=== PATIENT | female | born 1960 | race Caucasian/White ===

== ENCOUNTER 2017-09-08 14:11 | Emergency (ER) | payer OTHER, SELFPAY ==
[2017-09-08 14:12] VITALS: BP 125/70; PULSE 80; RESP 16; TEMP 36.4; O2SAT 100; BMI 26.6
[2017-09-08 14:43] VITALS: O2SAT 96
--- NOTE | 2017-09-08 14:44 | EKG12_ITS ---
Test Reason : SOB Blood Pressure : / mmHG Vent. Rate : 075 BPM Atrial Rate : 075 BPM P-R Int : 160 ms QRS Dur : 090 ms QT Int : 424 ms P-R-T Axes : 063 042 060 degrees QTc Int : 473 ms Normal sinus rhythm Normal ECG Confirmed by MESHA NORTH, MARLEE ([id number]), technical editor EMANUEL FORREST ([id number]) on 09/12/2017 1:34:25 PM Referred By: DEB Confirmed By:MARLEE ZIMMER MD
--- NOTE | 2017-09-08 14:50 | RAD_ITS ---
STUDY: X-RAY CHEST REASON FOR EXAM: Female, 56 years old. SHORNTESS OF BREATH, HX BREAST CA, SKIN CA TECHNIQUE: Single AP portable view of the chest. COMPARISON: None. FINDINGS: The lungs are clear and expanded. There is no demonstrated pleural abnormality. Normal size heart. Normal mediastinum and john. Normal visualized pulmonary arteries. Normal visualized aortic arch and descending thoracic aorta. Normal visualized thoracic spine. There is degenerative osteoarthritis of the bilateral shoulders. There is no demonstrated abnormality of the visualized soft tissue structures of the upper abdomen. RAD/Chest 1 View (Portable) IMPRESSION: Degenerative changes, as described above. No demonstrated acute cardiopulmonary process. Electronically Signed: Gail Lara MD at 15:27 EDT Tel , Service support ,
[2017-09-08 14:58] VITALS: PULSE 78; RESP 18
[2017-09-08] MEDS: Ipratropium/Albuterol Sulfate 3 ML AMPUL.NEB INHALATION (14:58)
[2017-09-08 15:10] LABS: Absolute Lymphocyte Count 0.62 X10^3/ul (0.83-4.51); Absolute Neutrophil Count 6.8 X10^3/uL (2.0-7.7); Basophil# 0.01 X10^3/uL; Basophil% 0.1 % (0-1); Eosinophil# 0.11 X10^3/uL; Eosinophils% 1.3 % (0-5); Hematocrit 37.3 % (37-47); Hemoglobin 12.6 g/dl (12.0-15.0); Lymphocyte # 0.62 X10^3/ul (4.0); Lymphocyte % 7.5 % (19-41); Mean Corp Hgb Conc 33.8 g/gl (32-36); Mean Corpuscular Hgb 29.4 pg (27.0-32.0); Mean Corpuscular Volume 86.9 fL (81-99); Monocyte# 0.61 X10^3/uL; Monocyte% 7.4 % (0-10); Neutrophil # 6.84 X10^3/uL (2.7-7.7); Neutrophil % 83.3 % (47-70); POSITIVE COUNT NO; POSITIVE DIFFERENTIAL NO; POSITIVE MORPHOLOGY NO; Platelet Count 324 K/mm3 (150-450); RBC Distribution Width CV 13.2 % (11.6-14.6); RBC Distribution Width SD 41.8 fl (35.1-43.9); Red Blood Count 4.29 M/mm3 (4.2-5.4); White Blood Count 8.2 K/mm3 (4.4-11.0)
[2017-09-08] MEDS: 0.9% Normal Saline 1,000 ML 1000 ML IV (15:15)
[2017-09-08 15:18] VITALS: BP 107/62; PULSE 78; RESP 17; O2SAT 96
[2017-09-08 15:28] LABS: Anion Gap 9 (5-15); BUN 7 mg/dL (7-18); BUN/Creat Ratio 10.6 RATIO (10-20); Calcium,Total 8.7 mg/dL (8.5-10.1); Chloride 94 mmol/L (98-107); Creatinine, Serum 0.66 mg/dL (0.55-1.02); EST Glomerular Filtration Rate 98 mL/min (>60); Est Glom Filt Rate - Afr Amer 118 mL/min (>60); Estimated Creatinine Clearance 86.98 ml/min; Glucose 121 mg/dL (74-106); Potassium 3.1 mmol/L (3.5-5.1); Sodium Level 129 mmol/L (136-145)
[2017-09-08 15:42] LABS: BNP,B-Type NATRIURETIC PEPTIDE 6.7 pg/mL (0-100)
--- NOTE | 2017-09-08 16:18 | ED.DCSUM_ITS ---
- ER Visit Summary Date of Service: 09/08/17 Chief Complaint: Fluid in lungs History of Present Illness: The patient is a 56 F with shortness of breath and cough over the past 10 days. She also reports sputum and has been feeling ill. Her PCP started her on Z-Cyrus yesterday. She has had continued symptoms. Patient has a history of breast cancer in remission, thyroid cancer remotely, and skin cancer which she also believes is in remission but she did have a recent skin procedure where they took a large biopsy. Physical Examination: Vital signs are unremarkable. Afebrile. Appears uncomfortable but nontoxic or in distress. HEENT exam is unremarkable. Heart is regular rate and rhythm. Lungs show very faint crackles in the right base greater than left base. Extremities nontender. No edema. Skin appears normal in color. She is alert and oriented. Test Results: EKG shows sinus rhythm at a rate of 75. No sign of acute ischemia or infarction pattern. No sign of heart strain, S1 Q3 T3. CBC normal. Influenza test negative. Sodium 129, potassium 3.1, chloride 84. Troponin normal. BNP normal. Chest x-ray shows degenerative changes. Emergency Department Course and Treatment: Patient received fluids and a breathing treatment while awaiting results. She felt better afterwards. Her vitals remained stable. Patient has signs and symptoms of an infectious process. We did speak about PE. Her main risk factor is her history of malignancy. She has no other signs or symptoms to suggest PE. Her symptoms are consistent with an infectious process. Patient did not want to pursue further PE workup. Patient's potassium was replaced. Her sodium has been low in the past, but this is the lowest it has been. We talked to her about salt intake. I advised her that this can be serious if it becomes too low. She will follow-up with her doctor for recheck as soon as possible. She should return if she has any new or worsening issues. This is likely a viral process, but the patient should continue taking her azithromycin. Patient has an inhaler at home. She will be discharged. Treatment Plan: Above Disposition: Discharged Impression: 1. Flulike illness 2. Hypokalemia This note was generated with [employer] software. It may contain incorrect words, spelling, and punctuation that were not noted in review of the chart prior to signing ED Disposition - Plan for ED Patient: Chief Complaint: Shortness of Breath Referrals: Kvng Pena MD [Primary Care Provider] -
--- NOTE | 2017-09-08 16:19 | ED.DEP ---
ED Disposition - Plan for ED Patient: Chief Complaint: Shortness of Breath Instructions: ED Upper Resp Infec Abx Tx Prescriptions: Ondansetron [Zofran Odt] 4 mg PO Q8H PRN PRN #10 tab PRN Reason: Nausea Referrals: Kvng Pena MD [Primary Care Provider] - Additional Instructions: Follow-up with your doctor to recheck your lungs/symptoms and your blood work. Return if worse.
[2017-09-08 16:27] VITALS: BP 117/69; PULSE 82; RESP 16; O2SAT 98
== END 2017-09-08 16:53 | disposition home or self-care (01) ==
PROVIDERS: Emergency Provider Emergency Medicine; Family Provider Family Medicine; PCP Family Medicine
DX: J11.1 Influenza due to unidentified influenza virus with other respiratory manifestations (principal); E87.6 Hypokalemia; I10 Essential (primary) hypertension; Z85.3 Personal history of malignant neoplasm of breast; Z85.850 Personal history of malignant neoplasm of thyroid; Z85.828 Personal history of other malignant neoplasm of skin; Z79.899 Other long term (current) drug therapy
CPT/HCPCS: 71045; 80048; 83880; 84484; 85025; 87804; 93005; 94640; 96360; 99285; J7030; A4216

== ENCOUNTER → 2017-11-27 13:51 | Outpatient (CLI) | payer OTHER, SELFPAY ==
--- NOTE | 2017-11-27 13:51 | DT_ITS ---
This patient was seen during an EMR downtime November 20, 2017 - November 27, 2017. This patient may have a combination of paper and electronic documentation or all paper documentation. All documentation is viewable within the e-chart portion of [facility] for each patient visit.
--- NOTE | 2017-11-27 13:53 | BI_ITS ---
MAMMOGRAPHY - BILATERAL SCREENING REASON FOR EXAM: Female, 57 years old. Routine annual screening examination. PERTINENT HISTORY: LT LUMPECTOMY 12/2016 WITH RAD TX LT MOLE REMOVED-TURNED CANCEROUS DURING RAD TX LT STEREO BX AND EXC BX 2009, LT STEREO 2003, RT STEREO BX 2000 BILAT EXC BX 1995 P/H THYROID CANCER WITH RAD TX 1989 AGE 29 LT MOLE MARKED TECHNIQUE: Digital bilateral breast mario (3D mammographic acquisition) in the CC and MLO projections. 2-D mediolateral oblique (MLO) and craniocaudad (CC) views of both breasts were obtained. CAD: Full Field Digital Mammography with Computer Added Detection was performed. COMPARISON: 11/21/2016, 11/23/2016, 11/17/2015 and 11/12/2014 FINDINGS: Breast Composition: The breasts are heterogeneously dense, which may obscure small masses. There are no dominant masses or suspicious calcifications. There is a radial scar in the upper part of the left breast from prior lumpectomy. No other significant abnormalities are identified. BI/SCREENING MAMM (CAD), BILAT IMPRESSION: Stable bilateral screening mammogram. Yearly follow-up mammogram recommended. (A) ASSESSMENT CATEGORY: BIRADS Category 2: Benign. A letter regarding these results will be sent to the patient by the facility within 30 days. Approximately 10% of breast cancers are not detected by mammography. A normal mammogram should not delay biopsy of a clinically suspicious abnormality. [id number] Electronically Signed: Gail Lara MD at 12:07 EDT Tel , Service support ,
== END ==
PROVIDERS: Family Provider Family Medicine; PCP Family Medicine; Visit Provider Internal Medicine Hematology & Oncology
DX: Z12.31 Encounter for screening mammogram for malignant neoplasm of breast (principal); D05.12 Intraductal carcinoma in situ of left breast
CPT/HCPCS: 77063; 77067

== ENCOUNTER → 2018-04-28 08:45 | Outpatient (CLI) | payer OTHER, SELFPAY ==
[2018-04-28 09:46] LABS: Anion Gap 5 (5-15); BUN 17 mg/dL (7-18); BUN/Creat Ratio 17.4 RATIO (10-20); Chloride 97 mmol/L (98-107); Cholesterol 256 mg/dL (200); Creatinine, Serum 0.98 mg/dL (0.55-1.02); EST Glomerular Filtration Rate 62 mL/min (>60); Est Glom Filt Rate - Afr Amer 75 mL/min (>60); Glucose 106 mg/dL (74-106); High Density Lipoprotein 81 mg/dL; Potassium 3.4 mmol/L (3.5-5.1); Sodium Level 134 mmol/L (136-145); Thyroid Stim Hormone (TSH) 4.03 uIU/mL (0.358-3.74); Triglycerides 67 mg/dL; Very Low Density Lipoprotein 13 mg/dL (5-40)
== END ==
PROVIDERS: Family Provider Family Medicine; PCP Family Medicine; Referring Provider Family Medicine; Visit Provider Family Medicine
DX: I10 Essential (primary) hypertension (principal); E03.9 Hypothyroidism, unspecified; E78.00 Pure hypercholesterolemia, unspecified
CPT/HCPCS: 36415; 80048; 80061; 84443

== ENCOUNTER → 2018-07-28 08:27 | Outpatient (CLI) | payer OTHER, SELFPAY ==
[2018-07-28 10:05] LABS: Cholesterol 239 mg/dL (200); High Density Lipoprotein 65 mg/dL; T4 Free Direct 1.19 ng/dL (0.76-1.46); Thyroid Stim Hormone (TSH) 1.23 uIU/mL (0.358-3.74); Triglycerides 124 mg/dL; Very Low Density Lipoprotein 25 mg/dL (5-40)
== END ==
PROVIDERS: Family Provider Family Medicine; PCP Family Medicine; Referring Provider Family Medicine; Visit Provider Family Medicine
DX: E78.00 Pure hypercholesterolemia, unspecified (principal); E03.9 Hypothyroidism, unspecified
CPT/HCPCS: 36415; 80061; 84439; 84443

== ENCOUNTER → 2018-11-29 | Outpatient (CLI) | payer OTHER, SELFPAY ==
--- NOTE | 2018-11-29 09:50 | BI_ITS ---
MAMMOGRAPHY - BILATERAL SCREENING REASON FOR EXAM: Female, 57 years old. Routine annual screening examination. PERTINENT HISTORY: Personal history of breast cancer. Prior left lumpectomy with radiation treatment. Minimal left stereotactic breast biopsy and excisional breast biopsy. Prior right stereotactic and excisional breast biopsies. TECHNIQUE: Digital bilateral breast annetta (3D mammographic acquisition) in the CC and MLO projections. 2-D mediolateral oblique (MLO) and craniocaudad (CC) views of both breasts were obtained. CAD: Full Field Digital Mammography with Computer Added Detection was performed. COMPARISON: Comparison is made with prior study dated November 27, 2017 and December 21, 2016. FINDINGS: Breast Composition: The breasts are heterogeneously dense, which may obscure small masses. Postoperative architectural distortion in the upper central deep portion of the left breast in keeping with history of prior excisional biopsy. Stable 1 cm x 9.4 cm partially calcified nodule in the central retroareolar region of the right breast. This most likely represents a calcifying fibroadenoma. No other significant abnormalities are identified. There has been no significant change since the prior study. BI/SCREEN MAMM (CAD) W/ANNETTA BILAT IMPRESSION: Stable bilateral screening mammogram. Yearly follow-up mammogram recommended. (A) ASSESSMENT CATEGORY: BIRADS Category 2: Benign. A letter regarding these results will be sent to the patient by the facility within 30 days. Approximately 10% of breast cancers are not detected by mammography. A normal mammogram should not delay biopsy of a clinically suspicious abnormality. [id number] Electronically Signed: Indio Emerson, at 13:35 EDT , Service support ,
== END | disposition home or self-care (01) ==
LOC: OPBI 09:49
PROVIDERS: Family Provider Family Medicine; PCP Family Medicine; Referring Provider Internal Medicine Hematology & Oncology; Visit Provider Internal Medicine Hematology & Oncology
DX: D05.12 Intraductal carcinoma in situ of left breast (principal); N60.99 Unspecified benign mammary dysplasia of unspecified breast; Z12.31 Encounter for screening mammogram for malignant neoplasm of breast
CPT/HCPCS: 77063; 77067

== ENCOUNTER → 2019-07-26 | Outpatient (CLI) | payer OTHER, SELFPAY ==
[2019-07-26 16:56] LABS: ALB/GLOB Ratio 1.4 RATIO (0.9-2.4); AST(SGOT) 19 U/L (15-37); Alanine Aminotransfer ALT/SGPT 27 U/L (13-56); Albumin, Serum 4.2 g/dL (3.2-5.0); Alkaline Phosphatase 70 U/L (45-117); Anion Gap 4 (5-15); BUN 15 mg/dL (7-18); BUN/Creat Ratio 18.8 RATIO (10-20); Calcium,Total 9.4 mg/dL (8.5-10.1); Chloride 99 mmol/L (98-107); Cholesterol 238 mg/dL (200); EST Glomerular Filtration Rate 78 mL/min (>60); Est Glom Filt Rate - Afr Amer 94 mL/min (>60); Free T3 2.3 pg/mL (2.18-3.98); Globulin 3.1 g/dL (2.2-4.2); Glucose 90 mg/dL (74-106); High Density Lipoprotein 67 mg/dL; Potassium 3.7 mmol/L (3.5-5.1); Protein, Total 7.3 g/dL (6.4-8.2); Sodium Level 133 mmol/L (136-145); T4 Free Direct 1.28 ng/dL (0.76-1.46); Thyroid Stim Hormone (TSH) 1.04 uIU/mL (0.358-3.74); Triglycerides 97 mg/dL; Very Low Density Lipoprotein 19 mg/dL (5-40)
[2019-07-26 16:59] LABS: Vitamin D,25 Hydroxy 54.4 ng/mL (29.95-100.01)
== END | disposition home or self-care (01) ==
LOC: MFPLAB 14:20
PROVIDERS: PCP Family Medicine; Referring Provider Family Medicine; Visit Provider Family Medicine
DX: I10 Essential (primary) hypertension (principal); E03.9 Hypothyroidism, unspecified; E55.9 Vitamin D deficiency, unspecified
CPT/HCPCS: 36415; 80053; 80061; 82306; 84436; 84439; 84443; 84481

== ENCOUNTER → 2019-12-02 09:48 | Outpatient (CLI) | payer OTHER, SELFPAY ==
--- NOTE | 2019-12-02 09:51 | BI_ITS ---
MAMMOGRAPHY - BILATERAL SCREENING REASON FOR EXAM: Female, 59 years old. Routine annual screening examination. PERTINENT HISTORY: Personal history of breast cancer. Prior left lumpectomy and radiation treatment. TECHNIQUE: Digital bilateral breast annetta (3D mammographic acquisition) in the CC and MLO projections. 2-D mediolateral oblique (MLO) and craniocaudad (CC) views of both breasts were obtained. CAD: Full Field Digital Mammography with Computer Added Detection was performed. COMPARISON: Comparison is made with prior examination dated November 29, 2018 and November 27, 2017. FINDINGS: Breast Composition: The breasts are heterogeneously dense, which may obscure small masses. There are no dominant masses or suspicious calcifications. The patient is status post lumpectomy in the deep upper lateral aspect of the left breast. Postoperative scarring is seen. Stable thickening of the periareolar region. Stable 9.4 mm partially calcified nodule in the central retroareolar region of the right breast. This most likely represents a calcifying fibroadenoma. No other significant abnormalities are identified. There has been no significant change since the prior study. BI/SCREEN MAMM (CAD) W/ANNETTA BILAT IMPRESSION: Stable bilateral screening mammogram. Yearly follow-up mammogram recommended. (A) ASSESSMENT CATEGORY: BIRADS Category 2: Benign. A letter regarding these results will be sent to the patient by the facility within 30 days. Approximately 10% of breast cancers are not detected by mammography. A normal mammogram should not delay biopsy of a clinically suspicious abnormality. [id number] Electronically Signed: Indio Emerson, at 11:08 EDT , Service support ,
== END ==
PROVIDERS: PCP Family Medicine; Referring Provider Internal Medicine Hematology & Oncology; Visit Provider Internal Medicine Hematology & Oncology
DX: Z12.31 Encounter for screening mammogram for malignant neoplasm of breast (principal); D05.12 Intraductal carcinoma in situ of left breast
CPT/HCPCS: 77063; 77067

== ENCOUNTER → 2020-04-22 09:33 | Outpatient (CLI) | payer OTHER, SELFPAY ==
[2020-04-22 13:22] LABS: Anion Gap 6 (5-15); BUN 9 mg/dL (7-18); BUN/Creat Ratio 10.8 RATIO (10-20); Chloride 97 mmol/L (98-107); Cholesterol 232 mg/dL (200); Creatinine, Serum 0.84 mg/dL (0.55-1.02); EST Glomerular Filtration Rate 74 mL/min (>60); Est Glom Filt Rate - Afr Amer 89 mL/min (>60); Glucose 96 mg/dL (74-106); High Density Lipoprotein 71 mg/dL; Potassium 3.7 mmol/L (3.5-5.1); Sodium Level 133 mmol/L (136-145); Triglycerides 94 mg/dL; Very Low Density Lipoprotein 19 mg/dL (5-40)
== END ==
PROVIDERS: PCP Family Medicine; Referring Provider Family Medicine; Visit Provider Family Medicine
DX: E03.9 Hypothyroidism, unspecified (principal); I10 Essential (primary) hypertension
CPT/HCPCS: 36415; 80048; 80061; 84443

== ENCOUNTER → 2020-10-19 08:47 | Outpatient (CLI) | payer OTHER, SELFPAY ==
[2020-10-19 10:54] LABS: Anion Gap 8 (5-15); BUN 11 mg/dL (7-18); BUN/Creat Ratio 16.7 RATIO (10-20); Calcium,Total 9.2 mg/dL (8.5-10.1); Chloride 93 mmol/L (98-107); Cholesterol 206 mg/dL (200); Creatinine, Serum 0.66 mg/dL (0.55-1.02); EST Glomerular Filtration Rate 97 mL/min (>60); Est Glom Filt Rate - Afr Amer 117 mL/min (>60); Free T3 2.3 pg/mL (2.18-3.98); Glucose 104 mg/dL (74-106); High Density Lipoprotein 71 mg/dL; Potassium 3.4 mmol/L (3.5-5.1); Sodium Level 132 mmol/L (136-145); T4 Free Direct 1.68 ng/dL (0.76-1.46); Triglycerides 49 mg/dL; Very Low Density Lipoprotein 10 mg/dL (5-40)
== END ==
PROVIDERS: PCP Family Medicine; Visit Provider Family Medicine
DX: I10 Essential (primary) hypertension (principal); E03.9 Hypothyroidism, unspecified
CPT/HCPCS: 36415; 80048; 80061; 84439; 84443; 84481

== ENCOUNTER → 2020-12-04 08:28 | Outpatient (CLI) | payer OTHER, SELFPAY ==
--- NOTE | 2020-12-04 08:31 | BI_ITS ---
MAMMOGRAPHY - BILATERAL SCREENING REASON FOR EXAM: Female, 60 years old. Routine annual screening examination. PERTINENT HISTORY: Personal history of breast cancer. Prior left lumpectomy with radiation treatment. Remote left stereotactic biopsy. Prior right stereotactic biopsy and bilateral excisional breast biopsies. TECHNIQUE: Digital bilateral breast annetta (3D mammographic acquisition) in the CC and MLO projections. 2-D mediolateral oblique (MLO) and craniocaudad (CC) views of both breasts were obtained. CAD: Full Field Digital Mammography with Computer Added Detection was performed. COMPARISON: Comparison is made with prior study dated 12/02/2019 and 11/29/2018. FINDINGS: Breast Composition: The breasts are heterogeneously dense, which may obscure small masses. The patient is status post lumpectomy in the upper deep central portion of the left breast with resultant deformity and postoperative scarring. Since prior study, there has been an increase in the linear calcifications just anterior to the surgical site. A biopsy is recommended for further evaluation. Stable thickening of the areolar region of the left breast. Stable 9.4 mm partially calcified nodule in the central retroareolar region of the right breast. No other significant abnormalities are identified. BI/SCRN MAMM (CAD)W/ANNETTA BILAT IMPRESSION: Increasing calcifications in the anterior aspect of the left lumpectomy as compared to prior study. Tissue diagnosis is recommended. ASSESSMENT CATEGORY: BIRADS Category 4: Suspicious - Biopsy Should Be Considered. A letter regarding these results will be sent to the patient by the facility within 30 days. Approximately 10% of breast cancers are not detected by mammography. A normal mammogram should not delay biopsy of a clinically suspicious abnormality. [id number] Electronically Signed: Indio Emerson MD at 9:52 EDT , Service support ,
[2020-12-04 10:16] LABS: Free T3 2.6 pg/mL (2.18-3.98); T4 Free Direct 1.48 ng/dL (0.76-1.46); Thyroid Stim Hormone (TSH) 0.16 uIU/mL (0.358-3.74)
== END ==
PROVIDERS: PCP Family Medicine; Referring Provider Internal Medicine Hematology & Oncology; Visit Provider Internal Medicine Hematology & Oncology
DX: Z12.31 Encounter for screening mammogram for malignant neoplasm of breast (principal); D05.12 Intraductal carcinoma in situ of left breast; E03.9 Hypothyroidism, unspecified
CPT/HCPCS: 36415; 77063; 77067; 84439; 84443; 84481

== ENCOUNTER → 2020-12-16 10:42 | Outpatient (CLI) | payer OTHER, SELFPAY ==
[2020-12-14 05:22] VITALS: BMI 24.4
--- NOTE | 2020-12-16 | IMM_PTH ---
PATIENT: CLEMENTE GRANADOS LOC: [facility] U#:[id number] AGE/SX: 64/F ROOM: RE12/16/[address]: Dr. Patrice Bonilla MD : 1960 BED: DIS: SPEC #: [id number] RECD: 12/17/20 11:37 STATUS: KLARISSA REQ #: [id number] RENATA: 12/16/20 00:[address]: Patrice Bonilla DEPT: IMMUNOHISTOCHEMISTRY RECD BY: Maegan Reed ENTERED: 12/17/20 11:38 SP TYPE: IMMUNO OTHR DR: Dr. Kvng Kerr MD Tissues: Left breast, NOS Procedures: CALPONIN-1 (add) CK5-6 (add) CK8 (add) E-CAD (add) HER2 ROMULO (add) KI-67 (add) P53 (add) NC (add) P40 (add) ER (initial) [facility]YS[facility] INSTIT[facility] [address] [address] SPECIMEN INFORMATION: Tissue Source: Left breast Clinical Info: Left anterior to previous lumpectomy site breast microcalcifications Specimen Number: [id number] #2 CPT code: 75985, 11715 x6, 06965 x3 METHODOLOGY: Deparaffinized sections of prefer/formalin-fixed tissue or PAP/DQ stained slides are incubated with monoclonal/polyclonal antibodies/oligonucleotide probes. Localization is made via biotin free immunoperoxidase method. Appropriate controls are performed and reacted as expected. Results on target cell population are indicated in the following table: RESULTS: ANTIBODY / CLONE RESULT Block 2 P53 (DO-7) negative Ki-67 (30-9) positive, 15% CK8 (23bpwbW48) positive CK5-6 (D5 & 1684) negative Calponin-1 (HL754Z) positive P40 (BC28) positive E-Cad (ECH-6) positive MORPHOMETRIC ANALYSIS ER (clone 6F11) negative (0%) NC (clone 16/1E2) negative (0%) Her-2Neu (clone CB11) positive 3+ The prognostic test for HER2 is performed on formalin-fixed paraffin embedded tissue. A 3+ (positive) staining pattern is defined as intense, homogeneous, complete, circumferential membranous staining in >10% of contiguous tumor cells. A similar weak (2+) staining pattern is interpreted as equivocal. CRISTIANE follow-up testing is recommended for all equivocal cases. Positivity/negativity for ER/NC is reported if > or < 1% of the tumor cells are immuno- reactive, respectively. The ASCO/CAP criteria is used for scoring. Reference: Journal of Clinical Oncology, 2013; 31:8522-7380 & 2010; 16:5093-3183. Duration of fixation: 8.5 Hrs; Sample Adequate: Yes. These assays have not been validated on decalcified tissues. Results should be interpreted with caution given the likelihood of false negativity on decalcified specimens. These tests were developed and their performance characteristics determined by [facility]. They may not have been cleared or approved by the U.S. Food and Drug Administration. The FDA has determined that such clearance or approval is not necessary. The above immunohistochemical/dualISH markers are ordered and reviewed by the Pathologist. INTERPRETATION: Left breast, stereotactic core biopsy: Ductal carcinoma insitu. AM:wild 12/22/2020
--- NOTE | 2020-12-16 11:00 | HP.PCM_ITS ---
History and Physical Date of Admission: 12/16/20 Intake Visit Reasons: Birads 4 Chief Complaint: abn mammo left, hx breast cancer Manager Support Services Required: No Is patient in pain?: No Allergies ciprofloxacin [From Cipro] Adverse Reaction (Mild, Verified 12/14/20 07:35) GI upset Is last menstrual period known: No Post menopausal: Yes Patient : No PFSH Medical History (Updated 12/14/20 @ 07:[address] Patrice Bonilla MD) History of breast cancer History of skin cancer History of thyroid cancer Surgical History (Updated 12/14/20 @ 07:34 by Vicenta Tracy) History of bilateral breast biopsy History of lumpectomy of left breast History of tonsillectomy History of total thyroidectomy S/P fine needle biopsy Social History Smoking Status: Never smoker HPI HPI HPI: CLEMENTE GRANADOS, is a 60 F who presents to the office today for surgical consultation regarding abnormal mammogram. The patient is referred by Dr. Kvng Kerr and a written copy of my surgical consult recommendations will return to him. The patient has had multiple previous breast biopsies. She has had at least 2 previous lumpectomies on the right both benign. She thinks she is also previously had at least 2 biopsies on the left. Her most recent intervention on the left was performed by Dr. Nithin Terrazas. Stereotactic core biopsy by report demonstrated DCIS and then subsequently on December 21, 2016 he did a stereotactic wire localization with left breast lumpectomy and sentinel lymph node biopsy. 1 sentinel lymph node was negative. The specimen measured 7.5 x 7 x 4 cm. A 0.3 cm focus of DCIS was identified. She did receive post radiation therapy. A0. Menarche age 11. First child born when she was 20. She did not breast-feed. Family history is negative for breast cancer. She has not been on estrogen replacement therapy. She was on control therapy for approximately 3 years or earlier. She goes on to state that subsequent to the left breast lumpectomy close to that incision she developed a skin lesion of concern and in [facility] had that excised. She does not recall whether that was basal cell or squamous cell or melanoma. However no additional treatment has been offered. She notes that her left breast is constantly sore. No nipple discharge or bleeding MAMMOGRAPHY - BILATERAL SCREENING REASON FOR EXAM: Female, 60 years old. Routine annual screening examination. PERTINENT HISTORY: Personal history of breast cancer. Prior left lumpectomy with radiation treatment. Remote left stereotactic biopsy. Prior right stereotactic biopsy and bilateral excisional breast biopsies. TECHNIQUE: Digital bilateral breast annetta (3D mammographic acquisition) in the CC and MLO projections. 2-D mediolateral oblique (MLO) and craniocaudad (CC) views of both breasts were obtained. CAD: Full Field Digital Mammography with Computer Added Detection was performed. COMPARISON: Comparison is made with prior study dated 12/02/2019 and 11/29/2018. FINDINGS: Breast Composition: The breasts are heterogeneously dense, which may obscure small masses. The patient is status post lumpectomy in the upper deep central portion of the left breast with resultant deformity and postoperative scarring. Since prior study, there has been an increase in the linear calcifications just anterior to the surgical site. A biopsy is recommended for further evaluation. Stable thickening of the areolar region of the left breast. Stable 9.4 mm partially calcified nodule in the central retroareolar region of the right breast. No other significant abnormalities are identified. BI/SCRN MAMM (CAD)W/ANNETTA BILAT IMPRESSION: Increasing calcifications in the anterior aspect of the left lumpectomy as compared to prior study. Tissue diagnosis is recommended. ASSESSMENT CATEGORY: BIRADS Category 4: Suspicious - Biopsy Should Be Considered. A letter regarding these results will be sent to the patient by the facility within 30 days. Approximately 10% of breast cancers are not detected by mammography. A normal mammogram should not delay biopsy of a clinically suspicious abnormality. [id number] Electronically Signed: Indio Emerson MD at 9:52 EDT , Service support , December 21, 2016 MICROSCOPIC DIAGNOSIS A. Left breast lumpectomy with needle localization:Ductal carcinoma in situ.Focal fibrocystic changes and intraductal hyperplasia with atypia.Changes consistent with previous biopsy site. B. [place] lymph node, left, biopsy:One lymph node, negative for metastatic carcinoma.SJ:wild 12/26/16 DUCTAL CARCINOMA IN SITU SUMMARY:Specimen -partial breast.Procedure -excision with wire-guided localization.Lymph node sampling ?sentinel lymph node Specimen integrity -single intact specimen. Specimen size ?7.5 x 7 x 4 cm Specimen laterality ?leftTumor site ?center breast Size (extent) of DCIS ?0.3 x 0.3 cm (measured on microscopic slide)Number of blocks with DCIS -2Number of blocks examined -12Histologic type -ductal carcinoma in situ. Architectural patterns -comedoNuclear grade -Grade 3 (high)Necrosis -present, central (expansive comedo necrosis). Margins: Margins uninvolved by DCIS. See comment. A. The biopsy cavity is present close to the inferior margin, however, the focus of DCIS is 1.1 cm away from the closest inferior margin and is present adjacent to the biopsy cavity. ROS General General: Yes breast cancer; No weight change, appetite, fatigue, colon cancer or weakness HEENT HEENT: No difficulty swallowing, eye injury, eye surgery, swollen glands or hoarseness Endo Endocrine: Yes thyroid cancer; No thyroid disease, diabetes mellitus, Hair loss, heat intolerance or cold intolerance Breast Breast: Yes abnormal mammogram; No left breast lump, right breast lump, nipple discharge, breast pain, abnormal US or breast enlargement Musc Musculoskeletal: No back problems, arthritis, rheumatoid arthritis, gout or joint pain Cardio Cardiovascular: No murmur, pacemaker, heart disease, atrial fibrillation, high blood pressure, heart attack, heart stent, palpitations, shortness of breat with exertion or chest pain Psych Psychiatric: Yes anxiety; No depression or hearing voices Resp Respiratory: No shortness of breath, No sleep apnea, No cough, No COPD, No asthma, No emphysema and No wheezing Gastro Gastrointestinal: No abdominal pain, No nausea or vomiting, No diarrhea, No constipation, No blood in stool, No acid reflux, No hemorrhoids, No ulcers, No gallbladder problem and No black,tarry stools Gregorio Hematologic: No blood thinners, No blood disorders, No bleeding, No anemia and No blood clots Neuro Neurologic: No weakness Exam Chest Other: Right breast: Well-healed transverse incision medial right breast. Well- healed curvilinear incision upper outer right breast. Diffuse fibrous change. No nipple discharge. No distortion. No axillary or clavicular adenopathy Left breast: Transfer incision upper mid left breast with moderate soft tissue loss. Well-healed surgical incision curvilinear outer mid left breast. Diffuse tenderness. No focal mass. No nipple discharge. No axillary or clavicular adenopathy Resp Effort & Inspection: normal respiratory effort Auscultation: clear to auscultation bilaterally COVID (Procedure Consent) Procedure Criteria Procedure Criteria: Yes Elective The surgeon/proceduralist and patient have discussed in detail the risk of exposure to and/or potential harm posed by the COVID-19 virus with having a surgery/procedure at this time versus the risk of delaying the surgery/procedure. It is not possible to know either the risk of delaying the surgery or procedure or chance of getting an infection with perfect accuracy, but a joint decision was made between the patient and the surgeon/proceduralist to proceed at this time with the scheduled surgery/procedure as indicated on the consent form. Assessment and Plan Assessment and Plan (1) Abnormal mammogram of left breast: Status: Acute Plan - Dr. Patrice Bonilla MD: 60-year-old female with multiple bilateral previous breast biopsies and a history of DCIS 3 mm in size upper mid left breast with posttreatment radiation treatment and also sentinel node biopsy performed at the time of her lumpectomy. I have personally reviewed her mammographic images. She is interpreted as BI- RADS Category 4. The calcifications involving the left breast on my review appear to be coarse linear and consistent with postoperative changes. Based upon her BI-RADS Category 4 rating I am recommending to her a stereotactic needle core biopsy left breast. She is aware that our sampling will represent a small amount of the tissue area involved. Based upon her history and presentation however I do not believe at this time that a reexcision of the area is indicated. She has had an opportunity to ask and have questions answered. We will schedule and expedite her care. Copy: Dr. Kvng Kerr and Dr. Jet Bonilla M.D., F.A.C.S. Coding Level of Care Code 22942 Diagnoses Abnormal mammogram of left breast R92.8 Pt reviewed and no changes. Dionisio NORTH
--- NOTE | 2020-12-16 11:05 | BRBX_PTH ---
PATIENT: CLEMENTE GRANADOS LOC: [facility] U#:[id number] AGE/SX: 64/F ROOM: RE12/16/[address]: Dr. Patrice Bonilla MD : 1960 BED: DIS: SPEC #: [id number] RECD: 12/16/20 11:54 STATUS: KLARISSA HERNADEZHuang #: [id number] RENATA: 12/16/20 11:[address]: Patrice Bonilla DEPT: SURGICAL PATHOLOGY RECD BY: Marixa Turner ENTERED: 12/16/20 13:22 SP TYPE: BREAST BX OTHR DR: Dr. 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 3/3 Type ? solid with comedo necrosis and associated microcalcifications Maximal length ? 9.5 millimeters See comment. AM:wild 12/17/2020 COMMENT Immunohistochemistry ([id number]) supports the above diagnosis. Case has been reviewed in consultation with Dr. Cantrell who concurs with the above diagnosis. IDC:MAZIN MICROSCOPIC DESCRIPTION Slides are reviewed. GROSS DESCRIPTION Received in fixative is one container labeled with the patient name and designated left breast. The specimen consists of multiple elongated fragments of guerra-yellow fibroadipose tissue that in aggregate measure 7.5 x 3 x 0.3 cm. The entire specimen is submitted in three cassettes. / MAZIN:wild 12/16/20 TC:0 CPT: 39183
--- NOTE | 2020-12-16 11:25 | OP.PCM_ITS ---
Problems Associated Problem List Diagnoses (1) Abnormal mammogram of left breast: Report of Operation Date of Procedure: 12/16/20 Pre-Operative Diagnosis: Diffuse linear calcifications deep central left breast Post-Operative Diagnosis: Same Surgery/Procedure Performed:: Stereotactic needle core biopsy left breast Description of Surgical Findings:: Timeout and informed consent was obtained. Patient was taken to the stereotactic suite placed upon the table. The left breast was placed in a cc view. The diffuse linear and clustered microcalcifications rapidly identified. Stereotactic images obtained. Digital information was obtained on the single target site. The breast was prepped with Betadine. 1% lidocaine was used as a local anesthetic. A total of 10 cc was used. A small stab incision was created. An 8 gauge resolved needle was advanced to prefire depth. Prefire films were obtained demonstrating adequate localization. The device was fired. A total of 12 separate cores were obtained. She tolerated the procedure well. Images of the cores were obtained. It is of note that multiple cores had multiple microcalcifications present. A dumbbell marking clip was left at 12 o'c lock position. The patient was released from the device pressure was held for hemostasis Steri-Strip Telfa OpSite dressing applied ice pack applied. She was given activity wound care instructions. The specimens were immediately transferred to formalin. Specimens cores. Drains none. Blood loss minimal. Further office follow-up will be pending pathology. Patrice Bonilla M.D., F.A.C.S. Surgeon: Patrice Bonilla
== END ==
PROVIDERS: PCP Family Medicine; Referring Provider Surgery; Visit Provider Surgery
DX: D05.12 Intraductal carcinoma in situ of left breast (principal)
CPT/HCPCS: 19081; 88305; 88341; 88342; J7050

== ENCOUNTER 2021-01-07 07:40 | Day surgery (SDC) | payer OTHER, SELFPAY ==
[2020-12-22 05:23] VITALS: BMI 24.4
[2021-01-06 11:44] LABS: Hematocrit 35.3 % (37-47); Hemoglobin 12.1 g/dL (12.0-15.0); Mean Corp Hgb Conc 34.3 g/dL (32-36); Mean Corpuscular Hgb 30.4 pg (27.0-32.0); Mean Corpuscular Volume 88.7 fL (81-99); Platelet Count 319 K/mm3 (150-450); RBC Distribution Width CV 13.2 % (11.6-14.6); RBC Distribution Width SD 43.1 fl (35.1-43.9); Red Blood Count 3.98 M/mm3 (4.2-5.4); White Blood Count 5.4 K/mm3 (4.4-11.0)
[2021-01-06 12:08] LABS: ALB/GLOB Ratio 1.5 RATIO (0.9-2.4); AST(SGOT) 14 U/L (15-37); Alanine Aminotransfer ALT/SGPT 19 U/L (13-56); Alkaline Phosphatase 62 U/L (45-117); Anion Gap 6 (5-15); BUN 9 mg/dL (7-18); BUN/Creat Ratio 13.5 RATIO (10-20); Calcium,Total 8.9 mg/dL (8.5-10.1); Chloride 96 mmol/L (98-107); Creatinine, Serum 0.66 mg/dL (0.55-1.02); EST Glomerular Filtration Rate 96 mL/min (>60); Est Glom Filt Rate - Afr Amer 116 mL/min (>60); Globulin 2.7 g/dL (2.2-4.2); Glucose 96 mg/dL (74-106); Potassium 3.3 mmol/L (3.5-5.1); Protein, Total 6.7 g/dL (6.4-8.2); Sodium Level 133 mmol/L (136-145)
[2021-01-07] VITALS (8 sets, daily range): BP systolic 109–133; BP diastolic 60–77; PULSE 60–89; RESP 14–18; TEMP 35.7–36.6; O2SAT 99–100; BMI 29.0
--- NOTE | 2021-01-07 | IMM_PTH ---
PATIENT: CLEMENTE GRANADOS LOC: [facility] U#:[id number] AGE/SX: 60/F ROOM: RE01/07/[address]: Dr. Patrice Bonilla MD : 1960 BED: DIS: 01/07/2021 SPEC #: [id number] RECD: 01/12/21 11:18 STATUS: KLARISSA REQ #: [id number] RENATA: 01/07/21 00:[address]: Patrice Bonilla DEPT: IMMUNOHISTOCHEMISTRY RECD BY: Maegan Reed ENTERED: 01/12/21 11:19 SP TYPE: IMMUNO OTHR DR: Dr. Jet Swift MD Tissues: Left breast, NOS Procedures: E-CAD (initial) CALPONIN-1 (add) CK8 (add) P40 (add) PHYSICIAN & INSTITUTION [place] [id number] SPECIMEN INFORMATION: Tissue Source: Left breast Clinical Info: DCIS left breast with comedo necrosis Specimen Number: [id number] #11 CPT code: 09508, 96267 x3 METHODOLOGY: Deparaffinized sections of prefer/formalin-fixed tissue or PAP/DQ stained slides are incubated with monoclonal/polyclonal antibodies/oligonucleotide probes. Localization is made via biotin free immunoperoxidase method. Appropriate controls are performed and reacted as expected. Results on target cell population are indicated in the following table: RESULTS: ANTIBODY / CLONE RESULT Block 11 E-Cad (ECH-6) positive CK8 (40bwywR54) positive Calponin-1 (GG888R) positive P40 (BC28) positive These tests were developed and their performance characteristics determined by [facility]. They may not have been cleared or approved by the U.S. Food and Drug Administration. The FDA has determined that such clearance or approval is not necessary. The above immunohistochemical/dualISH markers are ordered and reviewed by the Pathologist. INTERPRETATION: Left breast, mastectomy: Ductal carcinoma in situ. SJ:wild 01/13/2021
--- NOTE | 2021-01-07 | BREAST_PTH ---
PATIENT: CLEMENTE GRANADOS LOC: [facility] U#:[id number] AGE/SX: 60/F ROOM: RE01/07/[address]: Dr. Patrice Bonilla MD : 1960 BED: DIS: 01/07/2021 SPEC #: [id number] RECD: 01/07/21 13:34 STATUS: KLARISSA REHuang #: [id number] RENATA: 01/07/21 00:[address]: Patrice Bonilla DEPT: SURGICAL PATHOLOGY RECD BY: Riley Saldivar ENTERED: 01/07/21 13:35 SP TYPE: BREAST OTHR DR: Dr. Jet Swift MD Tissues: Left breast, NOS Procedures: Surgery Specimen Level V HEADER OPERATION: Total mastectomy PRE-OP DIAGNOSIS: DCIS left breast with comedo necrosis TISSUE SUBMITTED: Left breast, suture monroy axillary aspect of ellipse MICROSCOPIC DIAGNOSIS Left breast, mastectomy: Ductal carcinoma in situ. Changes consistent with previous biopsy site. One lymph node (intramammary), negative for metastatic carcinoma. See cancer summary in the comment section. SJ:rg 01/13/2021 COMMENT DUCTAL CARCINOMA IN SITU CANCER SUMMARY Procedure ? total mastectomy Specimen laterality ? left Tumor site ? central portion Size (extent) of DCIS ? DCIS measures 1.2 x 0.5 cm (measured microscopically). It is adjacent to the previous biopsy cavity. Number of blocks with DCIS ? 4 Number of blocks examined ? 16 Histologic type ? ductal carcinoma in situ Architectural pattern ? solid, comedo and cribriform Nuclear grade ? nuclear grade 3 Necrosis ? present, central (expansive ?comedo? necrosis) Margin ? uninvolved by ductal carcinoma in situ. The biopsy cavity is 1 cm away from the closest posterior margin. Regional lymph nodes ? Total number of lymph node examined ? 1 (intramammary lymph node). Number of sentinel lymph node examined ? 0. Number of lymph nodes with macrometastasis, micrometastasis, and isolated tumor cells - 0 Additional Pathologic Findings ? fibrocystic changes and intraductal hyperplasia without atypia. - Lobular involution. - Changes consistent with previous biopsy site. Ancillary Studies from previous specimen ([id number] / [id number]): ER ? negative (0%) TX ? negative (0%) Her2 jeet (IHC) ? positive (3+) Microcalcifications ? present in DCIS and non-neoplastic tissue. Clinical history - Please make reference to previous specimens ([id number]), left breast mass, stereotactic core biopsy with diagnosis of ductal carcinoma in situ and ([id number]) left breast, lumpectomy with diagnosis of ductal carcinoma in situ. Radiologic findings ? microcalcifications PATHOLOGIC STAGING: pTis (DCIS) pN0 pMx The above summary is in compliance with [employer] [place] [employer] (CAP) Cancer Protocols Checklist and [place] [employer] Committee on Cancer (AJCC), Staging Manual, 8th Ed. Immunohistochemistry ([id number]) supports the above diagnosis. The results are reported to Dr. Bonilla's office on 01/13/21. Case has been reviewed in consultation with Dr. Wang who concurs with the above diagnosis. IDC:AM MICROSCOPIC DESCRIPTION Slides are reviewed. GROSS DESCRIPTION Received in fixative is one container labeled with the patient's name and designated left breast. The specimen consists of a mastectomy specimen consisting of breast tissue with overlying skin ellipse. The breast tissue measures 21 x 15 x 7 cm. The skin ellipse measures 17 x 8 cm. The nipple measures 0.9 cm in greatest dimension. The skin surface shows brownish-black discoloration. No lesion is identified. The axillary aspect of the tissue is marked by a suture. The specimen is inked as follows: superior - blue, inferior - green, medial - red, lateral - orange and posterior - black. Serial sections reveal a large biopsy cavity filled with blood clot measuring 5 x 4 x 4 cm. The biopsy cavity is 1 cm away from closest posterior margin. No mass lesion is identified. Sections of the rest of the specimen reveal guerra-yellow adipose cut surfaces mixed with scant fibrous area. The biopsy cavity is flat in the central portion of the specimen. The biopsy cavity is 2.5 cm away from the closest posteriori margin. More dictation will follow after fixation. / SJ:wild 01/07/21 Program Consultant sections are submitted in 16 cassettes as follows: 1 - nipple, entirely submitted, 2??perpendicular medial and lateral margins, 3 - perpendicular superior, inferior and posterior margins, 413 - biopsy cavity with surround tissue, 14-16 - Program Consultant sections from the other area. Sections are submitted after additional fixation. / MAZIN:wild 01/08/21 TC:0 CPT: 50017
[2021-01-07] MEDS: Lactated Ringers 1,000 ML 100 ML IV ×2 (08:29→12:08)
--- NOTE | 2021-01-07 09:04 | HP.PCM_ITS ---
History and Physical Date of Admission: 01/07/21 Intake Visit Reasons: Discuss biopsy results Chief Complaint: abn mammo left, hx breast cancer Allergies ciprofloxacin [From Cipro] Adverse Reaction (Mild, Verified 12/14/20 07:35) GI upset PFS Medical History History of breast cancer History of skin cancer History of thyroid cancer Surgical History History of bilateral breast biopsy History of lumpectomy of left breast History of tonsillectomy History of total thyroidectomy S/P fine needle biopsy Social History Smoking Status: Never smoker HPI HPI HPI: CLEMENTE GRANADOS, is a 60 F who presents to the office today for surgical follow-up of a stereotactic needle core left breast biopsy that I performed for her on December 16, 2020. She had diffuse calcifications at the previous lumpectomy site which appeared to change. Pathology demonstrates ductal carcinoma in situ. Nuclear grade 3 out of 3. Solid with comedonecrosis and associated microcalcifications. Receptors is just ER is negative at 0% and UT negative at 0% and HER-2/jeet positive at 3+. It is of note that my review of her recent mammography demonstrates a very diffuse area of microcalcification involvement at the previous lumpectomy site suggesting a more diffuse presence of DCIS. My recent notes reflect the following Intake Visit Reasons: Birads 4 Chief Complaint: abn mammo left, hx breast cancer Incident Response Analyst Required: No Is patient in pain?: No Allergies ciprofloxacin [From Cipro] Adverse Reaction (Mild, Verified 12/14/20 07:35) GI upset Is last menstrual period known: No Post menopausal: Yes Patient : No PFS Medical History (Updated 12/14/20 @ 07:[address] Patrice Bonilla MD) History of breast cancer History of skin cancer History of thyroid cancer Surgical History (Updated 12/14/20 @ 07:34 by Vicenta Tracy) History of bilateral breast biopsy History of lumpectomy of left breast History of tonsillectomy History of total thyroidectomy S/P fine needle biopsy Social History Smoking Status: Never smoker HPI HPI HPI: CLEMENTE GRANADOS, is a 60 F who presents to the office today for surgical consultation regarding abnormal mammogram. The patient is referred by Dr. Kvng Kerr and a written copy of my surgical consult recommendations will return to him. The patient has had multiple previous breast biopsies. She has had at least 2 previous lumpectomies on the right both benign. She thinks she is also previously had at least 2 biopsies on the left. Her most recent intervention on the left was performed by Dr. Nithin Terrazas. Stereotactic core biopsy by report demonstrated DCIS and then subsequently on December 21, 2016 he did a stereotactic wire localization with left breast lumpectomy and sentinel lymph node biopsy. 1 sentinel lymph node was negative. The specimen measured 7.5 x 7 x 4 cm. A 0.3 cm focus of DCIS was identified. She did receive post radiation therapy. A0. Menarche age 11. First child born when she was 20. She did not breast-feed. Family history is negative for breast cancer. She has not been on estrogen replacement therapy. She was on control therapy for approximately 3 years or earlier. She goes on to state that subsequent to the left breast lumpectomy close to that incision she developed a skin lesion of concern and in [facility] had that excised. She does not recall whether that was basal cell or squamous cell or melanoma. However no additional treatment has been offered. She notes that her left breast is constantly sore. No nipple discharge or bleeding MAMMOGRAPHY - BILATERAL SCREENING REASON FOR EXAM: Female, 60 years old. Routine annual screening examination. PERTINENT HISTORY: Personal history of breast cancer. Prior left lumpectomy with radiation treatment. Remote left stereotactic biopsy. Prior right stereotactic biopsy and bilateral excisional breast biopsies. TECHNIQUE: Digital bilateral breast annetta (3D mammographic acquisition) in the CC and MLO projections. 2-D mediolateral oblique (MLO) and craniocaudad (CC) views of both breasts were obtained. CAD: Full Field Digital Mammography with Computer Added Detection was performed. COMPARISON: Comparison is made with prior study dated 12/02/2019 and 11/29/2018. FINDINGS: Breast Composition: The breasts are heterogeneously dense, which may obscure small masses. The patient is status post lumpectomy in the upper deep central portion of the left breast with resultant deformity and postoperative scarring. Since prior study, there has been an increase in the linear calcifications just anterior to the surgical site. A biopsy is recommended for further evaluation. Stable thickening of the areolar region of the left breast. Stable 9.4 mm partially calcified nodule in the central retroareolar region of the right breast. No other significant abnormalities are identified. BI/SCRN MAMM (CAD)W/ANNETTA BILAT IMPRESSION: Increasing calcifications in the anterior aspect of the left lumpectomy as compared to prior study. Tissue diagnosis is recommended. ASSESSMENT CATEGORY: BIRADS Category 4: Suspicious - Biopsy Should Be Considered. A letter regarding these results will be sent to the patient by the facility within 30 days. Approximately 10% of breast cancers are not detected by mammography. A normal mammogram should not delay biopsy of a clinically suspicious abnormality. [id number] Electronically Signed: Indio Emerson MD at 9:52 EDT , Service support , December 21, 2016 MICROSCOPIC DIAGNOSIS A. Left breast lumpectomy with needle localization:Ductal carcinoma in situ.Focal fibrocystic changes and intraductal hyperplasia with atypia.Changes consistent with previous biopsy site. B. [place] lymph node, left, biopsy:One lymph node, negative for metastatic carcinoma.SJ:wild 12/26/16 DUCTAL CARCINOMA IN SITU SUMMARY:Specimen -partial breast.Procedure -excision with wire-guided localization.Lymph node sampling ?sentinel lymph node Specimen integrity -single intact specimen. Specimen size ?7.5 x 7 x 4 cm Specimen laterality ?leftTumor site ?center breast Size (extent) of DCIS ?0.3 x 0.3 cm (measured on microscopic slide)Number of blocks with DCIS -2Number of blocks examined -12Histologic type -ductal ca rcinoma in situ. Architectural patterns -comedoNuclear grade -Grade 3 (high)Necrosis -present, central (expansive comedo necrosis). Margins: Margins uninvolved by DCIS. See comment. A. The biopsy cavity is present close to the inferior margin, however, the focus of DCIS is 1.1 cm away from the closest inferior margin and is present adjacent to the biopsy cavity. ROS General General: Yes breast cancer; No weight change, appetite, fatigue, colon cancer or weakness HEENT HEENT: No difficulty swallowing, eye injury, eye surgery, swollen glands or hoarseness Endo Endocrine: Yes thyroid cancer; No thyroid disease, diabetes mellitus, Hair loss, heat intolerance or cold intolerance Breast Breast: Yes abnormal mammogram; No left breast lump, right breast lump, nipple discharge, breast pain, abnormal US or breast enlargement Musc Musculoskeletal: No back problems, arthritis, rheumatoid arthritis, gout or joint pain Cardio Cardiovascular: No murmur, pacemaker, heart disease, atrial fibrillation, high blood pressure, heart attack, heart stent, palpitations, shortness of breat with exertion or chest pain Psych Psychiatric: Yes anxiety; No depression or hearing voices Resp Respiratory: No shortness of breath, No sleep apnea, No cough, No COPD, No asthma, No emphysema and No wheezing Gastro Gastrointestinal: No abdominal pain, No nausea or vomiting, No diarrhea, No constipation, No blood in stool, No acid reflux, No hemorrhoids, No ulcers, No gallbladder problem and No black,tarry stools Gregorio Hematologic: No blood thinners, No blood disorders, No bleeding, No anemia and No blood clots Neuro Neurologic: No weakness Exam Chest Other: Right breast: Well-healed transverse incision medial right breast. Well- healed curvilinear incision upper outer right breast. Diffuse fibrous change. No nipple discharge. No distortion. No axillary or clavicular adenopathy Left breast: Transfer incision upper mid left breast with moderate soft tissue loss. Well-healed surgical incision curvilinear outer mid left breast. Diffuse tenderness. No focal mass. No nipple discharge. No axillary or clavicular adenopathy Resp Effort & Inspection: normal respiratory effort Auscultation: clear to auscultation bilaterally COVID (Procedure Consent) Procedure Criteria Procedure Criteria: Yes Elective The surgeon/proceduralist and patient have discussed in detail the risk of exposure to and/or potential harm posed by the COVID-19 virus with having a surgery/procedure at this time versus the risk of delaying the surgery/procedure. It is not possible to know either the risk of delaying the surgery or procedure or chance of getting an infection with perfect accuracy, but a joint decision was made between the patient and the surgeon/proceduralist to proceed at this time with the scheduled surgery/procedure as indicated on the consent form. Assessment and Plan Assessment and Plan (1) Abnormal mammogram of left breast: Status: Acute Plan - Dr. Patrice Bonilla MD: 60-year-old female with multiple bilateral previous breast biopsies and a history of DCIS 3 mm in size upper mid left breast with posttreatment radiation treatment and also sentinel node biopsy performed at the time of her lumpectomy. I have personally reviewed her mammographic images. She is interpreted as BI- RADS Category 4. The calcifications involving the left breast on my review appear to be coarse linear and consistent with postoperative changes. Based upon her BI-RADS Category 4 rating I am recommending to her a stereotactic needle core biopsy left breast. She is aware that our sampling will represent a small amount of the tissue area involved. Based upon her history and presentation however I do not believe at this time that a reexcision of the area is indicated. She has had an opportunity to ask and have questions answered. We will schedule and expedite her care. Copy: Dr. Kvng Kerr and Dr. Jet Bonilla M.D., F.A.C.S. Assessment and Plan Assessment and Plan (1) Abnormal mammogram of left breast: Status: Acute (2) Ductal carcinoma in situ (DCIS) of left breast with comedonecrosis: Status: Acute Patient Instructions: The patient's is currently out of town. She presents with her son for this appointment. I have described the results of the [facility] needle core left breast biopsy for her. I did perform a rather aggressive sampling at that time with 12 stereotactic cores with the 8 gauge needle. I did remove significant number of microcalcifications with the specimens with calcifications present in the vast majority of the specimens. It is however of note that it would appear that the diffuse biopsy cavity is involved with these diffuse linear calcifications. A more extensive amount of DCIS likely remains. I have discussed the current pathology with the patient. It is of note that she had a sentinel lymph node biopsy performed the current pathology only shows DCIS. I have concerns however that the patient has had previous radiotherapy. I believe that she would be a candidate for a left total mastectomy. At this time I do not believe that repeat intervention of the left axillary area is indicated. I have expressed some concern to the patient regarding radiated left breast tissue and healing capacity. Great care would need to be taken the time of the procedure to preserve vascularity. We have discussed the technique, benefit, risk, alternatives. She has had an opportunity to ask and have questions answered. At this point I also strongly recommend that she pursue a consultative appointment with oncologist Dr. Jet Montanez. He is assisted her with her previous left breast lumpectomy. We will tentatively schedule for surgical intervention on the left. She has had an opportunity to ask and have questions answered. She is aware that the final pathology may be different but has had noted above a very extensive core biopsy was performed. We will schedule procedure at her discretion. The timing of this will be scheduled subsequent to her consultative appointment with Dr. Jet Montanez. I very much appreciate the kind opportunity of continue to assist with her surgical care. Copy: Dr. Kvng Bonilla M.D., F.A.C.S. 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 There are no clinical changes since date of exam.
[2021-01-07] MEDS: Cefazolin 2 GM in 0.9% Normal Saline 100 ML IV (09:27)
--- NOTE | 2021-01-07 09:31 | EX.PCM.DISCH ---
Discharge Instructions Procedure Breast Surgery Diet Discharge Diet: No restrictions Activity Discharge Activity: May Not Drive (for 2-3 days or while taking narcotic pain meds.) May shower in (days): 1 Lifting Restrictions: 10 pounds for 1 week. Dressing / Incision Call your doctor if your incision/area has: Continuous Slow Oozing and Sudden Increased Bleeding Call your doctor if you observe: Fever of 101 or Higher Suture Line Care: Avoid Pulling/Pushing and Avoid Pinching/Bending Remove Dressing in: 1 day Follow Up Care Test Results: Empty, measure, record drain output. Please make sure you bring this listing to your office appointment. I recommend changing the dressing daily. The incision itself should not require any particular care. The drain site should be cleansed with a Q-tip and peroxide and then dry gauze dressing reapplied with paper tape. Make sure that the drain tubing itself is taped so that we are not completely relying the suture for support. Please contact the office for follow-up. [phone]. Possibly Monday, possibly Monday pending drainage. Discharge Plan Admission Primary Reason for Your Visit: Ductal carcinoma in situ left breast Attending Provider: Patrice Bonilla Primary Care Provider: Jet Swift Discharge Orders/Prescriptions Prescriptions: New hydrocodone-acetaminophen 5-325 mg tablet 1 tab PO Q8H PRN (Reason: pain) 3 Days Qty: 8 RF: 0 Continued lisinopril-hydrochlorothiazide [Zestoretic] 10-12.5 mg tablet 0.5 tab PO DAILY RF: 0 sertraline 100 MG tablet 50 mg PO DAILY RF: 0 levothyroxine 100 MCG tablet 100 mcg PO DAILY RF: 0 hydrochlorothiazide 25 MG tablet 12.5 mg PO QHS RF: 0 calcium carbonate-vitamin D3 [Calcium 600 + D(3)] 600 mg(1,500mg) -400 unit Tablet 1 tab PO DAILY RF: 0 Referrals / Follow Up: Jet Swift MD [Primary Care Provider] - Disposition Disposition (needs filled in before D/C Order can be placed): Home, Self Care
--- NOTE | 2021-01-07 11:03 | OP.PCM_ITS ---
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 60-year-old female was taken to the operating placed on the table underwent general anesthesia. The left arm was carefully wrapped with soft roll and placed at right angles of the table. The left breast chest area was sterilely prepped and draped. The patient had a transverse incision in the upper mid left breast and a curvilinear incision in the outer mid left breast. She has had radiation treatment to the left breast. I arrange my transverse elliptical excision so as to incorporate the previous transverse upper mid breast incision. This did cause the inferior flap to be longer however I did not trust the skin gap superiorly to heal beyond where she had her previous lumpectomy incision. I then made a transverse elliptical incision. Superior flaps were raised first. Because of the patient's history of radiation therapy I left the flaps just slightly thicker. Addiction was performed down to the clavicle. Laterally to the mid axillary line medially to the sternum then I created the inferior flaps. Because the amount of inflammation induration and suspected postoperative changes I took the pectoralis fascia with the specimen using electrocautery. Throughout hemostasis was obtained electrocautery and 3-0 Vicryl suture ligatures were indicated. To allow for better closure I further release the inf erior flaps to take tension off the closure. The wound was irrigated with sterile water. A 15 round JEREMY drain was exited inferior laterally and secured to skin with 3-0 nylon. I then approximated the tissues with interrupted 3-0 Vicryl. I pleaded both the superior and inferior flap to the chest wall with multiple 3-0 Vicryl sutures. Where needed with the stitches of interrupted 3-0 Vicryl placed on emanated interrupted 4-0 Monocryl subdermal stitches. Steri- Strips Telfa bulky dry dressings applied. Sponge and instrument and needle counts were reported the surgery to correct. The periwound area was anesthetized with 0.5% Marcaine a total of 30 cc was used. Specimen left mastectomy with a silk suture placed at the axillary area. Drains 115 round JEREMY drain. Blood loss minimal. She was taken to the recovery area in satisfactory addition without apparent complication. Patrice Bonilla M.D., F.A.C.S. Surgeon: Patrice Bonilla Type of Anesthesia: General and Local Anesthesiologist: Darrius Roche
== END 2021-01-07 15:20 | disposition home or self-care (01) ==
LOC: SDC 07:44 → AC 07:47
PROVIDERS: PCP Family Medicine; Referring Provider Surgery; Visit Provider Surgery
PROC: (CPT 19307; principal; 2021-01-07 09:25)
DX: D05.12 Intraductal carcinoma in situ of left breast (principal); I10 Essential (primary) hypertension; E07.9 Disorder of thyroid, unspecified; Z85.3 Personal history of malignant neoplasm of breast; Z85.828 Personal history of other malignant neoplasm of skin; Z85.850 Personal history of malignant neoplasm of thyroid; Z79.899 Other long term (current) drug therapy
CPT/HCPCS: 19303; 36415; 80053; 85027; 87426; 88307; 88341; 88342; 93005; C9803; J7120; J2405

== ENCOUNTER → 2021-02-01 09:47 | Outpatient (CLI) | payer OTHER, SELFPAY ==
[2021-01-11 15:20] VITALS: BMI 29.0
[2021-02-01 12:33] LABS: Free T3 2.2 pg/mL (2.18-3.98); T4 Free Direct 1.29 ng/dL (0.76-1.46); T4 Total, Thyroxin 11.3 ug/dL (4.8-13.9); Thyroid Stim Hormone (TSH) 0.98 uIU/mL (0.358-3.74)
== END ==
PROVIDERS: PCP Family Medicine; Referring Provider Family Medicine; Visit Provider Family Medicine
DX: E03.9 Hypothyroidism, unspecified (principal)
CPT/HCPCS: 36415; 84436; 84439; 84443; 84481

== ENCOUNTER → 2021-04-23 10:18 | Outpatient (CLI) | payer OTHER, SELFPAY ==
[2021-04-23 13:19] LABS: Anion Gap 4 (5-15); BUN 9 mg/dL (7-18); BUN/Creat Ratio 12.8 RATIO (10-20); Calcium,Total 8.8 mg/dL (8.5-10.1); Chloride 95 mmol/L (98-107); Cholesterol 195 mg/dL (200); EST Glomerular Filtration Rate 89 mL/min (>60); Est Glom Filt Rate - Afr Amer 108 mL/min (>60); Free T3 1.9 pg/mL (2.18-3.98); Glucose 94 mg/dL (74-106); High Density Lipoprotein 76 mg/dL; Potassium 3.9 mmol/L (3.5-5.1); Sodium Level 132 mmol/L (136-145); Thyroid Stim Hormone (TSH) 1.46 uIU/mL (0.358-3.74); Triglycerides 61 mg/dL; Very Low Density Lipoprotein 12 mg/dL (5-40)
== END ==
PROVIDERS: PCP Family Medicine; Referring Provider Family Medicine; Visit Provider Family Medicine
DX: I10 Essential (primary) hypertension (principal); E03.9 Hypothyroidism, unspecified
CPT/HCPCS: 36415; 80048; 80061; 84436; 84443; 84481

== ENCOUNTER → 2021-06-16 15:34 | Outpatient (CLI) | payer OTHER, SELFPAY ==
[2021-06-22 18:14] LABS: HPV APTIMA, High Risk Negative (Negative)
[2021-06-22 18:15] LABS: HPV Reflexed? YES, CHARGE PATIENT
== END ==
PROVIDERS: PCP Family Medicine; Visit Provider Nurse Practitioner Family
DX: Z12.4 Encounter for screening for malignant neoplasm of cervix (principal)
CPT/HCPCS: 87624; 88175; G0145

== ENCOUNTER 2021-06-24 13:45 | Outpatient (CLI) | payer OTHER, SELFPAY ==
[2021-07-01 10:26] LABS: HPV APTIMA, High Risk Negative (Negative)
[2021-07-01 10:27] LABS: HPV Reflexed? YES, CHARGE PATIENT
== END 2021-06-24 23:59 | disposition short-term general hospital (02) ==
LOC: MFPLAB 13:47
PROVIDERS: PCP Family Medicine; Referring Provider Family Medicine; Visit Provider Nurse Practitioner Family
DX: Z01.419 Encounter for gynecological examination (general) (routine) without abnormal findings (principal)
CPT/HCPCS: 87624; 88175; G0145

== ENCOUNTER 2021-09-22 10:15 | Outpatient (CLI) | payer OTHER, SELFPAY ==
[2021-09-30 15:52] LABS: HPV HC, High Risk Negative
== END 2021-09-22 23:59 | disposition home or self-care (01) ==
LOC: LABSPEC 10:17
PROVIDERS: PCP Family Medicine; Visit Provider Family Medicine
DX: Z12.4 Encounter for screening for malignant neoplasm of cervix (principal)
CPT/HCPCS: 87624; 88175; G0145

== ENCOUNTER → 2021-10-29 | Outpatient (CLI) | payer OTHER, SELFPAY ==
[2021-10-29 12:52] LABS: Free T3 2.4 pg/mL (2.18-3.98); Thyroid Stim Hormone (TSH) 2.75 uIU/mL (0.358-3.74)
== END | disposition home or self-care (01) ==
LOC: MFPLAB 11:01
PROVIDERS: PCP Family Medicine; Visit Provider Family Medicine
DX: E03.9 Hypothyroidism, unspecified (principal)
CPT/HCPCS: 36415; 84439; 84443; 84481

== ENCOUNTER → 2021-12-06 | Outpatient (CLI) | payer OTHER, SELFPAY ==
[2021-01-11 15:20] VITALS: BMI 29.0
--- NOTE | 2021-12-06 09:44 | BI_ITS ---
MAMMOGRAPHY - UNILATERAL SCREENING: RIGHT BREAST REASON FOR EXAM: Female, 61 years old. Routine annual screening examination (unilateral). PERTINENT HISTORY: Personal history of breast cancer with left mastectomy on 01/07/2021. TECHNIQUE: Digital unilateral breast annetta (3D mammographic acquisition) in the CC and MLO projections. 2-D mediolateral oblique (MLO) and craniocaudad (CC) views of the right breast was obtained. CAD: Full Field Digital Mammography with Computer Added Detection was performed. COMPARISON: 12/04/2020, 12/02/2019, 11/29/2018, 11/27/2017. FINDINGS: Breast Composition: The breasts are heterogeneously dense, which may obscure small masses. Stable benign-appearing calcifications. Stable partially calcified nodule in the right central retroareolar breast. No other significant abnormalities are identified. There has been no significant change in the right breast since the prior study. BI/SCREEN MAMM (CAD) W/ANNETTA UNI R IMPRESSION: Stable unilateral screening mammogram. Yearly follow-up mammogram recommended. (A) ASSESSMENT CATEGORY: BIRADS Category 2: Benign. A letter regarding these results will be sent to the patient by the facility within 30 days. Approximately 10% of breast cancers are not detected by mammography. A normal mammogram should not delay biopsy of a clinically suspicious abnormality. [id number] Electronically Signed: Ashvin Diaz, at 13:02 EDT ,
== END | disposition home or self-care (01) ==
LOC: OPBI 09:42
PROVIDERS: PCP Family Medicine; Referring Provider Internal Medicine Hematology & Oncology; Visit Provider Internal Medicine Hematology & Oncology
DX: Z12.31 Encounter for screening mammogram for malignant neoplasm of breast (principal)
CPT/HCPCS: 77063; 77067

== ENCOUNTER 2022-03-30 10:13 | Inpatient (IN) | payer OTHER, SELFPAY ==
[2022-03-30] VITALS (10 sets, daily range): BP systolic 84–107; BP diastolic 47–66; PULSE 73–121; RESP 12–18; TEMP 36.6–36.8; O2SAT 97–100; BMI 22.4; BMI 20.9
--- NOTE | 2022-03-30 10:42 | EX.ED.DYSGE1 ---
HPI History of Present Illness Chief Complaint: General Illness Narrative Narrative: 61-year-old female presenting with mild lightheadedness, generalized fatigue, black stools since Monday. She noted the black stools have increased. She felt pretty well yesterday but the fatigue and lightheadedness are worse today. She states she was able to make a doctor's appointment before coming in today but she felt rundown and came in for evaluation. Patient has history of hypothyroidism but had her thyroid levels checked in October and these were normal. Patient also states she has a history of breast cancer and thyroid cancer. She is not currently on any chemotherapy. She has had a colonoscopy in the past which was normal. She has no history of GI bleeding. No history of GERD or gastric ulcers. She is not taking any Pepto-Bismol. She states has been able to eat normally. She denies diarrhea or abdominal pain. No urinary or vaginal complaints. No fevers. PFSH PFSH Medical History History of breast cancer History of skin cancer History of thyroid cancer Hx of chronic bronchitis Hypertension Non-smoker Thyroid disease Wears glasses Home Medications hydrochlorothiazide 25 mg tablet 12.5 mg PO QHS 12/19/16 [History Last Taken Unknown] levothyroxine 100 mcg tablet 100 mcg PO DAILY 12/19/16 [History Last Taken 01/07/21 05:45 100 mcg] sertraline 100 mg tablet 50 mg PO DAILY 12/19/16 [History Last Taken Unknown] lisinopril 10 mg-hydrochlorothiazide 12.5 mg tablet (Zestoretic) 0.5 tab PO DAILY 12/14/20 [History Last Taken Unknown] Allergy/AdvReac Type Severity Reaction Status Date / Time ciprofloxacin [From Cipro] AdvReac Mild GI upset Verified 03/30/22 10:20 Surgical History History of bilateral breast biopsy History of lumpectomy of left breast History of tonsillectomy History of total thyroidectomy S/P fine needle biopsy Social History Smoking Status: Never smoker ROS ROS ED Constitutional Constitutional ED: Denies chills or fever(s) Eyes Eyes: Denies change in vision or diplopia ENT ENT ED: Denies rhinorrhea or sore throat Cardiovascular Cardiovascular: Denies chest pain or palpitations Respiratory/Chest Respiratory/Chest: Denies cough or dyspnea Gastrointestinal Gastrointestinal: Reports melena; Denies abdominal pain, nausea or vomiting Genitourinary Genitourinary ED: Denies dysuria or hematuria Musculoskeletal Musculoskeletal: Denies arthralgias Integumentary Denies abscess Neurologic Neurologic: Denies headache(s) or paresthesias Psychiatric Psychiatric: Denies anxiety or depression EXAM Physical Exam Const Vital Signs: 03/30/22 10:18 03/30/22 10:59 03/30/22 11:00 Temperature 98 F Temperature Source Temporal Pulse Rate 83 89 Pulse Rate [Lying] Pulse Rate [Sitting (for 1 minute prior to obtaining)] Respiratory Rate 18 12 Respiratory Effort Normal Non-Labored Blood Pressure 84/66 L 88/48 L Blood Pressure [Lying] Blood Pressure [Sitting (for 1 minute prior to obtaining)] Blood Pressure Mean 72 61 Blood Pressure Mean [Lying] Blood Pressure Mean [Sitting (for 1 minute prior to obtaining)] Pulse Ox 100 100 Oxygen Delivery Method Room Air Room Air 03/30/22 11:32 Temperature Temperature Source Pulse Rate Pulse Rate [Lying] 73 Pulse Rate [Sitting (for 1 minute prior to obtaining)] 83 Respiratory Rate Respiratory Effort Blood Pressure Blood Pressure [Lying] 90/47 L Blood Pressure [Sitting (for 1 minute prior to obtaining)] 89/56 L Blood Pressure Mean Blood Pressure Mean [Lying] 61 Blood Pressure Mean [Sitting (for 1 minute prior to obtaining)] 67 Pulse Ox Oxygen Delivery Method Positive well nourished General Appearance ED: Negative for pallor HEENT Reports moist mucous membranes Negative for trauma Eyes PERRL and EOMs intact bilaterally General Eye ED: Negative for pale conjunctiva or scleral icterus Chest Wall inspection of chest normal Resp normal respiratory effort and clear to auscultation bilaterally Cardio regular rate and regular rhythm GI normal to inspection, nondistended, normoactive bowel sounds and non-tender Extremity normal to inspection Neuro oriented x3 and CN's II-XII intact bilaterally Sensorium / Orientation: alert Motor Exam: strength 5/5 throughout Psych mental status grossly normal Skin no rashes or lesions noted General Skin Exam: Negative for jaundice or pallor MDM MDM MDM Narrative Medical decision making narrative: Patient presenting with lightheadedness, generalized fatigue and black stools. She is Hemoccult positive. Her blood pressure is a little low at 90/47. She states her systolic blood pressures usually about 110. Patient has no pain. She did get nauseous after IV was placed and she was given Zofran. She states that prior to this she has been eating and drinking well. She does have a history of stomach ulcers or GERD. She not on any blood thinners. CBC was obtained and she has a slight leukocytosis at 13.1. Hemoglobin is low at 8.4 with last comparison to 01/06/2021 at 12.1. Platelets normal at 258. Creatinine at baseline 0.56 however the BUN/creatinine ratio is elevated at 65.8. Patient was given a liter of IV fluids, typed and screened, 40 mg of Protonix given. I do not believe the patient needs any imaging as she has no pain. I spoke with Dr. Michele who was amenable to her being admitted and he plans to do endoscopy. Discussed this with the patient and she is amenable to admission. Patient admitted in stable condition. Impression: 1. Generalized fatigue 2. Lightheadedness 3. Acute blood loss anemia 4. GI bleed Lab Data Attestation: I reviewed the patient's lab results. Labs: Laboratory Results - last 24 hr 03/30/22 03/30/22 03/30/22 10:56 10:56 10:56 WBC 13.1 H RBC 2.66 L Hgb 8.4 L Hct 24.3 L MCV 91.4 MCH 31.6 MCHC 34.6 RDW Std Deviation 42.7 RDW Coeff of Miguel 12.9 Plt Count 258 MPV 9.4 Immature Gran % (Auto) 0.400 Neut % (Auto) 89.4 H Lymph % (Auto) 5.7 L [place] % (Auto) 4.1 Eos % (Auto) 0.2 Baso % (Auto) 0.2 Absolute Neuts (auto) 11.7 H Absolute Lymphs (auto) 0.75 L Nucleated RBC % 0 Sodium 131 L Potassium 3.6 Chloride 97 L Carbon Dioxide 27.0 Anion Gap 7 BUN 37 H Creatinine 0.56 Estim Creat Clear Calc 96.26 Est GFR (MDRD) Af Amer 140 Est GFR (MDRD) Non-Af 116 BUN/Creatinine Ratio 65.8 H Glucose 115 H Calcium 7.8 L Total Bilirubin 0.30 AST 13 L ALT 19 Alkaline Phosphatase 48 Total Protein 5.1 L Albumin 2.8 L Globulin 2.3 Albumin/Globulin Ratio 1.2 Blood Type O POSITIVE Antibody Screen NEGATIVE Discharge Plan Triage Chief Complaint: General Illness Other Complaint: Weakness ED Provider: Selvin Naik Dx/Rx/DC Orders Prescriptions: No Action lisinopril-hydrochlorothiazide [Zestoretic] 10-12.5 mg tablet 0.5 tab PO DAILY sertraline 100 MG tablet 50 mg PO DAILY levothyroxine 100 MCG tablet 100 mcg PO DAILY hydrochlorothiazide 25 MG tablet 12.5 mg PO QHS Primary Care Provider: Jet Swift Referrals: Jet Swift MD [Primary Care Provider] -
[2022-03-30] MEDS: Ondansetron 4 MG/2 ML Vial IV (11:10)
[2022-03-30] MEDS: 0.9% Normal Saline 1,000 ML 1000 ML IV (11:10)
[2022-03-30 11:30] LABS: Absolute Lymphocyte Count 0.75 X10^3/uL (0.83-4.51); Absolute Neutrophil Count 11.7 X10^3/uL (2.0-7.7); Basophil# 0.02 X10^3/uL; Basophil% 0.2 % (0-1); Eosinophil# 0.02 X10^3/uL; Eosinophils% 0.2 % (0-5); Hematocrit 24.3 % (37-47); Hemoglobin 8.4 g/dL (12.0-15.0); Lymphocyte # 0.75 X10^3/ul (0.83-4.51); Lymphocyte % 5.7 % (19-41); Mean Corp Hgb Conc 34.6 g/dL (32-36); Mean Corpuscular Hgb 31.6 pg (27.0-32.0); Mean Corpuscular Volume 91.4 fL (81-99); Mean Platelet Vol. 9.4 fl (6.2-12.0); Monocyte# 0.53 X10^3/uL; Monocyte% 4.1 % (0-10); NRBC Flagged by Analyzer 0 % (0-5); Neutrophil # 11.71 X10^3/uL (2.7-7.7); Neutrophil % 89.4 % (47-70); Platelet Count 258 K/mm3 (150-450); RBC Distribution Width CV 12.9 % (11.6-14.6); RBC Distribution Width SD 42.7 fl (35.1-43.9); Red Blood Count 2.66 M/mm3 (4.2-5.4); White Blood Count 13.1 K/mm3 (4.4-11.0)
[2022-03-30 11:45] LABS: ALB/GLOB Ratio 1.2 RATIO (0.9-2.4); AST(SGOT) 13 U/L (15-37); Alanine Aminotransfer ALT/SGPT 19 U/L (13-56); Albumin, Serum 2.8 g/dL (3.2-5.0); Alkaline Phosphatase 48 U/L (45-117); Anion Gap 7 (5-15); BUN 37 mg/dL (7-18); BUN/Creat Ratio 65.8 RATIO (10-20); Calcium,Total 7.8 mg/dL (8.5-10.1); Chloride 97 mmol/L (98-107); Creatinine, Serum 0.56 mg/dL (0.55-1.02); EST Glomerular Filtration Rate 116 mL/min (>60); Est Glom Filt Rate - Afr Amer 140 mL/min (>60); Estimated Creatinine Clearance 96.26 ml/min; Globulin 2.3 g/dL (2.2-4.2); Glucose 115 mg/dL (74-106); Potassium 3.6 mmol/L (3.5-5.1); Protein, Total 5.1 g/dL (6.4-8.2); Sodium Level 131 mmol/L (136-145)
--- NOTE | 2022-03-30 13:27 | HP.PCM.HOS_ITS ---
HPI - General General Date of Admission: 03/30/22 Date of Service: 03/30/22 Chief Complaint: Weakness HPI Narrative CLEMENTE GRANADOS, is a 61 F w/ hx of breast cancer s/p radiation and mastectomy, thyroid cancer in her 30's, and melanoma s/p resection who presented to [facility] 03/30/22 with 1 week of dark tarry stools and 1 day of weakness and fatigue. She reports being in her usual health until last Monday when she began having dark tarry stools. She continued to have them and over the past several days they have started being mixed in with brown but her fatigue and weakness worsened to the point that she had difficulty functioning today. In the ED she was found to have hgb of 8.6, baseline is normal, and borderline BP with systolic in 90's/low 100's. GI contacted by ED and pt for scope in the AM. Pt currently reports feeling weak, denies and CP or SOB, no f/c, no weight loss or night sweats. Denies anything like this happening in the past. No epigastric pain or hx of heart burn. No bright red blood per rectum. No recent trauma or difficulty swallowing. Denies weight loss. Denies hx of upper endoscopy, last screening colonoscopy 10 years ago unremarkable per pt [facility] Medical History History of breast cancer History of skin cancer History of thyroid cancer Hx of chronic bronchitis Hypertension Non-smoker Thyroid disease Wears glasses Home Medications hydrochlorothiazide 25 mg tablet 12.5 mg PO QHS water pill 12/19/16 [History Last Taken 03/29/22] levothyroxine 100 mcg tablet 100 mcg PO DAILY thyroid 12/19/16 [History Last Taken 03/30/22] sertraline 100 mg tablet 50 mg PO DAILY mood 12/19/16 [History Last Taken 03/30/22] lisinopril 10 mg-hydrochlorothiazide 12.5 mg tablet (Zestoretic) 0.5 tab PO DAILY blood pressure 12/14/20 [History Last Taken 03/30/22] Allergy/AdvReac Type Severity Reaction Status Date / Time ciprofloxacin [From Cipro] AdvReac Mild GI upset Verified 03/30/22 10:20 Family History (Updated 03/30/22 @ 17:[address] Marilee Sparks MD) Mother Heart disease Father Hydrocephalus Surgical History History of bilateral breast biopsy History of lumpectomy of left breast History of tonsillectomy History of total thyroidectomy S/P fine needle biopsy Social History Smoking Status: Never smoker ROS Constitutional Constitutional: Reports weakness; Denies change in weight, chills, fatigue or night sweats Eyes Eyes: Denies change in vision ENT HEENT: Denies dysphagia, headache(s), nasal congestion or sore throat Cardiovascular Cardiovascular: Denies chest pain, edema or rapid heart rate Respiratory/Chest Respiratory/Chest: Denies cough, productive cough or shortness of breath with exertion Gastrointestinal Gastrointestinal: Reports melena; Denies abdominal pain, coffee ground emesis, constipation, diarrhea, nausea or vomiting Genitourinary Genitourinary: Denies urinary frequency Musculoskeletal Musculoskeletal: Denies arthralgias Neurologic Neurologic: Denies confusion, focal weakness, headache(s) or numbness Psychiatric Psychiatric: Reports other Details: anxiety about diagnosis Endocrine Endocrinology: Reports other Details: frequently cold Hematologic/Lymphatic Hematologic/Lymphatic: Denies easy bleeding or easy bruising Allergic/Immunologic Allergic/Immunologic: Reports other Details: No rashes Vital Signs Vital Signs Vital Signs: 03/30/22 10:18 03/30/22 10:59 03/30/22 11:00 Temperature 98 F Temperature Source Temporal Pulse Rate 83 89 Pulse Rate [Lying] Pulse Rate [Sitting (for 1 minute prior to obtaining)] Respiratory Rate 18 12 Respiratory Effort Normal Non-Labored Blood Pressure 84/66 L 88/48 L Blood Pressure [Lying] Blood Pressure [Sitting (for 1 minute prior to obtaining)] Blood Pressure Mean 72 61 Blood Pressure Mean [Lying] Blood Pressure Mean [Sitting (for 1 minute prior to obtaining)] Pulse Ox 100 100 Oxygen Delivery Method Room Air Room Air 03/30/22 11:32 03/30/22 13:08 Temperature 98.3 F Temperature Source Oral Pulse Rate 90 Pulse Rate [Lying] 73 Pulse Rate [Sitting (for 1 minute prior to obtaining)] 83 Respiratory Rate 18 Respiratory Effort Blood Pressure 99/47 L Blood Pressure [Lying] 90/47 L Blood Pressure [Sitting (for 1 minute prior to obtaining)] 89/56 L Blood Pressure Mean 64 Blood Pressure Mean [Lying] 61 Blood Pressure Mean [Sitting (for 1 minute prior to obtaining)] 67 Pulse Ox 100 Oxygen Delivery Method Room Air Weight Weight: 63 kg Body Mass Index (BMI) 22.4 Physical Exam Const alert, oriented x3 and no apparent distress HEENT normocephalic Eyes EOMs intact bilaterally Neck supple Resp normal respiratory effort and clear to auscultation bilaterally Cardio regular rate and regular rhythm GI soft to palpation, non-tender and non-distended Palpation: Negative for guarding Extremity normal to inspection Extremity Narrative: no edema Skin Skin Narrative: no rashes or bleeding appreciated Neuro oriented x3 and moves all extremities Psych Mood & Affect: anxious Results Lab / Micro Data Result Diagrams: 03/30/22 13:45 03/30/22 10:56 Labs: Laboratory Results - last 24 hr 03/30/22 10:56: WBC 13.1 H, RBC 2.66 L, Hgb 8.4 L, Hct 24.3 L, MCV 91.4, MCH 31.6, MCHC 34.6, RDW Std Deviation 42.7, RDW Coeff of Miguel 12.9, Plt Count 258, MPV 9.4, Immature Gran % (Auto) 0.400, Neut % (Auto) 89.4 H, Lymph % (Auto) 5.7 L, [place] % (Auto) 4.1, Eos % (Auto) 0.2, Baso % (Auto) 0.2, Absolute Neuts (auto) 11.7 H, Absolute Lymphs (auto) 0.75 L, Nucleated RBC % 0 03/30/22 10:56: Sodium 131 L, Potassium 3.6, Chloride 97 L, Carbon Dioxide 27.0, Anion Gap 7, BUN 37 H, Creatinine 0.56, Estim Creat Clear Calc 96.26, Est GFR (MDRD) Af Amer 140, Est GFR (MDRD) Non-Af 116, BUN/Creatinine Ratio 65.8 H, Glucose 115 H, Calcium 7.8 L, Total Bilirubin 0.30, AST 13 L, ALT 19, Alkaline Phosphatase 48, Total Protein 5.1 L, Albumin 2.8 L, Globulin 2.3, Albumin/Globulin Ratio 1.2 03/30/22 10:56: Blood Type O POSITIVE, Antibody Screen NEGATIVE Micro: Microbiology 03/30/22 10:56 Stool Stool Occult Blood ([facility]) - Final Occult Blood Positive Assessment & Plan Assessment/Plan (1) GI bleed: PLAN: Plan 1. Acute anemia 2/2 suspected GIB Given dark tarry nature and increase in BUN without change in Cr, concern for upper GIB GI consulted, NPO for possible scope tomorrow IV PPI BID Type and cross Transfuse for hgb <7 H&H ordered iron panel Orthostats in ED w/ pt symptomatic No active bleeding at this time or dark stool in ED BP borderline but improved during exam, gentle hydration Monitor for need for transfusion 2. Hypothyroidism Continue Synthroid TSH ordered 3. Hx of breast cancer s/p mastectomy, supportive care 4. Hyponatremia, chronic Lab workup ordered for AM DVT ppx: given acute GIB pt has SCDs ordered Charges/Coding Visit Charges Inpatient E&M: 99446 Init Hosp L2
[2022-03-30 13:54] LABS: Hemoglobin 8.6 g/dL (12.0-15.0)
[2022-03-30 13:56] LABS: Ferritin 22 ng/mL (8-252); Iron 81 ug/dL (50-170); Iron Binding Capacity,Total 269 ug/dL (250-450)
[2022-03-30] MEDS: 0.9% Normal Saline 1,000 ML 50 ML IV (14:10)
--- NOTE | 2022-03-30 17:02 | PCM.CONS.GEN ---
Assessment & Plan Assessment/Plan (1) GI bleed: PLAN: No you will be good is busy there the differential diagnosis for upper GI bleed in a patient that not on anticoagulation would be malignancy, arteriovenous malformation, telangiectasia, hemangioma all of the upper GI tract. Recommend Protonix 40 mg IV every 12 hours. Recommend EGD to evaluate upper GI tract. She was explained alternatives, risk, benefits including outstanding bleeding, infection, sepsis, perforation, need for surgery . Have an ASA of 3. HPI Consult Data Date of Consult: 03/30/22 HPI Narrative Reason for Consultation: GI bleed HPI Narrative: CLEMENTE GRANADOS, is a 61 F who presents to the ED with GI bleed. She has complaints of with mild lightheadedness, generalized fatigue, black stools since Monday.? She noted the black stools have increased.? She felt pretty well yesterday but the fatigue and lightheadedness are worse today.? She states she was able to make a doctor's appointment before coming in today but she felt rundown and came in for evaluation.? Patient has history of hypothyroidism but had her thyroid levels checked in October and these were normal.? 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 She also has a history of mild depression and mild anxiety and hypertension. Patient also states she has a history of breast cancer and thyroid cancer.? She is not currently on any chemotherapy.? She has had a colonoscopy in the past which was normal.? She has no history of GI bleeding.? No history of GERD or gastric ulcers.? She is not taking any Pepto-Bismol.? She states has been able to eat normally.? She denies diarrhea or abdominal pain.? No urinary or vaginal complaints.? No fevers. [facility] Medical History History of breast cancer History of skin cancer History of thyroid cancer Hx of chronic bronchitis Hypertension Non-smoker Thyroid disease Wears glasses Home Medications hydrochlorothiazide 25 mg tablet 12.5 mg PO QHS water pill 12/19/16 [History Last Taken 03/29/22] levothyroxine 100 mcg tablet 100 mcg PO DAILY thyroid 12/19/16 [History Last Taken 03/30/22] sertraline 100 mg tablet 50 mg PO DAILY mood 12/19/16 [History Last Taken 03/30/22] lisinopril 10 mg-hydrochlorothiazide 12.5 mg tablet (Zestoretic) 0.5 tab PO DAILY blood pressure 12/14/20 [History Last Taken 03/30/22] Allergy/AdvReac Type Severity Reaction Status Date / Time ciprofloxacin [From Cipro] AdvReac Mild GI upset Verified 03/30/22 10:20 Surgical History History of bilateral breast biopsy History of lumpectomy of left breast History of tonsillectomy History of total thyroidectomy S/P fine needle biopsy Social History Smoking Status: Never smoker ROS Review of Systems ROS Unobtainable: other Constitutional Constitutional: Denies fatigue, fever(s), poor appetite, weight gain or weight loss ENT HEENT: Denies mouth lesions Cardiovascular Cardiovascular: Denies abdominal bloating, abdominal edema or abdominal pain Respiratory/Chest Respiratory/Chest: Denies change in mental status, change in phlegm color, chest congestion or chest tightness Gastrointestinal Gastrointestinal: Denies belching, bloating, change in bowel habits, change in stool character, chewing difficulty, coffee ground emesis, constipation, cramping, diarrhea, dyspepsia, dysphagia, early satiety, excessive flatus, fecal incontinence, heartburn, hematemesis, hematochezia, hemorrhoids, loose stools, melena, nausea, odynophagia, rectal bleeding, tenesmus, vomiting or weight changes Genitourinary Genitourinary: Denies abdominal discomfort, burning urination or itching Musculoskeletal Musculoskeletal: Reports as per HPI; Denies muscle weakness or myalgias Integumentary Integumentary: Denies jaundice Neurologic Neurologic: Denies lack of coordination or weakness Psychiatric Psychiatric: Denies confusion, depression, memory loss, mood swings, paranoia or suicidal ideation Endocrine Endocrinology: Denies systems reviewed and no addt'l complaints, except as documented Hematologic/Lymphatic Hematologic/Lymphatic: Denies anemia, easy bleeding, easy bruising or lymphadenopathy Allergic/Immunologic Allergic/Immunologic: Denies systems reviewed and no addt'l complaints, except as documented Physical Exam Const alert General Appearance: cooperative Orientation / Consciousness: oriented to person HEENT hearing grossly normal bilaterally Head and Scalp: normal to inspection Face and Sinus: face symmetric Nose: external nose normal Mouth: oral and palatal mucosa normal Eyes conjunctivae normal General Eye: normal appearance of both eyes Neck full ROM General: normal visual inspection Lymph Lymphatic: no lymphadenopathy noted Chest inspection of chest normal and palpation of chest normal Chest: symmetrical chest wall rise Resp normal respiratory effort Effort and Inspection: able to speak in complete sentences Cardio regular rate GI non-distended Percussion: normal to percussion Rectal Exam: deferred Neuro Speech: speech normal Gait (Neuro): normal gait Lab / Micro Data Result Diagrams: 03/30/22 13:45 03/30/22 10:56 Labs: Laboratory Results - last 24 hr 03/30/22 10:56: WBC 13.1 H, RBC 2.66 L, Hgb 8.4 L, Hct 24.3 L, MCV 91.4, MCH 31.6, MCHC 34.6, RDW Std Deviation 42.7, RDW Coeff of Miguel 12.9, Plt Count 258, MPV 9.4, Immature Gran % (Auto) 0.400, Neut % (Auto) 89.4 H, Lymph % (Auto) 5.7 L, Smyth % (Auto) 4.1, Eos % (Auto) 0.2, Baso % (Auto) 0.2, Absolute Neuts (auto) 11.7 H, Absolute Lymphs (auto) 0.75 L, Nucleated RBC % 0 03/30/22 10:56: Sodium 131 L, Potassium 3.6, Chloride 97 L, Carbon Dioxide 27.0, Anion Gap 7, BUN 37 H, Creatinine 0.56, Estim Creat Clear Calc 96.26, Est GFR (MDRD) Af Amer 140, Est GFR (MDRD) Non-Af 116, BUN/Creatinine Ratio 65.8 H, Glucose 115 H, Calcium 7.8 L, Total Bilirubin 0.30, AST 13 L, ALT 19, Alkaline Phosphatase 48, Total Protein 5.1 L, Albumin 2.8 L, Globulin 2.3, Albumin/Globulin Ratio 1.2 03/30/22 10:56: Blood Type O POSITIVE, Antibody Screen NEGATIVE 03/30/22 10:56: Iron 81, TIBC 269, Ferritin 22 03/30/22 13:25: Crossmatch See Detail 03/30/22 13:45: Hgb 8.6 L Micro: Microbiology 03/30/22 10:56 Stool Stool Occult Blood (CHRIS) - Final Occult Blood Positive Charges/Coding Visit Charges Inpatient E&M: 73619 Init Hosp L2
[2022-03-30 19:05] LABS: Urine Chloride 65 mmol/L (Not Establ.); Urine Sodium 63 mmol/L (Not Establ.)
[2022-03-30 19:22] LABS: Hemoglobin 8.3 g/dL (12.0-15.0)
[2022-03-30 19:36] LABS: Osmolality, Urine 457 mOsm/KG
[2022-03-31] VITALS (12 sets, daily range): BP systolic 101–121; BP diastolic 53–60; PULSE 76–104; RESP 16; TEMP 36.2–37.3; O2SAT 100; BMI 20.8
[2022-03-31 00:57] LABS: Hemoglobin 7.5 g/dL (12.0-15.0)
--- NOTE | 2022-03-31 03:52 | EKG12_ITS ---
Test Reason : pre-op Blood Pressure : / mmHG Vent. Rate : 081 BPM Atrial Rate : 081 BPM P-R Int : 144 ms QRS Dur : 092 ms QT Int : 392 ms P-R-T Axes : 052 057 057 degrees QTc Int : 455 ms Normal sinus rhythm Normal ECG When compared with ECG of 06-JAN-2021 10:24, No significant change was found Confirmed by GLORIA NORTH, RAMON ([id number]), videotape editor FRANK KHAN ([id number]) on 04/01/2022 8:16:06 AM Referred By: Confirmed By:CHACORTA CASTRO MD
[2022-03-31 06:40] LABS: Absolute Lymphocyte Count 0.88 X10^3/uL (0.83-4.51); Absolute Neutrophil Count 3.8 X10^3/uL (2.0-7.7); Basophil# 0.02 X10^3/uL; Basophil% 0.4 % (0-1); Eosinophil# 0.04 X10^3/uL; Eosinophils% 0.8 % (0-5); Hematocrit 22.5 % (37-47); Hemoglobin 7.7 g/dL (12.0-15.0); Lymphocyte # 0.88 X10^3/ul (0.83-4.51); Lymphocyte % 16.8 % (19-41); Mean Corp Hgb Conc 34.2 g/dL (32-36); Mean Corpuscular Hgb 30.8 pg (27.0-32.0); Monocyte# 0.46 X10^3/uL; Monocyte% 8.8 % (0-10); NRBC Flagged by Analyzer 0 % (0-5); Neutrophil # 3.83 X10^3/uL (2.7-7.7); Neutrophil % 72.8 % (47-70); Platelet Count 232 K/mm3 (150-450); RBC Distribution Width SD 42.8 fl (35.1-43.9); White Blood Count 5.3 K/mm3 (4.4-11.0)
[2022-03-31] MEDS: Levothyroxine 100 MCG Tablet PO (06:46)
[2022-03-31 07:28] LABS: ALB/GLOB Ratio 1.2 RATIO (0.9-2.4); AST(SGOT) 13 U/L (15-37); Alanine Aminotransfer ALT/SGPT 19 U/L (13-56); Albumin, Serum 2.9 g/dL (3.2-5.0); Alkaline Phosphatase 47 U/L (45-117); Anion Gap 5 (5-15); BUN 17 mg/dL (7-18); BUN/Creat Ratio 31.2 RATIO (10-20); Calcium,Total 7.9 mg/dL (8.5-10.1); Chloride 104 mmol/L (98-107); Creatinine, Serum 0.54 mg/dL (0.55-1.02); EST Glomerular Filtration Rate 120 mL/min (>60); Est Glom Filt Rate - Afr Amer 145 mL/min (>60); Estimated Creatinine Clearance 99.15 ml/min; Globulin 2.4 g/dL (2.2-4.2); Glucose 102 mg/dL (74-106); Potassium 3.5 mmol/L (3.5-5.1); Protein, Total 5.3 g/dL (6.4-8.2); Sodium Level 137 mmol/L (136-145); Thyroid Stim Hormone (TSH) 4.93 uIU/mL (0.358-3.74)
[2022-03-31 07:29] LABS: Osmolality, Serum 281 mOsm/KG (280-301)
[2022-03-31 07:48] LABS: International Normalized Ratio 1.1; Prothrombin Time (Protime)PT. 14.3 SECONDS (11.7-14.9)
--- NOTE | 2022-03-31 09:34 | PN.HOSP_ITS ---
Subjective Subjective DOS 03/31/22 CC: f/u GIB Pt reports she is feeling slightly less weak today and better overall. Denies BM since yesterday. Urinating well. Denies nausea, no cp or SOB. No other complaints today. No Abd pain Objective Data Objective Data Vital Signs: Vital Signs Temp Pulse Resp BP Pulse Ox O2 Del Method 97.1 F L 104 H 16 121/56 H 100 Room Air 03/31/22 06:00 03/31/22 07:00 03/31/22 06:00 03/31/22 06:00 03/31/22 06:00 03/31/22 08:11 Oxygen Delivery Method Room Air Weight: 58.9 kg Body Mass Index (BMI) 20.8 Intake & Output: Intake and Output for Last 24 Hours 03/29/22 03/30/22 03/31/22 23:59 23:59 23:59 Intake Total 1460 / 1460 955 / 955 Balance 1460 / 1460 955 / 955 Lab / Micro Data Result Diagrams: 03/31/22 05:45 03/31/22 05:45 Labs: Laboratory Results - last 24 hr 03/30/22 10:56: WBC 13.1 H, RBC 2.66 L, Hgb 8.4 L, Hct 24.3 L, MCV 91.4, MCH 31.6, MCHC 34.6, RDW Std Deviation 42.7, RDW Coeff of Miguel 12.9, Plt Count 258, MPV 9.4, Immature Gran % (Auto) 0.400, Neut % (Auto) 89.4 H, Lymph % (Auto) 5.7 L, Hamlin % (Auto) 4.1, Eos % (Auto) 0.2, Baso % (Auto) 0.2, Absolute Neuts (auto) 11.7 H, Absolute Lymphs (auto) 0.75 L, Nucleated RBC % 0 03/30/22 10:56: Sodium 131 L, Potassium 3.6, Chloride 97 L, Carbon Dioxide 27.0, Anion Gap 7, BUN 37 H, Creatinine 0.56, Estim Creat Clear Calc 96.26, Est GFR (MDRD) Af Amer 140, Est GFR (MDRD) Non-Af 116, BUN/Creatinine Ratio 65.8 H, Glucose 115 H, Calcium 7.8 L, Total Bilirubin 0.30, AST 13 L, ALT 19, Alkaline Phosphatase 48, Total Protein 5.1 L, Albumin 2.8 L, Globulin 2.3, Albumin/Globulin Ratio 1.2 03/30/22 10:56: Blood Type O POSITIVE, Antibody Screen NEGATIVE 03/30/22 10:56: Iron 81, TIBC 269, Ferritin 22 03/30/22 13:25: Crossmatch See Detail 03/30/22 13:45: Hgb 8.6 L 03/30/22 18:50: Urine Osmolality 457, Ur Random Sodium 63, Urine Potassium 21.0, Urine Chloride 65 03/30/22 19:15: Hgb 8.3 L 03/31/22 00:50: Hgb 7.5 L 03/31/22 05:45: WBC 5.3, RBC 2.50 L, Hgb 7.7 L, Hct 22.5 L, MCV 90.0, MCH 30.8, MCHC 34.2, RDW Std Deviation 42.8, RDW Coeff of Miguel 13.0, Plt Count 232, MPV 10.0, Immature Gran % (Auto) 0.400, Neut % (Auto) 72.8 H, Lymph % (Auto) 16.8 L, Hamlin % (Auto) 8.8, Eos % (Auto) 0.8, Baso % (Auto) 0.4, Absolute Neuts (auto) 3.8, Absolute Lymphs (auto) 0.88, Nucleated RBC % 0 03/31/22 05:45: PT 14.3, INR 1.1 03/31/22 05:45: Sodium 137, Potassium 3.5, Chloride 104, Carbon Dioxide 28.0, Anion Gap 5, BUN 17, Creatinine 0.54 L, Estim Creat Clear Calc 99.15, Est GFR (MDRD) Af Amer 145, Est GFR (MDRD) Non-Af 120, BUN/Creatinine Ratio 31.2 H, Glucose 102, Calcium 7.9 L, Total Bilirubin 0.30, Direct Bilirubin 0.10, AST 13 L, ALT 19, Alkaline Phosphatase 47, Total Protein 5.3 L, Albumin 2.9 L, Globulin 2.4, Albumin/Globulin Ratio 1.2, TSH 4.93 H 03/31/22 05:45: Serum Osmolality 281 Micro: Microbiology 03/30/22 10:56 Stool Stool Occult Blood (CHRIS) - Final Occult Blood Positive Physical Exam Const alert, oriented x3 and no apparent distress HEENT normocephalic Eyes EOMs intact bilaterally Neck supple Resp normal respiratory effort and clear to auscultation bilaterally Cardio regular rate and regular rhythm GI soft to palpation, non-tender and non-distended Palpation: Negative for guarding Extremity normal to inspection Extremity Narrative: no edema Skin Skin Narrative: no rashes or bleeding appreciated Neuro oriented x3 and moves all extremities Psych Mood & Affect: anxious Assessment & Plan Assessment/Plan (1) GI bleed: PLAN: Plan 1. Acute anemia 2/2 suspected GIB Given dark tarry nature and increase in BUN without change in Cr, concern for upper GIB GI consulted, NPO for scope thi Danish IV PPI BID Type and cross Transfuse for hgb <7, today 7.7 H&H ordered No evidence of iron deficiency, likely primarily acute Orthostats in ED w/ pt symptomatic No active bleeding at this time or dark stool in ED BP improving Monitor for need for transfusion 2. Hypothyroidism Continue Synthroid TSH ordered 3. Hx of breast cancer s/p mastectomy, supportive care 4. Hyponatremia, chronic Improved DVT ppx: given acute GIB pt has SCDs ordered Charges/Coding Visit Charges Inpatient E&M: 60960 Subs Hosp L2
--- NOTE | 2022-03-31 11:45 | CASEMGMT ---
RN ERIN MOLDED [employer] INSPECTOR CM to room to meet with patient for initial transition planning/care coordination assessment. SUZETTE KHAN introduced self and role at [facility]. Pt voices understanding and consents to assessment at this time. Pt resting in bed in no distress at this time. , Juan Luis, and daughter present @ bedside. Pt agreeable to them being present during assessment. Pt is A/O at this time and answers all questions appropriately. Care providers, pharmacy, and demographics verified/updated at this time. PCP: Dr Swift Specialists: none Preferred Pharmacy: [facility] Retail Insurance: [employer]. Pt requesting if she can set up a package plan/payment for her hospitalization. Cody KHAN, notified and states w/contact [facility] Prescription Benefit: yes Living Will/HPOA: Pt has both LW and HPOA, who is her , Juan Luis. LNOK: , Juan Luis Living Arrangements: Lives w/her in one-story home w/one step to enter. Independent. Transportation: Pt states drives self and states no transportation concerns at this time. also drives. DME: States has the following DME: pulse ox, BP machine Pt states no need for further DME at this time. HHC/SNF: No hx of either. No needs identified. Pt wishes to return home and states has no concerns with going home at time of discharge. CM to follow for any further discharge planning/needs. Pt voices no further concerns/needs at this time. Advised pt to ask for CM if any further questions/concerns/needs arise. Voices understanding. PLAN: Home Shari BUTT RN, CM
--- NOTE | 2022-03-31 12:09 | CASEMGMT ---
Addendum entered by Lindy Waldrop 03/31/22 14:44: No response from Quin in [facility] so another call to [facility] and this RN CM spoke to Adrianna. Adrianna states she will figure out what they can do and then will contact pt. Lilliam BRADFORD CM Original Note: Pt is requesting to set up package plan for her stay/procedure. Message left with [facility] in regards to same and that pt would like to speak with them. CM to follow. Lilliam BRADFORD CM
--- NOTE | 2022-03-31 16:00 | EGD_PTH ---
PATIENT: CLEMENTE GRANADOS LOC: [facility] U#:[id number] AGE/SX: 61/F [place]OM[place] [facility] [place]30/[address]: Dr. Marilee Sparks MD : 1960 BED: 1 DIS: 03/31/2022 SPEC #: [id number] RECD: 03/31/22 17:57 STATUS: KLARISSA GARCIA #: [id number] RENATA: 03/31/22 16:[address]: Yariel Michele DEPT: SURGICAL PATHOLOGY RECD BY: Jovanny Hart ENTERED: 04/01/22 07:59 SP TYPE: EGD BIOPSY [facility] DR: MD Dr. Marilee Pa MD Tissues: Gastric mucous membrane Procedures: Surgery Specimen Level IV HEADER OPERATION: EGD ([facility] [place]) PRE-OP DIAGNOSIS: GI bleed TISSUE SUBMITTED: Antrum for H. pylori and path MICROSCOPIC DIAGNOSIS Gastric antrum, biopsy: Chronic gastritis. See comment. AM:wild 04/04/2022 COMMENT The results of immunohistochemistry for Helicobacter pylori will be reported separately ([id number]). MICROSCOPIC DESCRIPTION Slides are reviewed. GROSS DESCRIPTION Received in fixative is one container labeled with the patient's name and designated antrum biopsy. The specimen consists of multiple irregular fragments of light guerra soft tissue that in aggregate measure 1.5 x 0.2 x 0.1 cm. The specimen is totally submitted in one cassette. / SJ:wild 04/01/2022 TC:3 CPT: 44007
--- NOTE | 2022-03-31 16:00 | IMM_PTH ---
PATIENT: CLEMENTE GRANADOS LOC: [facility] U#:[id number] AGE/SX: 61/F ROOM: [facility] RE03/30/[address]: Dr. Marilee Sparks MD : 1960 BED: 1 DIS: 03/31/2022 SPEC #: [id number] RECD: 04/01/22 09:29 STATUS: KLARISSA REHuang #: [id number] RENATA: 03/31/22 16:[address]: Ra Rynehsaan DEPT: IMMUNOHISTOCHEMISTRY RECD BY: Maegan Reed ENTERED: 04/01/22 09:31 SP TYPE: IMMUNO OTHR DR: MD Dr. Marilee Pa MD Tissues: Stomach, NOS Procedures: H Pylori (initial) PHYSICIAN & INSTITUTION [place] [id number] SPECIMEN INFORMATION: Tissue Source: Antrum Clinical Info: GI bleed Specimen Number: [id number] CPT code: 21335 METHODOLOGY: Deparaffinized sections of prefer/formalin-fixed tissue or PAP/DQ stained slides are incubated with monoclonal/polyclonal antibodies/oligonucleotide probes. Localization is made via biotin free immunoperoxidase method. Appropriate controls are performed and reacted as expected. Results on target cell population are indicated in the following table: RESULTS: ANTIBODY / CLONE RESULT H Pylori (polyclonal) negative These tests were developed and their performance characteristics determined by [facility]. They may not have been cleared or approved by the U.S. Food and Drug Administration. The FDA has determined that such clearance or approval is not necessary. The above immunohistochemical/dualISH markers are ordered and reviewed by the Pathologist. INTERPRETATION: Antrum, biopsy: Negative for Helicobacter pylori organisms. AM:wild 04/04/2022
--- NOTE | 2022-03-31 16:50 | OP.EGD_ITS ---
Patient Name: Yolie Osuna Procedure Date: 03/31/2022 4:07 PM Date of : 1960 Age: 61 Procedure: Upper GI endoscopy Indications: Acute post hemorrhagic anemia Providers: Yariel iMchele DO Medicines: Monitored Anesthesia Care Patient Profile: This is a 61 year old female. Refer to note in patient chart for documentation of history and physical. Patient has symptoms of acute abdominal cramping and acute chest pain. Complications: No immediate complications. Procedure: Pre-Anesthesia Assessment: - Prior to the procedure, a History and Physical was performed, and patient medications and allergies were reviewed. The patient is competent. The risks and benefits of the procedure and the sedation options and risks were discussed with the patient. All questions were answered and informed consent was obtained. Patient identification and proposed procedure were verified by the physician in the pre-procedure area. Mental Status Examination: alert and oriented. Airway Examination: normal oropharyngeal airway and neck mobility. Respiratory Examination: clear to auscultation. CV Examination: normal. Prophylactic Antibiotics: The patient does not require prophylactic antibiotics. Prior Anticoagulants: The patient has taken no previous anticoagulant or antiplatelet agents. After reviewing the risks and benefits, the patient was deemed in satisfactory condition to undergo the procedure. The anesthesia plan was to use monitored anesthesia care (MAC). Immediately prior to administration of medications, the patient was re-assessed for adequacy to receive sedatives. The heart rate, respiratory rate, oxygen saturations, blood pressure, adequacy of pulmonary ventilation, and response to care were monitored throughout the procedure. The physical status of the patient was re-assessed after the procedure. After obtaining informed consent, the endoscope was passed under direct vision. Throughout the procedure, the patient's blood pressure, pulse, and oxygen saturations were monitored continuously. The Endoscope was introduced through the mouth, and advanced to the second part of duodenum. The upper GI endoscopy was accomplished without difficulty. The patient tolerated the procedure well. Scope In: 4:39:53 PM Scope Out: 4:43:29 PM Total Procedure Duration Time 0 hours 3 minutes 36 seconds Findings: The examined esophagus was normal. A medium-sized hiatal hernia was present. Two non-bleeding linear gastric ulcers with no stigmata of bleeding were found in the gastric antrum. The largest lesion was 6 mm in largest dimension. Biopsies were taken with a cold forceps for histology. Verification of patient identification for the specimen was done. Estimated blood loss was minimal. The second portion of the duodenum was normal. Impression: - Normal esophagus. - Medium-sized hiatal hernia. - Non-bleeding gastric ulcers with no stigmata of bleeding. Biopsied. - Normal second portion of the duodenum. Recommendation: - Discharge patient to home. - Resume previous diet. - Continue present medications. - Await pathology results. - Repeat upper endoscopy in 3 months to check healing. - Use Protonix (pantoprazole) 40 mg PO BID for 4 weeks. Procedure Code(s): --- Professional --- 77089, Esophagogastroduodenoscopy, flexible, transoral; with biopsy, single or multiple CPT copyright 2017 [employer]. All rights reserved. The codes documented in this report are preliminary and upon cookie padder review may be revised to meet current compliance requirements. Yariel Michele DO 03/31/2022 4:50:20 PM This report has been signed electronically. Number of Addenda: 0 Note Initiated On: 03/31/2022 4:07 PM
--- NOTE | 2022-03-31 16:51 | OP.CCLET_ITS ---
03/31/2022 Jet Swift MD [address] [id number] Re : Upper GI endoscopy procedure for Yolie Osuna Dear Dr. Swift This procedure was performed on March. My impressions and recommendations are as follows: Impressions : - Normal esophagus. - Medium-sized hiatal hernia. - Non-bleeding gastric ulcers with no stigmata of bleeding. Biopsied. - Normal second portion of the duodenum. Recommendations : - Discharge patient to home. - Resume previous diet. - Continue present medications. - Await pathology results. - Repeat upper endoscopy in 3 months to check healing. - Use Protonix (pantoprazole) 40 mg PO BID for 4 weeks. My findings are described in the full procedure note, which is enclosed. If I can be of further assistance, please feel free to contact me at . Sincerely, Yariel Michele, 03/31/2022 4:50:20 PM This report has been signed electronically.
--- NOTE | 2022-03-31 17:08 | DCINST_ITS ---
Discharge Instructions Diet Discharge Diet: No restrictions Follow Up Care Test Results: Test results from this visit will be discussed in further detail at your follow- up appointment, if applicable. Discharge Plan Admission Admit Date/Time: 03/30/22 13:04 Primary Reason for Your Visit: Weakness and blood in stool Attending Provider: Marilee Sparks Primary Care Provider: Jet Swift Consulting Providers: Yariel Michele Instructions Patient Instructions: ED Upper GI Bleeding (Stable) Additional Instructions / Restrictions: 1. You were found to have ulcers with no active bleeding 2. Please use protonix 40mg twice daily for 4 weeks, a script will be sent to your pharmacy on file 3. Please follow up with Dr. Michele, the stomach doctor, in the office upon discharge. Contact information will be provided. Please call upon discharge to schedule an appointment 4. Your blood pressure was low during your hospitalization, please do not take this upon discharge until speaking with your primary care provider. -Please call your primary care provider's office upon discharge to schedule a hospital follow up within 1 week. -For any concerning signs or symptoms please call 911 or proceed to the nearest emergency department Discharge Orders/Prescriptions Prescriptions: New pantoprazole [Protonix] 40 mg tablet,delayed release (DR/EC) 40 mg PO BID 30 Days Qty: 60 0RF Continued sertraline 100 MG tablet 50 mg PO DAILY levothyroxine 100 MCG tablet 100 mcg PO DAILY Held lisinopril-hydrochlorothiazide [Zestoretic] 10-12.5 mg tablet 0.5 tab PO DAILY Hold Instructions: Resume on 04/06/22. Discontinued hydrochlorothiazide 25 MG tablet 12.5 mg PO QHS Referrals / Follow Up: Jet Swift MD [Primary Care Provider] - Within 1 Week Yariel Michele DO [Med Staff - Active Staff] - Within 2 Weeks Disposition Disposition (needs filled in before D/C Order can be placed): Home, Self Care
--- NOTE | 2022-03-31 17:16 | DS.PCM_ITS ---
Providers Date of Admission: 03/30/22 Date of Discharge: 03/31/22 Primary Care Physician: Dr. Jet Swift MD Consultations 03/30/22 14:51 Consult: Gastroenterology Routine Consulting Provider: [facility] Reason for Consult: GIB EMERGENT Consult: No MD Notified: Yes Date Notified: 03/30/22 Time Notified: 14:51 Method of Notification: ED Physician Initiated Reason For Visit: GI BLEED Diagnosis Discharge Diagnosis (1) GI bleed: Status: Acute Code(s): K92.2 - Gastrointestinal hemorrhage, unspecified Plan 1. Acute anemia 2/2 suspected GIB 2. Hypothyroidism 3. Hx of breast cancer Medications at Discharge Home Medications levothyroxine 100 mcg tablet 100 mcg PO DAILY thyroid 12/19/16 sertraline 100 mg tablet 50 mg PO DAILY mood 12/19/16 lisinopril 10 mg-hydrochlorothiazide 12.5 mg tablet (Zestoretic) 0.5 tab PO DAILY blood pressure 12/14/20 pantoprazole 40 mg tablet,delayed release (Protonix) 40 mg PO BID 30 days #60 tabs 03/31/22 Hospital Course Procedures EGD Summary of Care Provided Minutes Spent on Discharge: 31 Hospital Course: CLEMENTE GRANADOS, is a 61 F w/ hx of breast cancer s/p radiation and mastectomy, thyroid cancer in her 30's, and melanoma s/p resection who presented to [facility] 03/30/22 with 1 week of dark tarry stools and 1 day of weakness and fatigue. She reports being in her usual health until last Monday when she began having dark tarry stools. She continued to have them and over the past several days they have started being mixed in with brown but her fatigue and weakness worsened to the point that she had difficulty functioning today. In the ED she was found to have hgb of 8.6, baseline is normal, and borderline BP with systolic in 90's/low 100's. GI contacted by ED and pt for scope in the AM. Hgb remained stable overnight, EGD in showed non bleeding gastric ulcers. Pt placed on 40mg PPI BID with plans to follow up with GI upon d/c. BP medication held d/t low BP during hospital stay. TSH slightly elevated but likely 2/2 acute illness, may need to recheck as an outpatient. Weight / BMI Weight Weight: 58.9 kg Body Mass Index (BMI) 20.8 ABG / Lab / Microbiology Data Result Diagrams: 03/31/22 05:45 03/31/22 05:45 Laboratory: Laboratory Results - last 24 hr 03/30/22 18:50: Urine Osmolality 457, Ur Random Sodium 63, Urine Potassium 21.0, Urine Chloride 65 03/30/22 19:15: Hgb 8.3 L 03/31/22 00:50: Hgb 7.5 L 03/31/22 05:45: WBC 5.3, RBC 2.50 L, Hgb 7.7 L, Hct 22.5 L, MCV 90.0, MCH 30.8, MCHC 34.2, RDW Std Deviation 42.8, RDW Coeff of Miguel 13.0, Plt Count 232, MPV 10.0, Immature Gran % (Auto) 0.400, Neut % (Auto) 72.8 H, Lymph % (Auto) 16.8 L, [place] % (Auto) 8.8, Eos % (Auto) 0.8, Baso % (Auto) 0.4, Absolute Neuts (auto) 3.8, Absolute Lymphs (auto) 0.88, Nucleated RBC % 0 03/31/22 05:45: PT 14.3, INR 1.1 03/31/22 05:45: Sodium 137, Potassium 3.5, Chloride 104, Carbon Dioxide 28.0, Anion Gap 5, BUN 17, Creatinine 0.54 L, Estim Creat Clear Calc 99.15, Est GFR (MDRD) Af Amer 145, Est GFR (MDRD) Non-Af 120, BUN/Creatinine Ratio 31.2 H, Glucose 102, Calcium 7.9 L, Total Bilirubin 0.30, Direct Bilirubin 0.10, AST 13 L, ALT 19, Alkaline Phosphatase 47, Total Protein 5.3 L, Albumin 2.9 L, Globulin 2.4, Albumin/Globulin Ratio 1.2, TSH 4.93 H 03/31/22 05:45: Serum Osmolality 281 Microbiology: Microbiology 03/30/22 10:56 Stool Stool Occult Blood (CHRIS) - Final Occult Blood Positive D/C Instructions Discharge Diet: No restrictions Meaningful Use Info Meaningful Use Diagnoses (Choose all that apply): None applicable Discharge Plan Admission Admit Date/Time: 03/30/22 13:04 Primary Reason for Your Visit: Weakness and blood in stool Attending Provider: Marilee Sparks Primary Care Provider: Jet Swift Consulting Providers: Yariel Michele Instructions Patient Instructions: ED Upper GI Bleeding (Stable) Additional Instructions / Restrictions: 1. You were found to have ulcers with no active bleeding 2. Please use protonix 40mg twice daily for 4 weeks, a script will be sent to your pharmacy on file 3. Please follow up with Dr. Michele, the stomach doctor, in the office upon discharge. Contact information will be provided. Please call upon discharge to schedule an appointment 4. Your blood pressure was low during your hospitalization, please do not take this upon discharge until speaking with your primary care provider. 5. Your TSH was slightly high during this admission but likely is due to acute illness, please have this redrawn in several weeks with your primary care physic parveen -Please call your primary care provider's office upon discharge to schedule a hospital follow up within 1 week. -For any concerning signs or symptoms please call 911 or proceed to the nearest emergency department Discharge Orders/Prescriptions Prescriptions: New pantoprazole [Protonix] 40 mg tablet,delayed release (DR/EC) 40 mg PO BID 30 Days Qty: 60 0RF Continued sertraline 100 MG tablet 50 mg PO DAILY levothyroxine 100 MCG tablet 100 mcg PO DAILY Held lisinopril-hydrochlorothiazide [Zestoretic] 10-12.5 mg tablet 0.5 tab PO DAILY Hold Instructions: Resume on 04/06/22. Discontinued hydrochlorothiazide 25 MG tablet 12.5 mg PO QHS Referrals / Follow Up: Jet Swift MD [Primary Care Provider] - Within 1 Week Yariel Michele DO [Med Staff - Active Staff] - Within 2 Weeks Disposition Disposition (needs filled in before D/C Order can be placed): Home, Self Care Charges/Coding Visit Charges Inpatient E&M: 30862 Disch Hosp
[2022-03-31] MEDS: Sertraline 50 MG Tablet PO (17:23)
== END 2022-03-31 17:58 | disposition home or self-care (01) | DRG 378 ==
LOC: ED 10:59 → PCU 13:17
PROVIDERS: Internal Medicine Gastroenterology; Admitting Provider Internal Medicine; Emergency Provider Student in an Organized Health Care Education/Training Program; PCP Family Medicine; Visit Provider Internal Medicine
PROC: 0DJ08ZZ Inspection of Upper Intestinal Tract, Via Natural or Artificial Opening Endoscopic (ICD-10-PCS; CPT 43235; principal; 2022-03-31 15:55)
DX: K92.1 Melena (principal); D62 Acute posthemorrhagic anemia; E87.1 Hypo-osmolality and hyponatremia; I10 Essential (primary) hypertension; K44.9 Diaphragmatic hernia without obstruction or gangrene; E89.0 Postprocedural hypothyroidism; K29.50 Unspecified chronic gastritis without bleeding; K25.9 Gastric ulcer, unspecified as acute or chronic, without hemorrhage or perforation; R94.6 Abnormal results of thyroid function studies; Z79.899 Other long term (current) drug therapy; Z85.3 Personal history of malignant neoplasm of breast; Z90.12 Acquired absence of left breast and nipple; Z85.820 Personal history of malignant melanoma of skin; Z92.3 Personal history of irradiation; Z92.21 Personal history of antineoplastic chemotherapy; Z28.310 Unvaccinated for COVID-19; Z28.9 Immunization not carried out for unspecified reason
CPT/HCPCS: 36415; 80053; 82248; 82274; 82436; 82728; 83540; 83550; 83930; 83935; 84133; 84300; 84443; 85018; 85025; 85610; 86850; 86900; 86901; 86920; 88305; 88342; 93005; 99285; J7030; A4216; J2405

== ENCOUNTER 2022-04-07 15:12 | Outpatient (CLI) | payer OTHER, SELFPAY ==
[2022-04-07 17:46] LABS: Absolute Lymphocyte Count 1.01 X10^3/uL (0.83-4.51); Absolute Neutrophil Count 3.2 X10^3/uL (2.0-7.7); Basophil# 0.05 X10^3/uL; Eosinophil# 0.14 X10^3/uL; Eosinophils% 2.8 % (0-5); Hematocrit 26.3 % (37-47); Hemoglobin 8.5 g/dL (12.0-15.0); Lymphocyte # 1.01 X10^3/ul (0.83-4.51); Lymphocyte % 20.2 % (19-41); Mean Corp Hgb Conc 32.3 g/dL (32-36); Mean Corpuscular Volume 98.9 fL (81-99); Mean Platelet Vol. 9.3 fl (6.2-12.0); Monocyte# 0.57 X10^3/uL; Monocyte% 11.4 % (0-10); NRBC Flagged by Analyzer 0 % (0-5); Neutrophil # 3.22 X10^3/uL (2.7-7.7); Neutrophil % 64.2 % (47-70); Platelet Count 389 K/mm3 (150-450); RBC Distribution Width CV 16.7 % (11.6-14.6); RBC Distribution Width SD 57.8 fl (35.1-43.9); RET-HE 31.4 pg (30-35); Red Blood Count 2.66 M/mm3 (4.2-5.4); Reticulocyte Count 9.15 % (0.5-1.5)
[2022-04-07 17:50] LABS: POSITIVE COUNT NO; POSITIVE DIFFERENTIAL NO; POSITIVE MORPHOLOGY NO
== END 2022-04-07 23:59 | disposition home or self-care (01) ==
LOC: MFPLAB 15:16
PROVIDERS: PCP Family Medicine; Referring Provider Family Medicine; Visit Provider Family Medicine
DX: D64.9 Anemia, unspecified (principal)
CPT/HCPCS: 36415; 85025; 85045

== ENCOUNTER → 2022-04-29 | Outpatient (CLI) | payer OTHER, SELFPAY ==
[2022-04-29 11:54] LABS: Absolute Lymphocyte Count 0.86 X10^3/uL (0.83-4.51); Absolute Neutrophil Count 2.5 X10^3/uL (2.0-7.7); Basophil# 0.04 X10^3/uL; Eosinophil# 0.11 X10^3/uL; Eosinophils% 2.8 % (0-5); Hematocrit 37.6 % (37-47); Hemoglobin 12.6 g/dL (12.0-15.0); Lymphocyte # 0.86 X10^3/ul (0.83-4.51); Lymphocyte % 21.9 % (19-41); Mean Corp Hgb Conc 33.5 g/dL (32-36); Mean Corpuscular Hgb 32.1 pg (27.0-32.0); Mean Corpuscular Volume 95.7 fL (81-99); Mean Platelet Vol. 9.2 fl (6.2-12.0); Monocyte# 0.37 X10^3/uL; Monocyte% 9.4 % (0-10); NRBC Flagged by Analyzer 0 % (0-5); Neutrophil # 2.54 X10^3/uL (2.7-7.7); Neutrophil % 64.6 % (47-70); Platelet Count 294 K/mm3 (150-450); RBC Distribution Width SD 46.3 fl (35.1-43.9); Red Blood Count 3.93 M/mm3 (4.2-5.4); White Blood Count 3.9 K/mm3 (4.4-11.0)
[2022-04-29 12:46] LABS: Anion Gap 7 (5-15); BUN 12 mg/dL (7-18); BUN/Creat Ratio 16.5 RATIO (10-20); Calcium,Total 8.9 mg/dL (8.5-10.1); Chloride 95 mmol/L (98-107); Cholesterol 215 mg/dL (200); Creatinine, Serum 0.73 mg/dL (0.55-1.02); EST Glomerular Filtration Rate 86 mL/min (>60); Est Glom Filt Rate - Afr Amer 104 mL/min (>60); Free T3 1.7 pg/mL (2.18-3.98); Glucose 95 mg/dL (74-106); High Density Lipoprotein 90 mg/dL; Potassium 3.4 mmol/L (3.5-5.1); Sodium Level 132 mmol/L (136-145); T4 Free Direct 1.18 ng/dL (0.76-1.46); Thyroid Stim Hormone (TSH) 4.51 uIU/mL (0.358-3.74); Triglycerides 31 mg/dL; Very Low Density Lipoprotein 6 mg/dL (5-40)
== END | disposition home or self-care (01) ==
LOC: MFPLAB 09:58
PROVIDERS: PCP Family Medicine; Referring Provider Family Medicine; Visit Provider Family Medicine
DX: Z00.00 Encounter for general adult medical examination without abnormal findings (principal); E03.9 Hypothyroidism, unspecified; D64.9 Anemia, unspecified
CPT/HCPCS: 36415; 80048; 80061; 84439; 84443; 84481; 85025

== ENCOUNTER 2022-06-07 11:17 | Day surgery (SDC) | payer OTHER, SELFPAY ==
--- NOTE | 2022-06-07 11:22 | HP.PCM_ITS ---
History and Physical Date of Admission: 06/07/22 BARBIE GRANADOS, is a 61 F who presents to the office today for hospital followup. Yolie established care with this clinic 04.13.22 after hospitalization at [facility] 03.30.22 - 03.31.22 for GI. [facility] ED presentation 04.09.22 for lightheadedness, fatigue, and black stools. Hx of breast cancer, thyroid cancer, lumpectomy, thyroidectomy. Hemoccult positive. Bp 90/47. Hgb 8.4 with comparison to 01/06/22 at 21.1. IV fluids and Protonix 40mg given. EGD 03.31.22- normal esophagus, non-bleeding gastric ulcers with no stigmata of bleeding. Biopsied- Chronic Gastritis Normal second portion of duodenum. Negative H. Pilori recommended repeat EGD in 3 months, use protonix 40mg BID x4wks Pt reports feeling generally well after hospital visit. Is still taking pantoprazole 40mg BID and taking iron supplement BID. Does feel a little fatigue still but is improving. Some constipation that is relieved with a stool softener. ROS Const Constitutional: Positive for fatigue and weakness ENT ENT: No difficulty swallowing Gastro GI: Positive for change in bowel habits and constipation; No abdominal pain, belching, bloating, change in stool character, coffee ground emesis, cramping, diarrhea, heartburn, difficulty swallowing, feeling full early, excessive flatus, incontinent of stools, Vomiting blood/hematemesis, Blood in stool, loose stools, Black,tarry stools, nausea/dyspepsia, pain with swallowing, vomiting or other Musc Musculoskeletal: No joint pain Skin Skin: No yellowing of the eye or itchy eyes Neuro Neurology: Positive for weakness Psych Psychiatric: No anxiety and No depression Endo Endocrine: Positive for fatigue Aller/Imm Allergy/Immunologic: No itchy eyes Gregorio/Lymp Hematologic/Lymphatic: No easy bleeding or easy bruising Exam Const General: cooperative and comfortable Nutritional Appearance: average body habitus and well nourished HENWV Head: normal to inspection Ears: hearing grossly normal bilaterally Nose: external nose normal Face and sinus: normal facial exam Mouth: oral mucosae normal Throat: posterior oropharynx normal Eyes General: appearance normal, both eyes and all related structures Neck Neck: normal visual inspection Chest Chest palpation & inspection: normal inspection of the chest and normal palpation of entire chest wall Resp Effort & Inspection: normal respiratory effort Auscultation: Bilateral: Clear to Auscultation Cardio Palpation: normal PMI Rate: regular rate Rhythm: regular rhythm GI Inspection: normal to inspection Auscultation: normal bowel sounds Percussion: normal to percussion Palpation: no hepatosplenomegaly Skin General: no rashes or lesions noted Neuro General: patient alert Extrem General: normal to inspection Psych Affect: normal affect Quality Reporting Tobacco Screening ([facility] 138) Smoking Status: Never smoker Assessment and Plan Assessment and Plan (1) GI bleed: ?Status:?Acute ?Plan: GI bleed secondary to NSAID induced injury to the stomach.? Biopsies of the ulcer that was found in the stomach did not reveal any signs of intestinal metaplasia dysplasia or cancer.? It was not NSAID induced ulcer and she had subsequent NSAID induced gastropathy and gastritis was also biopsied and negative for H. pylori.? She is already well on PPI therapy twice a day.? She will maintain that along with iron therapy until repeat her endoscopy in approximately 3 months. (2) History of left mastectomy: ?Status:?Acute I have examined the patient and the H&P has been reviewed. There are no clinical changes since date of exam.
[2022-06-07 12:09] VITALS: BP 136/83; PULSE 83; RESP 18; TEMP 36.4; O2SAT 100; BMI 21.7
[2022-06-07] MEDS: Lactated Ringers 1,000 ML 15 ML IV (12:17)
--- NOTE | 2022-06-07 12:45 | EGD_PTH ---
PATIENT: CLEMENTE GRANADOS LOC: EN U#:[id number] AGE/SX: 61/F ROOM: RE06/07/[address]: Dr. Yariel Michele DO : 1960 BED: DIS: 06/07/2022 SPEC #: [id number] RECD: 06/07/22 14:12 STATUS: KLARISSA REQ #: [id number] RENATA: 06/07/22 12:[address]: Yariel Michele DEPT: SURGICAL PATHOLOGY RECD BY: Marixa Turner ENTERED: 06/08/22 09:00 SP TYPE: EGD BIOPSY [facility] DR: Dr. Jet Swift MD Tissues: A - Gastric mucous membrane B - Gastric mucous membrane Procedures: Surgery Specimen Level IV HEADER OPERATION: EGD with biopsy ([facility]) PRE-OP DIAGNOSIS: GI bleed TISSUE SUBMITTED: A ? Gastric body biopsy, B ? Gastric cardia biopsy MICROSCOPIC DIAGNOSIS A. Gastric body, biopsy: Mild gastritis. See microscopic description and comment. B. Gastric cardia, biopsy: Mild gastritis. See microscopic description. MAZIN:wild 06/09/2022 COMMENT A. The results of immunohistochemistry for Helicobacter pylori will be reported separately ([id number]). MICROSCOPIC DESCRIPTION Slides are reviewed. A & B. The specimen shows fragments of gastric mucosa with chronic inflammatory cell infiltrates in the lamina propria consisting of lymphocytes and plasma cells, consistent with mild chronic gastritis. GROSS DESCRIPTION A - Received in fixative is one container labeled with the patient's name and designated gastric body. The specimen consists of two irregular fragments of light guerra soft tissue that in aggregate measure 0.6 x 0.3 x 0.1 cm. The specimen is totally submitted in one cassette. B - Received in fixative is one container labeled with the patient's name and designated biopsy gastric cardia. The specimen consists of two irregular fragments of light guerra soft tissue that in aggregate measure 0.7 x 0.4 x 0.1 cm. The specimen is totally submitted in one cassette. / MAZIN:wild 06/08/2022 TC:3 CPT: 56450 x2
--- NOTE | 2022-06-07 12:45 | IMM_PTH ---
PATIENT: CLEMENTE GRANADOS LOC: EN U#:[id number] AGE/SX: 61/F ROOM: RE06/07/[address]: Dr. Yariel Michele DO : 1960 BED: DIS: 06/07/2022 SPEC #: [id number] RECD: 06/08/22 13:12 STATUS: KLARISSA REQ #: [id number] RENATA: 06/07/22 12:[address]: Yariel Michele DEPT: IMMUNOHISTOCHEMISTRY RECD BY: Maegan Reed ENTERED: 06/08/22 13:13 SP TYPE: IMMUNO OTHR DR: Dr. Jet Swift MD Tissues: A - Stomach, NOS Procedures: H Pylori (initial) PHYSICIAN & INSTITUTION [place] [address] SPECIMEN INFORMATION: Tissue Source: A ? Gastric body Clinical Info: GI bleed Specimen Number: [id number] CPT code: 23698 METHODOLOGY: Deparaffinized sections of prefer/formalin-fixed tissue or PAP/DQ stained slides are incubated with monoclonal/polyclonal antibodies/oligonucleotide probes. Localization is made via biotin free immunoperoxidase method. Appropriate controls are performed and reacted as expected. Results on target cell population are indicated in the following table: RESULTS: ANTIBODY / CLONE RESULT Block A H Pylori (polyclonal) negative These tests were developed and their performance characteristics determined by [facility]. They may not have been cleared or approved by the U.S. Food and Drug Administration. The FDA has determined that such clearance or approval is not necessary. The above immunohistochemical/dualISH markers are ordered and reviewed by the Pathologist. INTERPRETATION: A. Gastric body, biopsy: Negative for Helicobacter pylori organisms. SJ:wild 06/09/2022
[2022-06-07 13:15] VITALS: BP 112/65; BP 136/63; PULSE 70; RESP 16; TEMP 36; O2SAT 97
--- NOTE | 2022-06-07 13:17 | OP.EGD_ITS ---
Patient Name: Yolie Osuna Procedure Date: 06/07/2022 12:45 PM Date of : 1960 Age: 61 Procedure: Upper GI endoscopy Indications: Chronic peptic ulcer Providers: DO Kb Hayden MD: Jet Swift MD Medicines: Monitored Anesthesia Care Patient Profile: This is a 61 year old female. Refer to note in patient chart for documentation of history and physical. Patient has symptoms. Complications: No immediate complications. Procedure: Pre-Anesthesia Assessment: - Prior to the procedure, a History and Physical was performed, and patient medications and allergies were reviewed. The risks and benefits of the procedure and the sedation options and risks were discussed with the patient. All questions were answered and informed consent was obtained. Patient identification and proposed procedure were verified by the physician in the pre-procedure area. Mental Status Examination: alert and oriented. Airway Examination: normal oropharyngeal airway and neck mobility. Respiratory Examination: clear to auscultation. CV Examination: normal. Prophylactic Antibiotics: The patient does not require prophylactic antibiotics. Prior Anticoagulants: The patient has taken no previous anticoagulant or antiplatelet agents. ASA Grade Assessment: II - A patient with mild systemic disease. After reviewing the risks and benefits, the patient was deemed in satisfactory condition to undergo the procedure. The anesthesia plan was to use monitored anesthesia care (MAC). Immediately prior to administration of medications, the patient was re-assessed for adequacy to receive sedatives. The heart rate, respiratory rate, oxygen saturations, blood pressure, adequacy of pulmonary ventilation, and response to care were monitored throughout the procedure. The physical status of the patient was re-assessed after the procedure. After obtaining informed consent, the endoscope was passed under direct vision. Throughout the procedure, the patient's blood pressure, pulse, and oxygen saturations were monitored continuously. The gastroscope was introduced through the mouth, and advanced to the second part of duodenum. The upper GI endoscopy was accomplished without difficulty. The patient tolerated the procedure well. Scope In: 1:05:03 PM Scope Out: 1:08:57 PM Total Procedure Duration Time 0 hours 3 minutes 54 seconds Findings: The examined esophagus was normal. A small hiatal hernia was present. A few localized, 5 mm non-bleeding erosions were found in the cardia and in the gastric body. There were no stigmata of recent bleeding. Biopsies were taken with a cold forceps for histology. Verification of patient identification for the specimen was done. Estimated blood loss was minimal. The second portion of the duodenum was normal. Impression: - Normal esophagus. - Small hiatal hernia. - Non-bleeding erosive gastropathy. Biopsied. - Normal second portion of the duodenum. Recommendation: - Discharge patient to home. - Resume previous diet. - Continue present medications. - Await pathology results. Procedure Code(s): --- Professional --- 91148, Esophagogastroduodenoscopy, flexible, transoral; with biopsy, single or multiple CPT copyright 2017 [employer]. All rights reserved. The codes documented in this report are preliminary and upon client technologies specialist review may be revised to meet current compliance requirements. Yariel Michele DO 06/07/2022 1:17:07 PM This report has been signed electronically. Number of Addenda: 0 Note Initiated On: 06/07/2022 12:45 PM
--- NOTE | 2022-06-07 13:18 | OP.CCLET_ITS ---
06/07/2022 Jet Swift MD [address] [id number] Re : Upper GI endoscopy procedure for Yolie Osuna Dear Dr. Swift This procedure was performed on Tuesday, June 07, 2022. My impressions and recommendations are as follows: Impressions : - Normal esophagus. - Small hiatal hernia. - Non-bleeding erosive gastropathy. Biopsied. - Normal second portion of the duodenum. Recommendations : - Discharge patient to home. - Resume previous diet. - Continue present medications. - Await pathology results. My findings are described in the full procedure note, which is enclosed. If I can be of further assistance, please feel free to contact me at . Sincerely, Yariel Michele, 06/07/2022 1:17:07 PM This report has been signed electronically.
[2022-06-07 13:20] VITALS: BP 116/67; BP 136/63; PULSE 72; RESP 16; O2SAT 98
[2022-06-07 13:25] VITALS: BP 119/73; BP 136/63; PULSE 74; RESP 16; O2SAT 99
[2022-06-07 13:30] VITALS: BP 126/75; BP 136/63; PULSE 70; RESP 16; TEMP 36.8; O2SAT 100
[2022-06-07 13:43] VITALS: BP 136/63
== END 2022-06-07 13:52 | disposition home or self-care (01) ==
LOC: EN 11:18 → AC 11:19
PROVIDERS: PCP Family Medicine; Referring Provider Family Medicine; Visit Provider Internal Medicine Gastroenterology
PROC: 0DJ08ZZ Inspection of Upper Intestinal Tract, Via Natural or Artificial Opening Endoscopic (ICD-10-PCS; CPT 43235; principal; 2022-06-07 12:40)
DX: K29.50 Unspecified chronic gastritis without bleeding (principal); K44.9 Diaphragmatic hernia without obstruction or gangrene; F41.9 Anxiety disorder, unspecified; I10 Essential (primary) hypertension; E07.9 Disorder of thyroid, unspecified; Z79.899 Other long term (current) drug therapy
CPT/HCPCS: 43239; 88305; 88342; J7120; J2405

== ENCOUNTER → 2022-07-23 | Outpatient (CLI) | payer OTHER, SELFPAY ==
[2022-07-23 10:05] LABS: Free T3 2.2 pg/mL (2.18-3.98); T4 Free Direct 1.27 ng/dL (0.76-1.46)
== END | disposition home or self-care (01) ==
LOC: LAB 09:05
PROVIDERS: PCP Family Medicine; Referring Provider Family Medicine; Visit Provider Family Medicine
DX: E03.9 Hypothyroidism, unspecified (principal)
CPT/HCPCS: 36415; 84439; 84443; 84481

== ENCOUNTER → 2022-10-17 | Outpatient (CLI) | payer OTHER, SELFPAY ==
[2022-10-17 13:02] LABS: ALB/GLOB Ratio 1.2 RATIO (0.9-2.4); AST(SGOT) 24 U/L (15-37); Alanine Aminotransfer ALT/SGPT 36 U/L (13-56); Alkaline Phosphatase 77 U/L (45-117); Anion Gap 6 (5-15); BUN 13 mg/dL (7-18); BUN/Creat Ratio 16.9 RATIO (10-20); Calcium,Total 9.1 mg/dL (8.5-10.1); Chloride 97 mmol/L (98-107); Cholesterol 224 mg/dL (200); Creatinine, Serum 0.77 mg/dL (0.55-1.02); EST Glomerular Filtration Rate 80 mL/min (>60); Est Glom Filt Rate - Afr Amer 97 mL/min (>60); Free T3 2.4 pg/mL (2.18-3.98); Globulin 3.4 g/dL (2.2-4.2); Glucose 96 mg/dL (74-106); High Density Lipoprotein 90 mg/dL; Potassium 3.7 mmol/L (3.5-5.1); Protein, Total 7.4 g/dL (6.4-8.2); Sodium Level 134 mmol/L (136-145); T4 Free Direct 1.21 ng/dL (0.76-1.46); Thyroid Stim Hormone (TSH) 0.59 uIU/mL (0.358-3.74); Triglycerides 39 mg/dL; Very Low Density Lipoprotein 8 mg/dL (5-40)
[2022-10-18 12:37] LABS: Color, Urine Yellow (Yellow); Glucose, Dipstick Normal (Normal); Ketone-Dipstick Negative (Negative); Leukocyte Esterase-Dipstick Negative /ul (Negative); Nitrite-Dipstick Negative (Negative); Occult Blood-Urine Negative /ul (Negative); Protein-Dipstick Negative (Negative); Urine Bilirubin Dipstick Negative (Negative); Urine Clarity Sl. Cloudy (Clear); Urine Urobilinogen Normal (Normal)
== END | disposition home or self-care (01) ==
LOC: MFPLAB 09:38
PROVIDERS: PCP Family Medicine; Visit Provider Family Medicine
DX: I10 Essential (primary) hypertension (principal); E03.9 Hypothyroidism, unspecified; R31.9 Hematuria, unspecified
CPT/HCPCS: 36415; 80053; 80061; 81002; 84439; 84443; 84481

== ENCOUNTER → 2022-12-08 | Outpatient (CLI) | payer OTHER, SELFPAY ==
--- NOTE | 2022-12-08 10:03 | BI_ITS ---
MAMMOGRAPHY - UNILATERAL SCREENING: RIGHT BREAST REASON FOR EXAM: Female, 62 years old. Routine annual screening examination (unilateral). PERTINENT HISTORY: Personal history of breast cancer with left mastectomy on 01/07/2021. TECHNIQUE: Digital unilateral breast annetta (3D mammographic acquisition) in the CC and MLO projections. 2-D mediolateral oblique (MLO) and craniocaudad (CC) views of both breasts were obtained. CAD: Full Field Digital Mammography with Computer Added Detection was performed. COMPARISON: Right breast screening mammogram from 12/06/2021, 12/04/2020. FINDINGS: Breast Composition: The breasts are heterogeneously dense, which may obscure small masses. There are no dominant masses or suspicious calcifications. Stable benign-appearing right breast calcifications. No other significant abnormalities are identified. There has been no significant change since the prior study. BI/SCREEN MAMM (CAD) W/ANNETTA UNI R IMPRESSION: Stable unilateral screening mammogram. Yearly follow-up mammogram recommended. (A) ASSESSMENT CATEGORY: BIRADS Category 2: Benign. A letter regarding these results will be sent to the patient by the facility within 30 days. Approximately 10% of breast cancers are not detected by mammography. A normal mammogram should not delay biopsy of a clinically suspicious abnormality. Electronically Signed: Ashvin Diaz DO at 16:51 EDT ,
== END | disposition home or self-care (01) ==
LOC: OPBI 10:02
PROVIDERS: PCP Family Medicine; Referring Provider Family Medicine; Visit Provider Family Medicine
DX: Z12.31 Encounter for screening mammogram for malignant neoplasm of breast (principal); Z85.3 Personal history of malignant neoplasm of breast; Z90.12 Acquired absence of left breast and nipple
CPT/HCPCS: 77063; 77067

== ENCOUNTER → 2023-04-21 | Outpatient (CLI) | payer OTHER, SELFPAY ==
[2023-04-21 14:25] LABS: ALB/GLOB Ratio 1.1 RATIO (0.9-2.4); AST(SGOT) 17 U/L (15-37); Alanine Aminotransfer ALT/SGPT 24 U/L (13-56); Albumin, Serum 3.8 g/dL (3.2-5.0); Alkaline Phosphatase 78 U/L (45-117); Anion Gap 8 (5-15); BUN 12 mg/dL (7-18); BUN/Creat Ratio 14.7 RATIO (10-20); Calcium,Total 8.9 mg/dL (8.5-10.1); Chloride 92 mmol/L (98-107); Cholesterol 233 mg/dL (200); Creatinine, Serum 0.82 mg/dL (0.55-1.02); EST Glomerular Filtration Rate 75 mL/min (>60); Est Glom Filt Rate - Afr Amer 90 mL/min (>60); Free T3 2.3 pg/mL (2.18-3.98); Globulin 3.4 g/dL (2.2-4.2); Glucose 98 mg/dL (74-106); High Density Lipoprotein 75 mg/dL; Potassium 3.6 mmol/L (3.5-5.1); Protein, Total 7.2 g/dL (6.4-8.2); Sodium Level 130 mmol/L (136-145); T4 Free Direct 1.34 ng/dL (0.76-1.46); Thyroid Stim Hormone (TSH) 0.52 uIU/mL (0.358-3.74); Triglycerides 52 mg/dL; Very Low Density Lipoprotein 10 mg/dL (5-40)
== END | disposition home or self-care (01) ==
LOC: MFPLAB 09:56
PROVIDERS: PCP Family Medicine; Visit Provider Family Medicine
DX: I10 Essential (primary) hypertension (principal); E03.9 Hypothyroidism, unspecified
CPT/HCPCS: 36415; 80053; 80061; 84439; 84443; 84481

== ENCOUNTER → 2023-11-22 | Outpatient (CLI) | payer OTHER, MEDICARE, SELFPAY ==
[2023-11-22 13:18] LABS: ALB/GLOB Ratio 1.3 RATIO (0.9-2.4); AST(SGOT) 23 U/L (15-37); Alanine Aminotransfer ALT/SGPT 34 U/L (13-56); Albumin, Serum 3.8 g/dL (3.2-5.0); Alkaline Phosphatase 74 U/L (45-117); Anion Gap 8 (5-15); BUN 13 mg/dL (7-18); BUN/Creat Ratio 19.6 RATIO (10-20); Calcium,Total 9.1 mg/dL (8.5-10.1); Chloride 96 mmol/L (98-107); Cholesterol 218 mg/dL (200); Creatinine, Serum 0.66 mg/dL (0.55-1.02); EST Glomerular Filtration Rate 95 mL/min (>60); Est Glom Filt Rate - Afr Amer 115 mL/min (>60); Free T3 2.4 pg/mL (2.18-3.98); Glucose 97 mg/dL (74-106); High Density Lipoprotein 82 mg/dL; Potassium 3.8 mmol/L (3.5-5.1); Protein, Total 6.8 g/dL (6.4-8.2); Sodium Level 133 mmol/L (136-145); T4 Free Direct 1.27 ng/dL (0.76-1.46); Thyroid Stim Hormone (TSH) 0.75 uIU/mL (0.358-3.74); Triglycerides 58 mg/dL; Very Low Density Lipoprotein 12 mg/dL (5-40)
== END | disposition home or self-care (01) ==
LOC: MFPLAB 09:37
PROVIDERS: PCP Family Medicine; Visit Provider Family Medicine
DX: E03.9 Hypothyroidism, unspecified (principal); I10 Essential (primary) hypertension
CPT/HCPCS: 36415; 80053; 80061; 84439; 84443; 84481

== ENCOUNTER → 2023-12-11 | Outpatient (CLI) | payer OTHER, MEDICARE, SELFPAY ==
--- NOTE | 2023-12-11 10:56 | BI_ITS ---
MAMMOGRAPHY - UNILATERAL SCREENING: RIGHT BREAST REASON FOR EXAM: Female, 63 years old. Routine annual screening examination (unilateral). PERTINENT HISTORY: Personal history of breast cancer. Prior left mastectomy and right stereotactic breast biopsy. TECHNIQUE: Digital unilateral breast annetta (3D mammographic acquisition) in the CC and MLO projections. 2-D mediolateral oblique (MLO) and craniocaudad (CC) views of both breasts were obtained. CAD: Full Field Digital Mammography with Computer Added Detection was performed. COMPARISON: Comparison is made with prior study dated December 08, 2022 and December 06, 2021. FINDINGS: Breast Composition: The breasts are heterogeneously dense, which may obscure small masses. There are no dominant masses or suspicious calcifications. Stable benign-appearing right breast calcifications. No other significant abnormalities are identified. There has been no significant change since the prior study. BI/SCREEN MAMM (CAD) W/ANNETTA UNI R IMPRESSION: Stable unilateral screening mammogram. Yearly follow-up mammogram recommended. (A) ASSESSMENT CATEGORY: BIRADS Category 2: Benign. A letter regarding these results will be sent to the patient by the facility within 30 days. Approximately 10% of breast cancers are not detected by mammography. A normal mammogram should not delay biopsy of a clinically suspicious abnormality. [id number] Electronically Signed: Indio Emerson MD at 12:51 EDT ,
== END | disposition home or self-care (01) ==
LOC: OPBI 10:48
PROVIDERS: PCP Family Medicine; Referring Provider Family Medicine; Visit Provider Family Medicine
DX: Z12.31 Encounter for screening mammogram for malignant neoplasm of breast (principal)
CPT/HCPCS: 77063; 77067

== ENCOUNTER → 2024-01-29 | Outpatient (CLI) | payer MEDICARE, OTHER, SELFPAY ==
[2024-01-29 17:41] LABS: Color, Urine Yellow (Yellow); Glucose, Dipstick Normal (Normal); Ketone-Dipstick Negative (Negative); Leukocyte Esterase-Dipstick 500 /ul (Negative); Nitrite-Dipstick Negative (Negative); Occult Blood-Urine 150 /ul (Negative); Protein-Dipstick 30 mg/dl (Negative); Urine Bilirubin Dipstick Negative (Negative); Urine Clarity Turbid (Clear); Urine Urobilinogen Normal (Normal); Urine pH 6.5 (5.0 - 8.0)
[2024-01-29 17:59] LABS: Bacteria 0 SEEN /hpf (None Seen); Mucous, Urine 0 SEEN /hpf (<or=2+); Red Blood Cells-Urine 0 SEEN /hpf (0-5); Squamous Epithelial Cells - UA 0 SEEN /hpf (5-10); White Blood Cells >100 SEEN /hpf (0-5)
== END | disposition home or self-care (01) ==
PROVIDERS: PCP Family Medicine; Referring Provider Physician Assistant; Visit Provider Physician Assistant
DX: R30.0 Dysuria (principal)
CPT/HCPCS: 81001; 87086; 87088; 87186

== ENCOUNTER → 2024-05-22 | Outpatient (CLI) | payer MEDICARE, OTHER, SELFPAY | END | disposition home or self-care (01) | LOC: MFPLAB 10:39 | PROVIDERS: PCP Family Medicine; Referring Provider Family Medicine; Visit Provider Family Medicine | DX: I10 Essential (primary) hypertension (principal); E03.9 Hypothyroidism, unspecified ==

== ENCOUNTER → 2024-05-28 | Outpatient (CLI) | payer MEDICARE, OTHER, SELFPAY ==
[2024-05-28 10:50] LABS: Anion Gap 9 (5-15); BUN 12 mg/dL (7-18); BUN/Creat Ratio 15.5 RATIO (10-20); Calcium,Total 9.2 mg/dL (8.5-10.1); Chloride 96 mmol/L (98-107); Cholesterol 263 mg/dL (200); Creatinine, Serum 0.77 mg/dL (0.55-1.02); EST Glomerular Filtration Rate 80 mL/min (>60); Est Glom Filt Rate - Afr Amer 96 mL/min (>60); Free T3 1.9 pg/mL (2.18-3.98); Glucose 98 mg/dL (74-106); High Density Lipoprotein 91 mg/dL; Potassium 3.2 mmol/L (3.5-5.1); Sodium Level 132 mmol/L (136-145); T4 Free Direct 1.37 ng/dL (0.76-1.46); Thyroid Stim Hormone (TSH) 0.982 uIU/mL (0.358-3.740); Triglycerides 46 mg/dL; Very Low Density Lipoprotein 9 mg/dL (5-40)
== END | disposition home or self-care (01) ==
LOC: MFPLAB 08:55
PROVIDERS: PCP Family Medicine; Visit Provider Family Medicine
DX: I10 Essential (primary) hypertension (principal); E03.9 Hypothyroidism, unspecified
CPT/HCPCS: 80048; 80061; 84439; 84443; 84481

== ENCOUNTER → 2024-09-07 | Outpatient (CLI) | payer MEDICARE, OTHER, SELFPAY ==
[2024-09-07 11:43] LABS: Cholesterol 190 mg/dL (<=200); Free T3 2.5 pg/mL (2.18-3.98); High Density Lipoprotein 77 mg/dL; Low Density Lipoprotein Calc. 102 mg/dL; Thyroid Stim Hormone (TSH) 0.046 uIU/mL (0.300-4.200); Triglycerides 56 mg/dL; Very Low Density Lipoprotein 11 mg/dL (5-40); cholesterol:hdl ratio screen 2.47
[2024-09-07 11:52] LABS: ALB/GLOB Ratio 1.8 RATIO (0.9-2.4); AST(SGOT) 25 U/L (<=31); Alanine Aminotransfer ALT/SGPT 28 U/L (<=34); Albumin, Serum 4.3 g/dL (3.4-4.8); Alkaline Phosphatase 77 U/L (35-104); Anion Gap 11 (5-15); BUN 15 mg/dL (4-19); BUN/Creat Ratio 23.7 RATIO (10-20); Calcium,Total 9.2 mg/dL (7.6-11.0); Carbon Dioxide 28.1 mmol/L (21.0-32.0); Chloride 95 mmol/L (98-108); Creatinine, Serum 0.64 mg/dL (0.70-1.20); EST Glomerular Filtration Rate 98 (>60); Globulin 2.5 g/dL (2.2-4.2); Glucose 98 mg/dL (70-99); Potassium 4.5 mmol/L (3.3-5.1); Protein, Total 6.7 g/dL (5.9-8.4); Sodium Level 134 mmol/L (133-145); Total Bilirubin 0.46 mg/dL (0.00-1.30)
== END | disposition home or self-care (01) ==
LOC: LAB 09:47
PROVIDERS: PCP Family Medicine; Referring Provider Family Medicine; Visit Provider Family Medicine
DX: E03.9 Hypothyroidism, unspecified (principal); E78.00 Pure hypercholesterolemia, unspecified
CPT/HCPCS: 36415; 80053; 80061; 84439; 84443; 84481

== ENCOUNTER → 2024-11-20 | Outpatient (CLI) | payer MEDICARE, OTHER, SELFPAY ==
[2024-11-20 13:12] LABS: ALB/GLOB Ratio 1.7 RATIO (0.9-2.4); AST(SGOT) 44 U/L (<=31); Alanine Aminotransfer ALT/SGPT 70 U/L (<=34); Albumin, Serum 4.4 g/dL (3.4-4.8); Alkaline Phosphatase 121 U/L (35-104); Anion Gap 16 (5-15); BUN 8 mg/dL (4-19); BUN/Creat Ratio 12.9 RATIO (10-20); Calcium,Total 9.5 mg/dL (7.6-11.0); Carbon Dioxide 22.4 mmol/L (21.0-32.0); Chloride 93 mmol/L (98-108); Cholesterol 200 mg/dL (<=200); Creatinine, Serum 0.64 mg/dL (0.70-1.20); EST Glomerular Filtration Rate 98 (>60); Free T3 2.4 pg/mL (2.18-3.98); Globulin 2.7 g/dL (2.2-4.2); Glucose 97 mg/dL (70-99); High Density Lipoprotein 69 mg/dL; Low Density Lipoprotein Calc. 119 mg/dL; Potassium 3.9 mmol/L (3.3-5.1); Protein, Total 7.1 g/dL (5.9-8.4); Sodium Level 131 mmol/L (133-145); Thyroid Stim Hormone (TSH) 0.542 uIU/mL (0.300-4.200); Total Bilirubin 0.36 mg/dL (0.00-1.30); Triglycerides 60 mg/dL; Very Low Density Lipoprotein 12 mg/dL (5-40)
--- OUTSIDE RECORDS SUMMARY | 2024-11-20 19:49 | XMS RPT_ITS | CCD ---
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 Jet Swift Primary Care Provider Dr. Selvin Naik Emergency Provider [phone] Marilee Sparks Admit Provider Dr. Marilee Sparks Attending Provider Dr. Marilee Sparks Other Provider Dr. Yariel Michele Attending Provider [phone] Kiara Vaughan Attending Provider Dr. Marilee Sparks Referring Provider Dr. Jet Swift Referring Provider Dr. Jet Swift Primary Care Provider Dr. Selvin Naik Emergency Provider [phone] Marilee Sparks Admit Provider Dr. Marilee Sparks Attending Provider Dr. Marilee Sparks Other Provider Dr. Marilee Sparks Referring Provider Dr. Yariel Michele Attending Provider [phone] Kiara Vaughan Attending Provider Dr. Jet Swift Referring Provider Dr. Yariel Michele Other Provider Dr. Jet Swift Primary Care Provider Dr. Yariel Michele Attending Provider [phone] Jean NORTH, Meenakshi Denney Primary Care Provider Maximus NORTH MD, Daesung Unavailable MEENAKSHI FORREST Primary Care Unavailable Jeniffer, Dr. Chaudhary Primary Care Provider [phone] Dr. Jet Swift Referring Provider Friend, Dr. Saldivar Attending Provider Jet Swift Primary Care Unavailable Swift, Jet Referring Unavailable Swift, Jet Attending Unavailable Swift, Jet Attending Unavailable Swift, Jet Primary Care Unavailable Swift, Jet Referring Unavailable Swift, Jet Attending Unavailable Swift, Jet Primary Care Unavailable Swift, Jet Referring Unavailable Darien Irvin Attending Unavailable Swift, Jet Primary Care Unavailable Swift, Jet Primary Care Unavailable Darien Irvin Referring Unavailable Darien Irvin Attending Unavailable Swift, Jet Primary Care Unavailable Swift, Jet Referring Unavailable Swift, Jet Attending Unavailable Swift, Jet Primary Care Unavailable Swift, Jet Attending Unavailable Swift , Dr. Chaudhary Primary Care Provider Jeniffer NORTH, Dr. Chaudhary Attending Provider Jeniffer NORTH, Dr. Chaudhary Referring Provider Allergies Allergy Classification Reported Allergen(s) Allergy Type Date of Onset Reaction(s) Facility (11 sources) Ciprofloxacin Drug Allergy 02-03-2021 GI upset [facility] (1 source) Ciprofloxacin Drug Allergy 01-29-2024 [facility] Repository Medications Current Medications Medication Drug Class(es) Dates Sig (Normalized) Sig (Original) calcium carbonate 1500 mg / cholecalciferol 0.01 mg oral tablet (3 sources) Vitamin D Start: 01-01-2021 take 1 tablet by mouth once daily Calcium Carbonate-Vitam in D3 (Calcium 600 + D(3)) 600 mg(1,500mg) -400 unit Tablet Active 1 TABLET PO DAILY January 01, 2021 12:52pm cephalexin 500 mg oral capsule (2 sources) Cephalosporin Antibacterial Start: 09-29-2022 End: 10-06-2022 take 1 capsule by mouth three times daily cephALEXin (KEFLEX) 500 mg capsule Indications: Dysuria Take 1 capsule by mouth three times daily for 7 days. 21 capsule 0 09/29/2022 10/06/2022 Active Comment on above: Take 1 capsule by mo uth three times daily for 7 days. gabapentin 100 mg oral capsule (3 sources) Anti-epileptic Agent Start: 01-20-2021 take 1 capsule by mouth twice daily Gabapentin (Neurontin) 100 mg capsule Active 100 MG PO TWICE A DAY January 20, 2021 1:07pm hydroCHLOROthiazide 12.5 mg / lisinopril 10 mg oral tablet (20 sources) Thiazide Diuretic, Angiotensin Converting Enzyme Inhibitor Start: 12-28-2016 take 10-12.5 mg by mouth once lisinopril-hydr ochlorothiazide (PRINZIDE,ZESTO RETIC) 10-12.5 mg per tablet Take 1 tablet by mouth once daily. 0 12/28/2016 Active Start: 12-19-2016 End: 12-14-2020 take 10-12.5 mg by mouth once daily Lisinopril-Hydrochlorothiazide (Zestoret ic) 10-12.5 mg tablet Active 0.5 {tbl} PO DAILY December 14, 2020 8:03am On Hold: Resume on 04/06/22. Comment on above: Take 1 tablet by jeanie th once daily. levothyroxine sodium 0.112 mg oral tablet (13 sources) l-Thyroxine Start: take 1 tablet by mouth once daily Levothyroxine 112 mcg tablet Active 112 ug PO DAILY June 03, 2022 1:00am Start: 11-07-2016 take 1 tablet by jeanie th once daily levothyroxine (SYNTHROID) 100 mcg tablet Take 100 mcg by mouth once daily. 0 11/07/2016 Active Comment on above: Take 100 mcg by mout h once daily. Multivitamin preparation (4 sources) Start: 06-03-2022 take 1 tablet by mouth once daily Multivitamin Active 1 TABLET PO DAILY June 03, 2022 1:00am Start: 06-03-2022 take 1 tablet by jeanie th once daily Multivitamin Active 1 TABLET PO DAILY June 03, 2022 12:00am Multivitamin Tablet (1 source) Start: 06-03-2022 Multivitamin Tablet Active 1 {tbl} PO DAILY June 03, 2022 1:00am nortriptyline 25 mg oral capsule (5 sources) Tricyclic Antidepressant Start: 06-03-2022 take 1 capsule by mouth at bedtime Nortriptyline 25 mg capsule Active 25 mg PO AT BEDTIME June 03, 2022 1:00am pantoprazole 40 mg delayed release oral tablet (2 sources) Proton Pump Inhibitor Start: 03-31-2022 take 1 tablet by mouth twice daily Pantoprazole (Protonix) 40 mg tablet,delayed release (DR/EC) Active 40 MG PO TWICE A DAY 60 March 30, 2022 11:00pm sertraline 100 mg oral tablet (13 sources) Serotonin Reuptake Inhibitor Start: 12-19-2016 Sertraline 100 MG tablet Active 50 mg PO DAILY December 19, 2016 12:00am Start: 12-19-2016 take 50 mg by mouth once daily Sertraline Active 50 MG PO DAILY December 19, 2016 12:00am Start: 10-07-2009 take 1 tablet by jeanie th once daily sertraline hcl(ZOLOFT 100 MG TAB) Take 1/2 tablet by mouth once daily. 0 10/07/2009 Active Comment on above: Take 1/2 tablet by m out once daily. Completed/Discontinued Medications Medication Drug Class(es) Dates Sig (Normalized) Sig (Original) acetaminophen 325 mg / HYDROcodone bitartrate 5 mg oral tablet (11 sources) Opioid Agonist Start: 01-07-2021 End: 02-03-2021 Hydrocodone-Acetami nophen 5-325 mg tablet Discontinued 1 {tbl} PO Q8H as needed for pain 8 January 07, 2021 February 03, 2021 1:00pm Start: 01-07-2021 End: 02-03-2021 take 1 tablet by mouth every eight hours Hydrocodone-Acetaminophen Discontinued 1 TABLET PO Q8H 8 January 07, 2021 February 03, 2021 1:00pm [id number] 200 actuat albuterol 0.09 mg/actuat metered dose inhaler (2 sources) beta2-Adrenergic Agonist Start: 01-06-2017 take 2 puff(s) by inhalation every four hours as needed PROAIR HFA 90 mcg/actuation inhaler Inhale 2 Puffs as instructed every 4 hours as needed. 0 01/06/2017 Active Comment on above: Inhale 2 Puffs as in structed every 4 hours as needed. hydroCHLOROthiazide 25 mg oral tablet (13 sources) Thiazide Diuretic Start: 12-19-2016 End: 03-31-2022 Hydrochlorothiazide 25 MG tablet Discontinued 12.5 mg PO AT BEDTIME December 19, 2016 12:00am March 31, 2022 5:11pm Start: 12-19-2016 End: 03-31-2022 take 12.5 mg by mouth at bedtime Hydrochlorothiazide Discontinued 12.5 MG PO AT BEDTIME December 19, 2016 12:00am March 31, 2022 5:11pm take 0.5 tablet by m outh once daily hydroCHLOROthiazide (HYDRODIURIL, ESIDRIX) 25 mg tablet Take 1/2 tablet by mouth once daily. 0 Active Comment on above: Take 1/2 tablet by m outh once daily. naproxen sodium 220 mg oral tablet (2 sources) Nonsteroidal Anti-inflammatory Drug naproxen sodium (ALEVE) 220 mg tablet Take 220 mg by mouth as needed. 0 Active Comment on above: Take 220 mg by mouth as needed. nitrofurantoin, macrocrystals 25 mg / nitrofurantoin, monohydrate 75 mg oral capsule (1 source) Nitrofuran Antibacterial Start: End: take 1 capsule by mouth every twelve hours at mealtime Nitrofurantoin Monohyd/M-Cryst (Macrobid) 100 mg capsule Discontinued 100 mg PO Q12H 10 January 29, 2024 12:00am February 02, 2024 12:00am February 03, 2024 12:09am must administer with a meal/food ondansetron 4 mg disintegrating oral tablet (11 sources) Serotonin-3 Receptor Antagonist Start: End: take 1 tablet by mouth every eight hours as needed for nausea Ondansetron 4 MG tablet Discontinued 4 mg PO EVERY 8 HOURS NEEDED as needed for Nausea September 08, 2017 12:00am December 14, 2020 8:03am phenazopyridine hydrochloride 200 mg oral tablet (2 sources) Start: take 1 tablet by mouth three times daily as needed phenazopyridine (PYRIDIUM) 200 mg tablet Indications: Dysuria Take 1 tablet by mouth three times daily as needed. 6 tablet 0 09/29/2022 Active Comment on above: Take 1 tablet by jeanie three times daily as needed. 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 Jet Montanez.I anticipate further surgical follow-up in 3 weeks.Progress prognosis felt to be goodRobert Hay Bonilla M.D., F.A.C.S. Essential hypertension (1 source) Essential (primary) hypertension; Translations: [Essential (primary) hypertension] Onset: 5 Chronic Gastroduodenal ulcer (except hemorrhage) (6 sources) Gastric ulcer; Translations: [Gastric ulcer, unspecified as acute or chronic, without hemorrhage or perforation] 07-12-2022 Chronic Gastrointestinal hemorrhage (20 sources) Gastrointestinal hemorrhage; Translations: [Gastrointestinal hemorrhage, unspecified] Episodic Other disorders of stomach and duodenum (4 sources) Erosive gastropathy; Translations: [Other diseases of stomach and duodenum] 07-12-2022 Episodic Other disorders of stomach and duodenum (2 sources) Other diseases of stomach and duodenum; Translations: [Other specified disorders of stomach and duodenum] 07-12-2022 Episodic Thyroid disorders (1 source) Hypothyroidism, unspecified; Translations: [Hypothyroidism, unspecified] Onset: 5 Chronic Past or Other Problems Problem Classification Problem Date Documented Da te Episodic/Chronic Genitourinary symptoms and ill-defined conditions (2 sources) Dysuria; Translations: [Dysuria] Onset: 03-01-2024 Episodic Nonmalignant breast conditions (2 sources) Atypical lobular hyperplasia of breast; Translations: [Unspecified benign mammary dysplasia of unspecified breast] Onset: 08-21-2009 08-21-2009 Episodic Other screening for suspected conditions (not mental disorders or infectious disease) (12 sources) Mammography abnormal; Translations: [Other abnormal and inconclusive findings on diagnostic imaging of breast] Onset: 01-01-2024 12-14-2020 Episodic Residual codes; unclassified (11 sources) History of left mastectomy; Translations: [Acquired absence of left breast and nipple] Onset: 06-19-2020 02-03-2021 Episodic Residual codes; unclassified (5 sources) Acquired absence of left breast and nipple; Translations: [Acquired absence of breast and nipple] Onset: 06-19-2020 Episodic Results Test Name Value Interpretation Reference Range Facility Anion gap in Serum or Plasma Ordered By: Jet Swift on 09-07-2024 Anion gap [Moles/Vol] 11 mmol/L 5-15 [facility] BUN/creatinine ratioOrdered By: Jet Swift on 09-07-2024 Urea nitrogen/Creatinine [Mass ratio] 23.7 mg/mg High 10-20 [facility] Bilirubin, totalOrdered By: Jet Swift on 09-07-2024 Bilirubin [Mass/Vol] 0.46 mg/dL 0.00-1.[address] [facility] Calculated very low density lipoprotein (VLDL) cholesterol measurementOrdered By: Jet Swift on 09-07-2024 VLDL Cholesterol 11 mg/dL 5-40 [facility] Carbon dioxide, total [Moles /volume] in Central venous bloodOrdered By: Jet Swift on 09-07-2024 CO2 [Moles/Vol] 28.1 mmol/L 21.0-32.0 [facility] Chloride assayOrdered By: Guy Swift on 09-07-2024 Chloride [Moles/Vol] 95 mmol/L Low 98-[address] [facility] Comprehensive Metabolic Prof ilon 09-07-2024 Albumin [Mass/Vol] 4.3 g/dL Normal 3.4-4.8 [facility] Comment on above: Order Comment: Order Date: 08/06/24 Order Info: [id number] - CMP Order Info: [id number] - LIPID Order Info: 3051-0 - T3F Order Info: 3016-3 - TSH Order Info: 3024-7 - T4F Performed By: #### L 500.4050, L500.4100, L501.9520, L506.0400, L501.86081 #### [facility] [address] [place], [place], [address] Albumin/Globulin [Mass ratio] 1.8 {ratio} Normal 0.9-2.4 [facility] Comment on above: Order Comment: Order Date: 08/06/24 Order Info: 86-1 - CMP Order Info: [id number] - LIPID Order Info: 3051-0 - T3F Order Info: 3016-3 - TSH Order Info: 3024-7 - T4F Performed By: #### L 500.4050, L500.4100, L501.9520, L506.0400, L501.65139 #### [facility] [address] [place], [address] ALK PHOS 77 U/L Normal 35-104 [facility] Comment on above: Order Comment: Order Date: 08/06/24 Order Info: 785-1 - CMP Order Info: [id number] - LIPID Order Info: 3051-0 - T3F Order Info: 3013 - TSH Order Info: 30247 - T4F Performed By: #### L 500.4050, L500.4100, L501.9520, L506.0400, L501.32601 #### [facility] [address] [place], [place], [address] ALT [Catalytic activity/Vol] 28 U/L Normal <=34 [facility] Comment on above: Order Comment: Order Date: 08/06/24 Order Info: 785- - CMP Order Info: - LIPID Order Info: 3051-0 - T3F Order Info: 3016-3 - TSH Order Info: 3024-7 - T4F Performed By: #### L 500.4050, L500.4100, L501.9520, L506.0400, L501.76224 #### [facility] [address] [place], [address] AST [Catalytic activity/Vol] 25 U/L Normal <=31 [facility] Comment on above: Order Comment: Order Date: 08/06/24 Order Info: 86-1 - CMP Order Info: [id number] - LIPID Order Info: 3051-0 - T3F Order Info: 3016-3 - TSH Order Info: 3024-7 - T4F Performed By: #### L 500.4050, L500.4100, L501.9520, L506.0400, L501.41657 #### [facility] [address] [place], [address] Bilirubin [Mass/Vol] 0.46 mg/dL Normal 0.00-1.[address] [facility] Comment on above: Order Comment: Order Date: 08/06/24 Order Info: 0786-1 - CMP Order Info: [id number] - LIPID Order Info: 3051-0 - T3F Order Info: 3016-3 - TSH Order Info: 3024-7 - T4F Performed By: #### L 500.4050, L500.4100, L501.9520, L506.0400, L501.84134 #### [facility] [address] [place], [address] BUN/CRE 23.7 RATIO High 10-20 [facility] Comment on above: Order Comment: Order Date: 08/06/24 Order Info: 785-1 - CMP Order Info: [id number] - LIPID Order Info: 3051-0 - T3F Order Info: 3016-3 - TSH Order Info: 3024-7 - T4F Performed By: #### L 500.4050, L500.4100, L501.9520, L506.0400, L501.97881 #### [facility] [address] [place], [address] Calcium [Mass/Vol] 9.2 mg/dL Normal 7.6-11.0 [facility] Comment on above: Order Comment: Order Date: 08/06/24 Order Info: 0786-1 - CMP Order Info: [id number] - LIPID Order Info: 3051-0 - T3F Order Info: 3016-3 - TSH Order Info: 3024-7 - T4F Performed By: #### L 500.4050, L500.4100, L501.9520, L506.0400, L501.58758 #### [facility] [address] [place], [address] Chloride [Moles/Vol] 95 mmol/L Low 98-[address] [facility] Comment on above: Order Comment: Order Date: 08/06/24 Order Info: 86-1 - CMP Order Info: [id number] - LIPID Order Info: 3051-0 - T3F Order Info: 3016-3 - TSH Order Info: 3024-7 - T4F Performed By: #### L 500.4050, L500.4100, L501.9520, L506.0400, L501.69241 #### [facility] [address] [place], [address] CO2 [Moles/Vol] 28.1 mmol/L Normal 21.0-32.0 [facility] Comment on above: Order Comment: Order Date: 08/06/24 Order Info: 785-1 - CMP Order Info: [id number] - LIPID Order Info: 3051-0 - T3F Order Info: 3016-3 - TSH Order Info: 3024-7 - T4F Performed By: #### L 500.4050, L500.4100, L501.9520, L506.0400, L501.22688 #### [facility] [address] [place], [address] Creatinine [Mass/Vol] 0.64 mg/dL Low 0.70-1.20 [facility] Comment on above: Order Comment: Order Date: 08/06/24 Order Info: 07-1 - CMP Order Info: [id number] - LIPID Order Info: 3051-0 - T3F Order Info: 3016-3 - TSH Order Info: 3024-7 - T4F Performed By: #### L 500.4050, L500.4100, L501.9520, L506.0400, L501.44553 #### [facility] [address] [place], [address] GAP 11 Normal 5-15 [facility] Comment on above: Order Comment: Order Date: 08/06/24 Order Info: 0786-1 - CMP Order Info: - LIPID Order Info: 305-0 - T3F Order Info: 3 - TSH Order Info: 3023-12 - T4F Performed By: #### L 500.4050, L500.4100, L501.9520, L506.0400, L501.65895 #### [facility] [address] [place], [address] GFR/1.73 sq M.predicted among non-blacks MDRD (S/P/Bld) [Vol rate/Area] 98 mL/min/{1.73_m2} Normal >60 [facility] Comment on above: Order Comment: Order Date: 08/06/24 Order Info: 785-06 - CMP Order Info: - LIPID Order Info: 0 - T3F Order Info: 3015-08 - TSH Order Info: 3023-12 - T4F Result Comment: mL/m in/1.73m2 CKD-EPI Creatinine Equation (2020) Performed By: #### L 500.4050, L500.4100, L501.9520, L506.0400, L501.40703 #### [facility] [address] [place], [address] Globulin (S) [Mass/Vol] 2.5 g/dL Normal 2.2-4.2 [facility] Comment on above: Order Comment: Order Date: 08/06/24 Order Info: 0786 - CMP Order Info: - LIPID Order Info: 0 - T3F Order Info: 3 - TSH Order Info: 3023-12 - T4F Performed By: #### L 500.4050, L500.4100, L501.9520, L506.0400, L501.00304 #### [facility] [address] [place], [address] Glucose [Mass/Vol] 98 mg/dL Normal 70-99 [facility] Comment on above: Order Comment: Order Date: 08/06/24 Order Info: 785-1 - CMP Order Info: [id number] - LIPID Order Info: 3051-0 - T3F Order Info: 3 - TSH Order Info: 7 - T4F Performed By: #### L 500.4050, L500.4100, L501.9520, L506.0400, L501.65779 #### [facility] [address] [place], [address] Potassium [Moles/Vol] 4.5 mmol/L Normal 3.3-5.1 [facility] Comment on above: Order Comment: Order Date: 08/06/24 Order Info: 785-1 - CMP Order Info: [id number] - LIPID Order Info: 3051-0 - T3F Order Info: 3 - TSH Order Info: 7 - T4F Result Comment: Hemo lysis present, Results??could be affected. ?? Performed By: #### L 500.4050, L500.4100, L501.9520, L506.0400, L501.14011 #### [facility] [address] [place], [address] Sodium [Moles/Vol] 134 mmol/L Normal 133-145 [facility] Comment on above: Order Comment: Order Date: 08/06/24 Order Info: 785- - CMP Order Info: [id number] - LIPID Order Info: 3051-0 - T3F Order Info: 3 - TSH Order Info: 7 - T4F Performed By: #### L 500.4050, L500.4100, L501.9520, L506.0400, L501.24305 #### [facility] [address] [place], [address] T PROT 6.7 g/dL Normal 5.9-8.4 [facility] Comment on above: Order Comment: Order Date: 08/06/24 Order Info: 785-1 - CMP Order Info: [id number] - LIPID Order Info: 3051-0 - T3F Order Info: 3 - TSH Order Info: 7 - T4F Performed By: #### L 500.4050, L500.4100, L501.9520, L506.0400, L501.71271 #### [facility] [address] [place], [address] Urea nitrogen [Mass/Vol] 15 mg/dL Normal 4-19 [facility] Comment on above: Order Comment: Order Date: 08/06/24 Order Info: 0786- - CMP Order Info: [id number] - LIPID Order Info: 3051-0 - T3F Order Info: 3 - TSH Order Info: 7 - T4F Performed By: #### L 500.4050, L500.4100, L501.9520, L506.0400, L501.11967 #### [facility] [address] [place], [place], [id number] (007) Free T3on 09-07-2024 Free T3 [Mass/Vol] 2.5 pg/mL Normal 2.18-3.98 [facility] Comment on above: Order Comment: Order Date: 08/06/24 Order Info: 0786 - CMP Order Info: [id number] - LIPID Order Info: 3051-0 - T3F Order Info: 3 - TSH Order Info: [id number] - T4F Performed By: #### L 500.4050, L500.4100, L501.9520, L506.0400, L501.20276 #### [facility] [address] [place], [address] Free C7Juwubef By: Jet beard on 09-07-2024 Free Triiodothyronine (T3) pg/dL 2.5 pg/mL 2.18-3.98 [facility] GFR/1.73 sq M.predicted eileen g non-blacks MDRD (S/P/Bld) [Vol rate/Area]Ordered By: Jet Swift on 09-07-2024 Estimated GFR (MDRD) Non-Af Amer 98 >60 [facility] Comment on above: mL/min/1.73m2 CKD-EP I Creatinine Equation (2020) LDL calc ser/plasOrdered By: Jet Swift on 09-07-2024 LDL Cholesterol, Calculated 102 mg/dL [facility] Comment on above: Nrlmdfltpm=608-719 m g/dL & Higher Tumq=690 mg/dL or greater Laboratory - Chemistry and C hemistry - challengeOrdered By: Jet Swift on 09-07-2024 AST [Catalytic activity/Vol] 25 U/L <32 [facility] Lipid Profileon 09-07-2024 CHOL:HDL 2.47 Normal [facility] Comment on above: Order Comment: Order Date: 08/06/24 Order Info: 0786-1 - CMP Order Info: [id number] - LIPID Order Info: T3F Order Info: 3 - TSH Order Info: 3023-12 T4 Performed By: #### L 500.4050, L500.4100, L501.9520, L506.0400, L501.06116 #### [facility] [address] [place], [address] Cholesterol [Mass/Vol] 190 mg/dL Normal <=200 [facility] Comment on above: Order Comment: Order Date: 08/06/24 Order Info: 0786-1 - CMP Order Info: [id number] - LIPID Order Info: - T3F Order Info: 3 - TSH Order Info: 3023-12 T4F Result Comment: Chol esterol level, Desirable <200 mg/dL Borderline high cholesterol 200-239 mg/dL High cholesterol >=240 mg/dL Recommendations of the NCEP Adult Treatment Panel for the following risk-cutoff thresholds for the [place] population. Performed By: #### L 500.4050, L500.4100, L501.9520, L506.0400, L501.91712 #### [facility] [address] [place], [address] Cholesterol in HDL [Mass/Vol] 77 mg/dL Normal [facility] Comment on above: Order Comment: Order Date: 08/06/24 Order Info: 07 - CMP Order Info: - LIPID Order Info: 0 - T3F Order Info: [id number] - TSH Order Info: 3023-12 T4F Result Comment: Estefania onal Cholesterol Education Program (NCEP) guidelines: <40 mg/dL: Low HDL-cholesterol (major risk factor for CHD) >= 60 mg/dL: High HDL-cholesterol (negative risk factor for CHD) HDL-cholesterol is affected by a number of factors, e.g. smoking, exercise, hormones, sex and age. Performed By: #### L 500.4050, L500.4100, L501.9520, L506.0400, L501.63884 #### [facility] [address] [place], [address] Cholesterol in LDL [Mass/Vol] 102 mg/dL Normal [facility] Comment on above: Order Comment: Order Date: 08/06/24 Order Info: 785-06 - CMP Order Info: - LIPID Order Info: - T3F Order Info: [id number] - TSH Order Info: 3023-12 T4 Result Comment: Bord deayhh=488-685 mg/dL Higher Jlbc=264 mg/dL or greater Performed By: #### L 500.4050, L500.4100, L501.9520, L506.0400, L501.41314 #### [facility] [address] [place], [address] Cholesterol in VLDL [Mass/Vol] 11 mg/dL Normal 5-40 [facility] Comment on above: Order Comment: Order Date: 08/06/24 Order Info: 785-06 - CMP Order Info: - LIPID Order Info: 0 - T3F Order Info: [id number] - TSH Order Info: 3023-12 T4F Performed By: #### L 500.4050, L500.4100, L501.9520, L506.0400, L501.01843 #### [facility] [address] [place], [place], [address] Triglyceride [Mass/Vol] 56 mg/dL Normal [facility] Comment on above: Order Comment: Order Date: 08/06/24 Order Info: 0786-1 - CMP Order Info: [id number] - LIPID Order Info: 3051-0 - T3F Order Info: 3016-3 - TSH Order Info: 3024-7 - T4F Result Comment: The drugs N-Acetylcysteine and Metamizole may falsely depress this assay. Normal range: <150 mg/dL Borderline High: 150-199 mg/dL High: 200-499 mg/dL Very High: >500 mg/dL Performed By: #### L 500.4050, L500.4100, L501.9520, L506.0400, L501.50349 #### [facility] [address] [place], [place], [address] Potassium (Unsp spec) [Mass/ Vol]Ordered By: Jet Swift on 09-07-2024 Potassium [Moles/Vol] 4.5 mmol/L 3.3-5.1 [facility] Comment on above: Hemolysis present, R esults could be affected. Screening total cholesterol/ high density lipoprotein (HDL) cholesterol ratioOrdered By: Jet Swift on 09-07-2024 Cholesterol.total/Chol esterol in HDL [Mass ratio] 2.47 {ratio} [facility] Serum creatinine measurement (mass/volume)Ordered By: Jet Swift on 09-07-2024 Creatinine [Mass/Vol] 0.64 mg/dL Low 0.70-1.20 [facility] Serum globulin measurementOr dered By: Jet Swift on 09-07-2024 Globulin (S) [Mass/Vol] 2.5 g/dL 2.2-4.2 [facility] Serum glucose measurement (m ass/volume)Ordered By: Jet Swift on 09-07-2024 Glucose [Mass/Vol] 98 mg/dL 70-99 [facility] Serum or plasma alanine barnes otransferase (ALT) measurementOrdered By: Jet Swift on 09-07-2024 ALT [Catalytic activity/Vol] 28 U/L <35 [facility] Serum or plasma albumin evette urement (mass/volume)Ordered By: Jet Swift on 09-07-2024 Albumin [Mass/Vol] 4.3 g/dL 3.4-4.8 [facility] Serum or plasma albumin/glob ulin mass ratioOrdered By: Jet Swift on 09-07-2024 Albumin/Globulin [Mass ratio] 1.8 {ratio} 0.9-2.4 [facility] Serum or plasma alkaline meghan sphatase measurementOrdered By: Jet Swift on 09-07-2024 ALP [Catalytic activity/Vol] 77 U/L 35-104 [facility] Serum or plasma calcium evette urement (mass/volume)Ordered By: Jet Swift on 09-07-2024 Calcium [Mass/Vol] 9.2 mg/dL 7.6-11.0 [facility] Serum or plasma cholesterol in HDL measurement (mass/volume)Ordered By: Jet Swift on 09-07-2024 Cholesterol in HDL [Mass/Vol] 77 mg/dL >40 [facility] Comment on above: National Cholesterol Education Program (NCEP) guidelines:<40 mg/dL: Low HDL-cholesterol (major risk factor for CHD)>= 60 mg/dL: High HDL-cholesterol (negative risk factor for CHD)HDL-cholesterol is affected by a number of factors, e.g. smoking, exercise, hormones, sex and age. Serum or plasma cholesterol measurement (mass/volume)Ordered By: Jet Swift on 09-07-2024 Cholesterol [Mass/Vol] 190 mg/dL <201 [facility] Comment on above: Cholesterol level, D esirable <200 mg/dLBorderline high cholesterol 200-239 mg/dLHigh cholesterol >=240 mg/dLRecommendations of the NCEP Adult Treatment Panel for the following risk-cutoff thresholds for the [place] population. Serum or plasma urea nitroge n measurement (mass/volume)Ordered By: Jet Swift on 09-07-2024 Urea nitrogen [Mass/Vol] 15 mg/dL 4-19 [facility] Sodium levelOrdered By: Jet Swift on 09-07-2024 Sodium [Moles/Vol] 134 mmol/L 133-145 [facility] T4 Free Directon 09-07-2024 T4 FREE DIRECT 1.80 ng/dL High 0.76-1.46 [facility] Comment on above: Order Comment: Order Date: 08/06/24 Order Info: [id number] - CMP Order Info: [id number] - LIPID Order Info: [id number] - T3F Order Info: [id number] - TSH Order Info: 7 - T4F Performed By: #### L 500.4050, L500.4100, L501.9520, L506.0400, L501.45558 #### [facility] [address] [place], [place], [id number] T4 freeOrdered By: Jet beard on 09-07-2024 Free T4 [Mass/Vol] 1.80 ng/dL High 0.76-1.46 [facility] TSH DL <= 0.005 mIU/L QnOrde red By: Jet Swift on 09-07-2024 Thyroid Stimulating Hormone (TSH) 0.046 uIU/mL Low 0.300-4.20 0 [facility] Thyroid Stim Hormone (TSH)on 09-07-2024 TSH 0.046 uIU/mL Low 0.300-4.20 0 [facility] Comment on above: Order Comment: Order Date: 08/06/24 Order Info: [id number] - CMP Order Info: [id number] - LIPID Order Info: [id number] - T3F Order Info: 3 - TSH Order Info: 7 - T4F Performed By: #### L 500.4050, L500.4100, L501.9520, L506.0400, L501.26236 #### [facility] [address] [place], [address] Total proteinOrdered By: Ysabel Swift on 09-07-2024 Protein [Mass/Vol] 6.7 g/dL 5.9-8.4 [facility] Triglycerides measurementOrd ered By: Jet Swift on 09-07-2024 Triglyceride [Mass/Vol] 56 mg/dL <199 [facility] Comment on above: The drugs N-Acetylcy steine and Metamizole may falsely depress this assay. Normal range: <150 mg/dLBorderline High: 150-199 mg/dLHigh: 200-499 mg/dLVery High: >500 mg/dL Basic Metabolic Profile (BMP )on 05-28-2024 BUN/CRE 15.5 RATIO Normal -20 [facility] Comment on above: Performed By: #### L 500.4050, L500.4100, L501.9520, L506.0400, L501.97227 #### [facility] [address] [place], [address] CA,Total 9.2 mg/dL Normal 8.5-10.1 [facility] Comment on above: Performed By: #### L 500.4050, L500.4100, L501.9520, L506.0400, L501.74241 #### [facility] [address] [place], [address] Chloride [Moles/Vol] 96 mmol/L Low 98-[address] [facility] Comment on above: Performed By: #### L 500.4050, L500.4100, L501.9520, L506.0400, L501.18420 #### [facility] [address] [place], [address] CO2 [Moles/Vol] 28.0 mmol/L Normal 21.0-32.0 [facility] Comment on above: Performed By: #### L 500.4050, L500.4100, L501.9520, L506.0400, L501.60269 #### [facility] [address] [place], [address] Creatinine [Mass/Vol] 0.77 mg/dL Normal 0.55-1.02 [facility] Comment on above: Result Comment: The validity of the calculated GFR GFRAA in patients over 70 years has not been determined. Clinical correlation is essential. Performed By: #### L 500.4050, L500.4100, L501.9520, L506.0400, L501.86564 #### [facility] [address] [place], [address] EST GFR - AA 96 mL/min Normal >60 [facility] Comment on above: Result Comment: Afri can [place] GFR Calc Performed By: #### L 500.4050, L500.4100, L501.9520, L506.0400, L501.07935 #### [facility] [address] [place], [address] GAP 9 Normal 5-15 [facility] Comment on above: Performed By: #### L 500.4050, L500.4100, L501.9520, L506.0400, L501.06180 #### [facility] [address] [place], [address] GFR/1.73 sq M.predicted among non-blacks MDRD (S/P/Bld) [Vol rate/Area] 80 mL/min/{1.73_m2} Normal >60 [facility] Comment on above: Result Comment: Non- GFR Calc Performed By: #### L 500.4050, L500.4100, L501.9520, L506.0400, L501.77802 #### [facility] [address] [place], [address] Glucose [Mass/Vol] 98 mg/dL Normal 74-106 [facility] Comment on above: Performed By: #### L 500.4050, L500.4100, L501.9520, L506.0400, L501.01783 #### [facility] [address] [place], [address] Potassium [Moles/Vol] 3.2 mmol/L Low 3.5-5.1 [facility] Comment on above: Performed By: #### L 500.4050, L500.4100, L501.9520, L506.0400, L501.03762 #### [facility] [address] [place], [address] Sodium [Moles/Vol] 132 mmol/L Low 136-145 [facility] Comment on above: Performed By: #### L 500.4050, L500.4100, L501.9520, L506.0400, L501.60494 #### [facility] [address] [place], [address] Urea nitrogen [Mass/Vol] 12 mg/dL Normal 7-18 [facility] Comment on above: Performed By: #### L 500.4050, L500.4100, L501.9520, L506.0400, L501.99810 #### [facility] [address] [place], [address] Blood urea nitrogen (BUN)/cr eatinine ratioOrdered By: Jet Swift on 05-28-2024 Urea nitrogen/Creatinine [Mass ratio] 15.5 mg/mg 10 [facility] Carbon dioxide measurementOr dered By: Jet Swift on 05-28-2024 CO2 [Moles/Vol] 28.0 mmol/L 21.0-32.0 [facility] Chloride measurementOrdered By: Jet Swift on 05-28-2024 Chloride [Moles/Vol] 96 mmol/L Low 98-[address] [facility] Direct serum free thyroxine (FT4) measurementOrdered By: Jet Swift on 05-28-2024 Free T4 [Mass/Vol] 1.37 ng/dL 0.76-1.46 [facility] Estimated glomerular filtrat ion rate (GFR) AmericanOrdered By: Jet Swift on 05-28-2024 Estimated GFR (MDRD) Amer 96 mL/min >60 [facility] Comment on above: GFR Calc Free T3on 05-28-2024 Free T3 [Mass/Vol] 1.9 pg/mL Low 2.18-3.98 [facility] Comment on above: Performed By: #### L 500.4050, L500.4100, L501.9520, L506.0400, L501.38751 #### [facility] [address] [place], [address] Free [id number] By: Jet beard on 05-28-2024 Free Triiodothyronine (T3) pg/dL 1.9 pg/mL Low 2.18-3.98 [facility] Glomerular filtration rate ( GFR) estimationOrdered By: Jet Swift on 05-28-2024 Estimated GFR (MDRD) Non-Af Amer 80 mL/min >60 [facility] Comment on above: Non- GFR Calc Glucose measurementOrdered B y: Jet Swift on 05-28-2024 Glucose [Mass/Vol] 98 mg/dL 74-106 [facility] High density lipoprotein (HD L) measurementOrdered By: Jet Swift on 05-28-2024 Cholesterol in HDL [Mass/Vol] 91 mg/dL >40 [facility] Comment on above: The drugs N-Acetylcy steine and Metamizole may falsely depress this assay. Reference Range HDL <40 mg/dL Low HDL Cholesterol HDL >or= 60 mg/dL High HDL Cholesterol Lipid Profileon 05-28-2024 Cholesterol [Mass/Vol] 263 mg/dL High 200 [facility] Comment on above: Result Comment: <200 mg/dL Desirable 200-240 mg/dL Borderline >240 mg/dL High Risk Performed By: #### L 500.4050, L500.4100, L501.9520, L506.0400, L501.13550 #### [facility] [address] [place], [address] Cholesterol in HDL [Mass/Vol] 91 mg/dL Normal [facility] Comment on above: Result Comment: The drugs N-Acetylcysteine and Metamizole may falsely depress this assay. Reference Range HDL <40 mg/dL Low HDL Cholesterol HDL >or= 60 mg/dL High HDL Cholesterol Performed By: #### L 500.4050, L500.4100, L501.9520, L506.0400, L501.51550 #### [facility] [address] [place], [address] Cholesterol in LDL [Mass/Vol] 163 mg/dL High 0-130 [facility] Comment on above: Performed By: #### L 500.4050, L500.4100, L501.9520, L506.0400, L501.95296 #### [facility] [address] [place], [address] Cholesterol in VLDL [Mass/Vol] 9 mg/dL Normal 5-40 [facility] Comment on above: Performed By: #### L 500.4050, L500.4100, L501.9520, L506.0400, L501.83727 #### [facility] [address] [place], [address] Triglyceride [Mass/Vol] 46 mg/dL Normal [facility] Comment on above: Result Comment: The drugs N-Acetylcysteine and Metamizole may falsely depress this assay. Serum Triglycerides Reference Interval Normal <150 mg/dL Borderline high 150 - 199 mg/dL High 200 - 499 mg/dL Very High > or = 500 mg/dL Performed By: #### L 500.4050, L500.4100, L501.9520, L506.0400, L501.25324 #### [facility] [address] [place], [address] Low density lipoprotein (LDL ) cholesterol measurementOrdered By: Jet Swift on 05-28-2024 Cholesterol in LDL [Mass/Vol] 163 mg/dL High 0-130 [facility] Potassium measurementOrdered By: Jet Swift on 05-28-2024 Potassium [Moles/Vol] 3.2 mmol/L Low 3.5-5.1 [facility] Serum anion gap measurementO rdered By: Jet Swift on 05-28-2024 Anion gap [Moles/Vol] 9 mmol/L 5-15 [facility] Serum or plasma calcium evette urement (mass/volume)Ordered By: Jet Swift on 05-28-2024 Calcium [Mass/Vol] 9.2 mg/dL 8.5-10.1 [facility] Serum or plasma cholesterol measurement (mass/volume)Ordered By: Jet Swift on 05-28-2024 Cholesterol [Mass/Vol] 263 mg/dL High <200 [facility] Comment on above: <200 mg/dL Desirable 200-240 mg/dL Borderline >240 mg/dL High Risk Serum or plasma creatinine m easurement (mass/volume)Ordered By: Jet Swift on 05-28-2024 Creatinine [Mass/Vol] 0.77 mg/dL 0.55-1.02 [facility] Comment on above: The validity of the calculated GFR & GFRAA in patients over 70 years has not been determined. Clinical correlation is essential. Serum or plasma urea nitroge n measurement (mass/volume)Ordered By: Jet Swift on 05-28-2024 Urea nitrogen [Mass/Vol] 12 mg/dL 7-18 [facility] Sodium levelOrdered By: Jet Swift on 05-28-2024 Sodium [Moles/Vol] 132 mmol/L Low 136-145 [facility] T4 Free Directon 05-28-2024 T4 FREE DIRECT 1.37 ng/dL Normal 0.76-1.46 [facility] Comment on above: Performed By: #### L 500.4050, L500.4100, L501.9520, L506.0400, L501.53395 #### [facility] [address] [place], [place], [id number] TSH QnOrdered By: Jet fields on 05-28-2024 Thyroid Stimulating Hormone (TSH) 0.982 uIU/mL 0.358-3.74 0 [facility] Thyroid Stim Hormone (TSH)on 05-28-2024 TSH 0.982 uIU/mL Normal 0.358-3.74 0 [facility] Comment on above: Performed By: #### L 500.4050, L500.4100, L501.9520, L506.0400, L501.88207 #### [facility] [address] [place], [place], [id number] Triglycerides measurementOrd ered By: Jet Swift on 05-28-2024 Triglyceride [Mass/Vol] 46 mg/dL <199 [facility] Comment on above: The drugs N-Acetylcy steine and Metamizole may falsely depress this assay.Serum Triglycerides Reference Interval Normal <150 mg/dL Borderline high 150 - 199 mg/dL High 200 - 499 mg/dL Very High > or = 500 mg/dL Very low density lipoprotein (VLDL) cholesterol measurementOrdered By: Jet Swift on 05-28-2024 VLDL Cholesterol 9 mg/dL 5-40 [facility] Urine Cultureon 01-31-2024 [facility] Presumptive E. coli [place] Count >100,000 Presumptive E. coli: REACTION Ampicillin Islt CHRIS >=32 R Ampicillin+Sulbac Islt CHRIS >=32 R ceFAZolin Islt CHRIS >=64 R Cefepime Islt CHRIS 0.5 S cefTRIAXone Islt CHRIS >=64 R Ciprofloxacin Islt CHRIS <=0.25 S B-Lactamase Extended Susc Islt NEG Gentamicin Islt CHRIS <=1 S Imipenem Islt CHRIS <=0.25 S levoFLOXacin Islt CHRIS <=0.12 S Nitrofurantoin Islt CHRIS <=16 S Pip+Tazo Islt CHRIS 8 S Tobramycin Islt CHRIS <=1 S TMP SMX Islt CHRIS <=20 S Normal [facility] Comment on above: Performed By: #### L 500.4050, L500.4100, L501.9520, L506.0400, L501.72278 #### [facility] [address] [place], [place], [address] Urgent Care Visit Reporton 0 01-29-2024 Urgent Care Visit Report [facility] [address], [address] [place], [place] [address] OFFICE VISIT Date of Service: 01/29/24 MR#: [id number] Acct: [id number] Name: CLEMENTE OSUNA Rep #: [id number] : 1960 Provider: GUY Krishnamurthy Age/Sex: 63/F Location: [facility] Status: Signed Intake Vital Signs 06/07/22 12:09 01/29/24 13:15 Height 5 ft 6 in 5 ft 6 in Weight: 135 lb BMI 21.7 BP 148/96 H Blood Pressure Location Lt brachial Position Sitting Respiration 16 Pulse 94 Pulse Source Monitor Temp 98.4 F Temp Source Temporal Pulse Oximetry (%) 94 Oxygen Delivery Method room air Intake Visit Reasons: CONCERN UTI Chief Complaint: DYSURIA SX LAST MONDAY Program Management Analyst Required: No Accompanied by: Self Is patient in pain?: No Allergies ciprofloxacin (From Cipro) Adverse Reaction (Mild, Verified 01/29/24 13:16) GI upset Medications ???Medication ???Instructions ???Recorded ???Confirmed ???Type sertraline 100 mg tablet 50 mg PO DAILY mood 12/19/16 01/29/24 History lisinopril 10 0.5 tab PO DAILY blood pressure 12/14/20 01/29/24 History mg-hydrochlorothiazide 12.5 mg tablet (Zestoretic) levothyroxine 112 mcg tablet 112 mcg PO DAILY 06/03/22 01/29/24 History multivitamin 1 tab PO DAILY 06/03/22 01/29/24 History nortriptyline 25 mg capsule 25 mg PO QHS 06/03/22 01/29/24 History nitrofurantoin 100 mg PO Q12H 5 days #10 caps 01/29/24 01/29/24 Rx monohydrate/macrocrystals 100 mg capsule (Macrobid) Have you fallen in the past year?: No PFSH Medical History History of ulceration Wears glasses Thyroid disease Non-smoker Hx of chronic bronchitis Hypertension History of skin cancer History of thyroid cancer History of breast cancer Surgical History Hx of left mastectomy History of esophagogastroduodenoscopy (EGD) S/P fine needle biopsy History of bilateral breast biopsy History of tonsillectomy History of lumpectomy of left breast History of total thyroidectomy Family History Mother Heart disease Father Hydrocephalus Social History Smoking Status: Never smoker HPI HPI Chief Complaint: DYSURIA SX LAST MONDAY Details: CLEMENTE OSUNA, is a 63 F who presents to the office today for initial evaluation at the [facility] for approximately 4 day history of dysuria and urinary frequency with suprapubic pressure. No complaints of fever, chills, sweats, lightheadedness/dizziness, nausea/vomiting, or chest pain/shortness of breath/dyspnea on exertion/back pain. No changes in color/ character of urine or stool. No yoyy-flg-fkzuqxr products taken to assist. No other associated symptoms and no alleviating/aggravating factors. ROS Const Constitutional: No other (As above) Exam Const General: cooperative, healthy appearing and no acute distress Orientation: alert, awake and oriented x3 Chest Chest palpation inspection: normal inspection of the chest Resp Effort Inspection: normal respiratory effort and able to speak in complete sentences Auscultation: Bilateral: Clear to Auscultation Cardio Palpation: normal PMI Rate: regular rate Rhythm: regular rhythm Heart Sounds: S1 normal, S2 normal, no gallops, no murmurs and no rubs Pulses: radial pulses present GI Inspection: normal to inspection Palpation: soft and tender suprapubic (Patient describes upon self-palpation) General: No CVA tenderness Skin General: no rashes or lesions noted Neuro General: patient alert, patient awake and patient oriented x3 Cognition: normal cognition Speech: speech normal Psych Appearance: grossly normal Mental Status: mental status grossly normal Mood: congruent mood Affect: normal affect Speech and Movement: speech and movement normal Attitude: cooperative Diagnoses Urinary tract infection N39.0 Assessment and Plan Assessment and Plan (1) Urinary tract infection: Status: Acute Plan: See POC results; urine sent to lab for UA and C/S. Macrobid as prescribed today. Supportive measures as instructed today. Follow-up with PCP in 3 to 5 days should symptoms not improve, sooner should symptoms only worsen or any other concerns develop. Patient states acknowledging understanding all the above Results POC Urinalysis Dip (Clinic) Office Urine Color KADE Last Edit by Ann Perkins MA on 01/29/24 13:25 Office Urine Clarity Cloudy Last Edit by Ann Perkins MA on 01/29/24 13:25 Office Urine Glucose Negative Last Edit by Ann Perkins MA on 01/29/24 13:25 Office Urine Ketones Negative Last Edit by Ann Perkins MA on 01/29/24 (more content not included)... Normal [facility] Urinalysis, Completeon 01-28 BACTERIA 0 SEEN Normal None Seen [facility] Comment on above: Order Comment: Order Date: 08/06/24 Order Info: [id number] - CMP Order Info: [id number] - LIPID Order Info: [id number] - T3F Order Info: [id number] - TSH Order Info: [id number] - T4F Performed By: #### L 500.4050, L500.4100, L501.9520, L506.0400, L501.76520 #### [facility] [address] [place], [address] EPI,SQUAMOUS 0 SEEN Normal 5-10 [facility] Comment on above: Order Comment: Order Date: 08/06/24 Order Info: [id number] - CMP Order Info: - LIPID Order Info: [id number] - T3F Order Info: [id number] - TSH Order Info: [id number] - T4F Performed By: #### L 500.4050, L500.4100, L501.9520, L506.0400, L501.08945 #### [facility] [address] [place], [address] Mucus Ql (Urine sed) 0 SEEN Normal [facility] Comment on above: Order Comment: Order Date: 08/06/24 Order Info: [id number] - CMP Order Info: [id number] - LIPID Order Info: [id number] - T3F Order Info: [id number] - TSH Order Info: [id number] - T4F Performed By: #### L 500.4050, L500.4100, L501.9520, L506.0400, L501.81694 #### [facility] [address] [place], [address] RBC 0 SEEN Normal 0-5 [facility] Comment on above: Order Comment: Order Date: 08/06/24 Order Info: [id number] - CMP Order Info: [id number] - LIPID Order Info: [id number] - T3F Order Info: [id number] - TSH Order Info: [id number] - T4F Performed By: #### L 500.4050, L500.4100, L501.9520, L506.0400, L501.38457 #### [facility] [address] [place], [address] WBC >100 SEEN Normal 0-5 [facility] Comment on above: Order Comment: Order Date: 08/06/24 Order Info: [id number] - CMP Order Info: [id number] - LIPID Order Info: [id number] - T3F Order Info: 3 - TSH Order Info: [id number] - T4F Result Comment: Micr oscopic field is filled. Other elements may be obscured. Performed By: #### L 500.4050, L500.4100, L501.9520, L506.0400, L501.19498 #### [facility] [address] [place], [address] SCREEN MAMM (CAD) W/ANNETTA UNI Romulo 12-11-2023 SCREEN MAMM (CAD) W/ANNETTA UNI R [facility] [address] [place] [address] SCREEN MAMM (CAD) W/ANNETTA UNI R MR#: [id number] Acct: [id number] Name: CLEMENTE OSUNA Rep #: [id number] : 1960 F 63 From: [place] arthur MD PCP: Dr. Jet Swift MD Status: [facility] Study: SCREEN MAMM (CAD) W/ANNETTA UNI R Date of Exam: 0 12/11/23 Exam# [id number] Ordering Dr: Jet Swift MD :[id number] MAMMOGRAPHY - UNILATERAL SCREENING: RIGHT BREAST REASON FOR EXAM: Female, 63 years old. Routine annual screening examination (unilateral). PERTINENT HISTORY: Personal history of breast cancer. Prior left mastectomy and right stereotactic breast biopsy. TECHNIQUE: Digital unilateral breast annetta (3D mammographic acquisition) in the CC and MLO projections. 2-D mediolateral oblique (MLO) and craniocaudad (CC) views of both breasts were obtained. CAD: Full Field Digital Mammography with Computer Added Detection was performed. COMPARISON: Comparison is made with prior study dated December 08, 2022 and December 06, 2021. FINDINGS: Breast Composition: The breasts are heterogeneously dense, which may obscure small masses. There are no dominant masses or suspicious calcifications. Stable benign-appearing right breast calcifications. No other significant abnormalities are identified. There has been no significant change since the prior study. BI/SCREEN MAMM (CAD) W/ANNETTA UNI R IMPRESSION: Stable unilateral screening mammogram. Yearly follow-up mammogram recommended. (A) ASSESSMENT CATEGORY: BIRADS Category 2: Benign. A letter regarding these results will be sent to the patient by the facility within 30 days. Approximately 10% of breast cancers are not detected by mammography. A normal mammogram should not delay biopsy of a clinically suspicious abnormality. [id number] Electronically Signed: Indio Emerson MD at 12:51 EDT , CC: Dr. Jet Swift MD Wheelchair Rental Clerk: Signed Normal [facility] Comprehensive Metabolic Prof ilon 11-22-2023 Albumin [Mass/Vol] 3.8 g/dL Normal 3.2-5.0 [facility] Comment on above: Performed By: #### L 501.9520, L501.63884, L500.4050, L500.4100, L506.0400 #### [facility] [address] [place], [address] Albumin/Globulin [Mass ratio] 1.3 {ratio} Normal 0.9-2.4 [facility] Comment on above: Performed By: #### L 501.9520, L501.05253, L500.4050, L500.4100, L506.0400 #### [facility] [address] [place], [address] ALK P 74 U/L Normal 45-117 [facility] Comment on above: Performed By: #### L 501.9520, L501.81503, L500.4050, L500.4100, L506.0400 #### [facility] [address] [place], [address] ALT [Catalytic activity/Vol] 34 U/L Normal 13-56 [facility] Comment on above: Performed By: #### L 501.9520, L501.93321, L500.4050, L500.4100, L506.0400 #### [facility] [address] [place], [address] AST [Catalytic activity/Vol] 23 U/L Normal 15-37 [facility] Comment on above: Performed By: #### L 501.9520, L501.05754, L500.4050, L500.4100, L506.0400 #### [facility] [address] [place], [address] Bilirubin [Mass/Vol] 0.30 mg/dL Normal 0.20-1.[address] [facility] Comment on above: Result Comment: For patients on eltrombopag therapy, use of Dimension [place] TBIL is not recommended. Performed By: #### L 501.9520, L501.95575, L500.4050, L500.4100, L506.0400 #### [facility] [address] [place], [address] BUN/CRE 19.6 RATIO Normal 10-20 [facility] Comment on above: Performed By: #### L 501.9520, L501.30330, L500.4050, L500.4100, L506.0400 #### [facility] [address] [place], [address] CA,Total 9.1 mg/dL Normal 8.5-10.1 [facility] Comment on above: Performed By: #### L 501.9520, L501.46062, L500.4050, L500.4100, L506.0400 #### [facility] [address] [place], [address] Chloride [Moles/Vol] 96 mmol/L Low 98-[address] [facility] Comment on above: Performed By: #### L 501.9520, L501.70201, L500.4050, L500.4100, L506.0400 #### [facility] [address] [place], [address] CO2 [Moles/Vol] 29.0 mmol/L Normal 21.0-32.0 [facility] Comment on above: Performed By: #### L 501.9520, L501.91722, L500.4050, L500.4100, L506.0400 #### [facility] [address] [place], [address] Creatinine [Mass/Vol] 0.66 mg/dL Normal 0.55-1.02 [facility] Comment on above: Result Comment: The validity of the calculated GFR GFRAA in patients over 70 years has not been determined. Clinical correlation is essential. Performed By: #### L 501.9520, L501.29337, L500.4050, L500.4100, L506.0400 #### [facility] [address] [place], [address] EST GFR - AA 115 mL/min Normal >60 [facility] Comment on above: Result Comment: Afri can Andorran GFR Calc Performed By: #### L 501.9520, L501.78549, L500.4050, L500.4100, L506.0400 #### [facility] [address] [place], [address] GAP 8 Normal 5-15 [facility] Comment on above: Performed By: #### L [id number], L501.46858, L500.4050, L500.4100, L506.0400 #### [facility] [address] [place], [address] GFR/1.73 sq M.predicted among non-blacks MDRD (S/P/Bld) [Vol rate/Area] 95 mL/min/{1.73_m2} Normal >60 [facility] Comment on above: Result Comment: Non- GFR Calc Performed By: #### L 501.9520, L501.89517, L500.4050, L500.4100, L506.0400 #### [facility] [address] [place], [address] Globulin (S) [Mass/Vol] 3.0 g/dL Normal 2.2-4.2 [facility] Comment on above: Performed By: #### L 501.9520, L501.43361, L500.4050, L500.4100, L506.0400 #### [facility] [address] [place], [address] Glucose [Mass/Vol] 97 mg/dL Normal 74-106 [facility] Comment on above: Performed By: #### L 501.9520, L501.97722, L500.4050, L500.4100, L506.0400 #### [facility] [address] [place], [address] Potassium [Moles/Vol] 3.8 mmol/L Normal 3.5-5.1 [facility] Comment on above: Performed By: #### L 501.9520, L501.22332, L500.4050, L500.4100, L506.0400 #### [facility] [address] [place], [address] Sodium [Moles/Vol] 133 mmol/L Low 136-145 [facility] Comment on above: Performed By: #### L 501.9520, L501.45309, L500.4050, L500.4100, L506.0400 #### [facility] [address] [place], [address] T PROT 6.8 g/dL Normal 6.4-8.2 [facility] Comment on above: Performed By: #### L 501.9520, L501.09377, L500.4050, L500.4100, L506.0400 #### [facility] [address] [place], [address] Urea nitrogen [Mass/Vol] 13 mg/dL Normal 7-18 [facility] Comment on above: Performed By: #### L 501.9520, L501.89084, L500.4050, L500.4100, L506.0400 #### [facility] [address] [place], [address] Free T3on 11-22-2023 Free T3 [Mass/Vol] 2.4 pg/mL Normal 2.18-3.98 [facility] Comment on above: Performed By: #### L 501.9520, L501.15812, L500.4050, L500.4100, L506.0400 #### [facility] [address] [place], [address] Lipid Profileon 06-05-2024 Cholesterol [Mass/Vol] 218 mg/dL High 200 [facility] Comment on above: Result Comment: <200 mg/dL Desirable 200-240 mg/dL Borderline >240 mg/dL High Risk Performed By: #### L 501.9520, L501.95952, L500.4050, L500.4100, L506.0400 #### [facility] [address] [place], [address] Cholesterol in HDL [Mass/Vol] 82 mg/dL Normal [facility] Comment on above: Result Comment: The drugs N-Acetylcysteine and Metamizole may falsely depress this assay. Reference Range HDL <40 mg/dL Low HDL Cholesterol HDL >or= 60 mg/dL High HDL Cholesterol Performed By: #### L 501.9520, L501.31036, L500.4050, L500.4100, L506.0400 #### [facility] [address] [place], [address] Cholesterol in LDL [Mass/Vol] 124 mg/dL Normal 0-130 [facility] Comment on above: Performed By: #### L 501.9520, L501.97289, L500.4050, L500.4100, L506.0400 #### [facility] [address] [place], [address] Cholesterol in VLDL [Mass/Vol] 12 mg/dL Normal 5-40 [facility] Comment on above: Performed By: #### L 501.9520, L501.40517, L500.4050, L500.4100, L506.0400 #### [facility] [address] [place], [address] Triglyceride [Mass/Vol] 58 mg/dL Normal [facility] Comment on above: Result Comment: The drugs N-Acetylcysteine and Metamizole may falsely depress this assay. Serum Triglycerides Reference Interval Normal <150 mg/dL Borderline high 150 - 199 mg/dL High 200 - 499 mg/dL Very High > or = 500 mg/dL Performed By: #### L 501.9520, L501.70546, L500.4050, L500.4100, L506.0400 #### [facility] [address] [place], [address] T4 Free Directon 11-22-2023 T4 FREE DIRECT 1.27 ng/dL Normal 0.76-1.46 [facility] Comment on above: Performed By: #### L 501.9520, L501.05640, L500.4050, L500.4100, L506.0400 #### [facility] [address] [place], [address] Thyroid Stim Hormone (TSH)on 11-22-2023 TSH 0.75 uIU/mL Normal 0.358-3.74 [facility] Comment on above: Performed By: #### L 501.9520, L501.26940, L500.4050, L500.4100, L506.0400 #### [facility] [address] [place], [address] Bilirubin Test strip Ql (U)O rdered By: Dr. Swift on 10-18-2022 Bilirubin Ql (U) Negative Negative [facility] Ketones Test strip Ql (U)Ord ered By: Dr. Swift on 10-18-2022 Ketones Ql (U) Negative Negative [facility] Nitrite Test strip Ql (U)Ord ered By: Dr. Swift on 10-18-2022 Nitrite Ql (U) Negative Negative [facility] Protein Test strip Ql (U)Ord ered By: Dr. Swift on 10-18-2022 Protein Ql (U) Negative Negative [facility] Urine blood detectionOrdered By: Dr. Swift on 10-18-2022 RBC Ql (U) Negative Negative [facility] Urine clarityOrdered By: Dr. Swift on 10-18-2022 Clarity (U) Sl. Cloudy Clear [facility] Urine color determinationOrd ered By: Dr. Swift on 10-18-2022 Color (U) Yellow Yellow [facility] Urine glucose detectionOrder ed By: Dr. Swift on 10-18-2022 Glucose Ql (U) Normal mg/dl Normal [facility] Urine leukocyte esterase det ection by dipstickOrdered By: Dr. Swift on 10-18-2022 Leukocyte esterase Test strip Ql (U) Negative Negative [facility] Urine pHOrdered By: Dr. Wing beard on 10-18-2022 pH (U) 8.0 [pH] 5.0 - 8.0 [facility] Urine specific gravity measu rementOrdered By: Dr. Swift on 10-18-2022 Specific gravity (U) [Rel density] 1.010 1.002-1.03 0 [facility] Urobilinogen Auto test strip Ql (U)Ordered By: Dr. Swift on 10-18-2022 Urobilinogen Ql (U) Normal mg/dl Normal [facility] Basophil percentageOrdered B y: Dr. Swift on 10-17-2022 Bilirubin [Mass/Vol] 0.50 mg/dL 0.20-1.[address] [facility] Comment on above: For patients on eltr ombopag therapy, use of Dimension [place] TBIL is not recommended. Chloride [Moles/Vol] 97 mmol/L 98-[address] [facility] Cholesterol [Mass/Vol] 224 mg/dL <200 [facility] Comment on above: <200 mg/dL Desirable 200-240 mg/dL Borderline >240 mg/dL High Risk Glucose [Mass/Vol] 96 mg/dL 74-106 [facility] Potassium [Moles/Vol] 3.7 mmol/L 3.5-5.1 [facility] Protein [Mass/Vol] 7.4 g/dL 6.4-8.2 [facility] Sodium [Moles/Vol] 134 mmol/L 136-145 [facility] Triglyceride [Mass/Vol] 39 mg/dL <199 [facility] Comment on above: The drugs N-Acetylcy steine and Metamizole may falsely depress this assay.Serum Triglycerides Reference Interval Normal <150 mg/dL Borderline high 150 - 199 mg/dL High 200 - 499 mg/dL Very High > or = 500 mg/dL Laboratory - Chemistry and C hemistry - challengeOrdered By: Dr. Swift on 10-17-2022 ALP [Catalytic activity/Vol] 77 U/L 45-117 [facility] ALT [Catalytic activity/Vol] 36 U/L 13-56 [facility] CO2 [Moles/Vol] 31.0 mmol/L 21.0-32.0 [facility] Free T4 [Mass/Vol] 1.21 ng/dL 0.76-1.46 [facility] Globulin (S) [Mass/Vol] 3.4 g/dL 2.2-4.2 [facility] Urea nitrogen/Creatinine [Mass ratio] 16.9 mg/mg 10-20 [facility] No Panel InformationOrdered By: Dr. Swift on 10-17-2022 Estimated GFR (MDRD) Amer 97 mL/min >60 [facility] Comment on above: GFR Calc Estimated GFR (MDRD) Non-Af Amer 80 mL/min >60 [facility] Comment on above: Non- GFR Calc Free Triiodothyronine (T3) pg/dL 2.4 pg/mL 2.18-3.98 [facility] Thyroid Stimulating Hormone (TSH) 0.59 uIU/mL 0.358-3.74 [facility] Serum or plasma albumin evette urement (mass/volume)Ordered By: Dr. Swift on 10-17-2022 Albumin [Mass/Vol] 4.0 g/dL 3.2-5.0 [facility] Serum or plasma albumin/glob ulin mass ratioOrdered By: Dr. Swift on 10-17-2022 Albumin/Globulin [Mass ratio] 1.2 {ratio} 0.9-2.4 [facility] Serum or plasma calcium evette urement (mass/volume)Ordered By: Dr. Swift on 10-17-2022 Calcium [Mass/Vol] 9.1 mg/dL 8.5-10.1 [facility] Serum or plasma cholesterol in HDL measurement (mass/volume)Ordered By: Dr. Swift on 10-17-2022 Cholesterol in HDL [Mass/Vol] 90 mg/dL >40 [facility] Comment on above: The drugs N-Acetylcy steine and Metamizole may falsely depress this assay. Reference Range HDL <40 mg/dL Low HDL Cholesterol HDL >or= 60 mg/dL High HDL Cholesterol Serum or plasma cholesterol in VLDL measurement (mass/volume)Ordered By: Dr. Swift on 10-17-2022 Cholesterol in VLDL [Mass/Vol] 8 mg/dL 5-40 [facility] Serum or plasma creatinine m easurement (mass/volume)Ordered By: Dr. Swift on 10-17-2022 Creatinine [Mass/Vol] 0.77 mg/dL 0.55-1.02 [facility] Comment on above: The validity of the calculated GFR & GFRAA in patients over 70 years has not been determined. Clinical correlation is essential. Serum or plasma low density lipoprotein (LDL) cholesterol measurement (mass/volume)Ordered By: Dr. Swift on 10-17-2022 Cholesterol in LDL [Mass/Vol] 126 mg/dL 0-130 [facility] Serum or plasma urea nitroge n measurement (mass/volume)Ordered By: Dr. Swift on 10-17-2022 Urea nitrogen [Mass/Vol] 13 mg/dL 7-18 [facility] Thin prep Papanicolaou smear with manual screeningOrdered By: Dr. Swift on 10-17-2022 Thin prep Papanicolaou smear with manual screening 24 U/L 15-37 [facility] Thin prep Papanicolaou smear with manual screening 6 5-15 [facility] CNPNon 10-01-2022 CNPN Telephone (UCTR) CLEMENTE OSUNA ([id number]) 1960 F Date Time Provider Department 10/01/22 CHANTAL BURCIAGA IZABELA During your visit today, we recorded the following information about you: Gin Sarah 10/01/2022 10:27 AM Signed ----- Message from Chantal Burciaga APRN.REGULATORY SUBMISSIONS ASSOCIATE sent at 10/01/2022 8:14 AM EDT ----- Urine culture did not show clear evidence of infection, however it appears sample may have been contaminated with skin bacteria during collection. She may continue to take antibiotic if it has been helpful. Recommend follow up with PCP to ensure hematuria has resolved. Chantal Burciaga, MIREYA Gin Burciaga 10/01/2022 10:29 AM Signed Patient given results and verbalized understanding of instructions given. Gin Burciaga Allergies As of Date: 10/01/2022 (No Known Allergies) Date Reviewed: 09/29/2022 Reviewed by: Faith Mcrae Ma - Fully Assessed Reason for Visit: Results [95] Prescriptions as of 10/01/2022 - cephALEXin (KEFLEX) 500 mg capsule Take 1 capsule by mouth three times daily for 7 days. - phenazopyridine (PYRIDIUM) 200 mg tablet Take 1 tablet by mouth three times daily as needed. - naproxen sodium (ALEVE) 220 mg tablet Take 220 mg by mouth as needed. - PROAIR HFA 90 mcg/actuation inhaler Inhale 2 Puffs as instructed every 4 hours as needed. - levothyroxine (SYNTHROID) 100 mcg tablet Take 100 mcg by mouth once daily. - lisinopril-hydrochlorothiazi de (PRINZIDE,ZESTORETIC) 10-12.5 mg per tablet Take 1 tablet by mouth once daily. - hydroCHLOROthiazide (HYDRODIURIL, ESIDRIX) 25 mg tablet Take 1/2 tablet by mouth once daily. - sertraline hcl(ZOLOFT 100 MG TAB) Take 1/2 tablet by mouth once daily. Problem List As Of Date 10/01/2022 Noted Resolved Lobular Hyperplasia, Atypical, Breast [N60.99] 08/21/2009 Ductal carcinoma in situ (DCIS) of left breast *01/09/2017 Encounter Status:Closed by GIN BURCIAGA on 10/01/22 Normal [facility] Bacteria Ur Culton 3 Bacteria identified Cx Nom (U) ORGANISM ID: 1 10,000 -<50,000 CFU/ml Mixed microbiota No further workup. Mixed microbiota can be due to???urine???contamination with skin bacteria at time of collection or presence of a long-term urinary catheter. If a new culture is needed, please consider re-education of the patient on proper midstream collection technique or straight catheterization for???urine???collection. Normal [facility] Comment on above: Performed By: #### 6 30-4 #### [facility] CLIA [id number] [address] [place] [address] [place] CNOVon 09-29-2022 CNOV Office Visit (UCWSTR ) CLEMENTE OSUNA ([id number]) 1960 F Date Time Provider Department 09/29/22 6:00 PM CHANTAL BURCIAGA [facility] During your visit today, we recorded the following information about you: Temperature Pulse Respiration Blood pressure 97 degrees 78/minute 14/minute 122/80 Weight 62.6 kg Chantal Burciaga APRN.REGULATORY SUBMISSIONS ASSOCIATE 09/29/2022 7:10 PM Signed Subjective UTI Associated symptoms include frequency. Pertinent negatives include no chills, no nausea, no vomiting and no hematuria. Clemente Osuna is a 61 year old female who presents with 2 days of urinary frequency and dysuria. She denies fever, nausea, vomiting, or abdominal pain. She has had some low back pain. She has been taking AZO OTC for the pain. Review of Systems Constitutional: Negative for chills and fever. Respiratory: Negative. Cardiovascular: Negative. Gastrointestinal: Negative for abdominal pain, nausea and vomiting. Genitourinary: Positive for dysuria and frequency. Negative for hematuria. Musculoskeletal: Positive for back pain. BP 122/80 Pulse 78 Temp 36.1 ?C (97 ?F) (Tympanic) Resp 14 Wt 62.6 kg (138 lb) BMI 22.79 kg/m? PAST MEDICAL HISTORY Diagnosis Date Anxiety Hypercholesterolemia Hypertension Hypertrophy of breast lobular hyperplasia, left breast Mammographic microcalcification 07/2009 Thyroid cancer (HCC) 1989 PAST SURGICAL HISTORY Procedure Laterality Date BREAST LUMPECTOMY HX Left 12/21/2016 BRST NDL LOC WIRE PLCMT LT 10/01/2009 LEFT BREAST EXC BREAST LES PREOP PLMT RAD MARKER OPEN 1 LES 10/01/2009 LEFT BREAST Excision breast cyst x3 STEREOTACTIC CORE BIOPSY 08/13/2009 Thryoidectomy Total TONSILLECTOMY HX US BREAST NEEDLE CORE BIOPSY LT ALLERGIES Patient has no known allergies. MEDICATIONS levothyroxine (SYNTHROID) 100 mcg tablet Take 100 mcg by mouth once daily. lisinopril-hydrochlorothiazi de (PRINZIDE,ZESTORETIC) 10-12.5 mg per tablet Take 1 tablet by mouth once daily. sertraline hcl(ZOLOFT 100 MG TAB) Take 1/2 tablet by mouth once daily. naproxen sodium (ALEVE) 220 mg tablet Take 220 mg by mouth as needed. PROAIR HFA 90 mcg/actuation inhaler Inhale 2 Puffs as instructed every 4 hours as needed. hydroCHLOROthiazide (HYDRODIURIL, ESIDRIX) 25 mg tablet Take 1/2 tablet by mouth once daily. FAMILY HISTORY Problem Relation Age of Onset other (Heart Disease) Mother other (Heart disease) Father Cancer Maternal Grandfather colon Social History Tobacco Use Smoking status: Never Smokeless tobacco: Never Vaping Use Vaping Use: Never used Substance Use Topics Alcohol use: No Drug use: No Objective Physical Exam Vitals and nursing note reviewed. Constitutional: General: She is not in acute distress. Appearance: Normal appearance. She is not toxic-appearing. Cardiovascular: Rate and Rhythm: Normal rate and regular rhythm. Heart sounds: Normal heart sounds. Pulmonary: Effort: Pulmonary effort is normal. No respiratory distress. Breath sounds: Normal breath sounds. No wheezing. Abdominal: General: There is no distension. Palpations: Abdomen is soft. There is no mass. Tenderness: There is no abdominal tenderness. There is no right CVA tenderness, left CVA tenderness or guarding. Skin: General: Skin is warm and dry. Neurological: Mental Status: She is alert. ASSESSMENT/PLAN: 1. Dysuria - ICD9: 788.1, ICD10: R30.0 acute - UA positive for marleen esterase and nitrates - Send urine for culture - Begin treatment with cephalexin for 7 days - Patient education for prevention given - UA DIP, URINE (POC) - URINE CULTURE - CEPHALEXIN 500 MG CAPSULE - PHENAZOPYRIDINE 200 MG TABLET - Follow-up with your PCP in 3-5 days if symptoms have not improved or sooner if symptoms worsen - Discussed red flags and need for immediate medical evaluation if any occur. - Discussed supportive care treatment with fluids, rest and analgesia. - Discussed expected course of illness ADDIS Hood APRN.CNP 09/29/2022 7:08 PM Signed ASSESSMENT/PLAN: 1. Dysuria - ICD9: 788.1, ICD10: R30.0 acute - UA positive for marleen esterase and nitrates - Send urine for culture - Begin treatment with cephalexin for 7 days - Patient education for prevention given - UA DIP, URINE (POC) - URINE CULTURE - CEPHALEXIN 500 MG CAPSULE - PHENAZOPYRIDINE 200 MG TABLET - Follow-up with your PCP in 3-5 days if symptoms have not improved or sooner if symptoms worsen - Discussed red flags and need for immediate medical evaluation if any occur. - Discussed supportive care treatment with fluids, rest and analgesia. - Discussed expected course of illness Chantal Burciaga APRN.CNP [facility] PATIENT INFO BLADDER INFECTION OVERVIEW Bladder infections are one of the most common infections, causing symptoms of burning with ur (more content not included)... Normal [facility] UA DIP, URINE (POC)on 2022 BILIRUBIN UA (POCT) Negative Negative [facility] CLARITY UA (POCT) Clear [facility] COLOR UA (POCT) Dark yellow [facility] GLUCOSE UA (POCT) Negative Negative mg/dL [facility] HEMOGLOBIN/BLOOD UA (POCT) Small Abnormal Negative [facility] KETONE UA (POCT) Negative Negative mg/dL [facility] LEUKOCYTES UA (POCT) Negative Negative [facility] NITRITE UA (POCT) Positive Abnormal Negative [facility] PH UA (POCT) 6.0 4.5 - 8.0 [facility] Protein Ql (U) Negative Negative mg/dL [facility] SPECIFIC GRAVITY UA (POCT) <=1.005 Abnormal 1.005 - 1.030 [facility] UROBILINOGEN UA (POCT) 0.2 E.U./dL Maranda l E.U./dL [facility] Laboratory - Chemistry and C hemistry - challengeOrdered By: Dr. Swift on 07-23-2022 Free T4 [Mass/Vol] 1.27 ng/dL 0.76-1.46 [facility] No Panel InformationOrdered By: Dr. Swift on 07-23-2022 Free Triiodothyronine (T3) pg/dL 2.2 pg/mL 2.18-3.98 [facility] Thyroid Stimulating Hormone (TSH) 1.40 uIU/mL 0.358-3.74 [facility] Absolute lymphocyte countOrd ered By: Dr. Swift on 04-29-2022 Lymphocytes Auto (Unsp spec) [#/Vol] 0.86 10*3/uL 0.83-4.51 [facility] Basophil percentageOrdered B y: Dr. Swift on 04-29-2022 Basophils/100 WBC (Bld) 1.0 % 0-1 [facility] Chloride [Moles/Vol] 95 mmol/L 98-[address] [facility] Cholesterol [Mass/Vol] 215 mg/dL <200 [facility] Comment on above: <200 mg/dL Desirable 200-240 mg/dL Borderline >240 mg/dL High Risk Eosinophils/100 WBC (Bld) 2.8 % 0-5 [facility] Glucose [Mass/Vol] 95 mg/dL 74-106 [facility] Neutrophils (Bld) [#/Vol] 2.5 10*3/uL 2.0-7.7 [facility] Neutrophils/100 WBC (Bld) 64.6 % 47-70 [facility] Potassium [Moles/Vol] 3.4 mmol/L 3.5-5.1 [facility] Sodium [Moles/Vol] 132 mmol/L 136-145 [facility] Triglyceride [Mass/Vol] 31 mg/dL <199 [facility] Comment on above: The drugs N-Acetylcy steine and Metamizole may falsely depress this assay.Serum Triglycerides Reference Interval Normal <150 mg/dL Borderline high 150 - 199 mg/dL High 200 - 499 mg/dL Very High > or = 500 mg/dL WBC (Bld) [#/Vol] 3.9 10*3/uL 4.4-11.0 [facility] Blood erythrocytes count (nu mber/volume)Ordered By: Dr. Swift on 04-29-2022 RBC (Bld) [#/Vol] 3.93 10*6/uL 4.2-5.4 [facility] Blood hemoglobin measurement (mass/volume)Ordered By: Dr. wSift on 04-29-2022 Hemoglobin (Bld) [Mass/Vol] 12.6 g/dL 12.0-15.0 [facility] Blood lymphocytes/100 leukoc ytesOrdered By: Dr. Swift on 04-29-2022 Lymphocytes/100 WBC (Bld) 21.9 % 19-41 [facility] Blood monocytes/100 leukocyt esOrdered By: Dr. Swift on 04-29-2022 Monocytes/100 WBC (Bld) 9.4 % 0-10 [facility] Blood platelet mean volumeOr dered By: Dr. Swift on 04-29-2022 Platelet mean volume (Bld) [Entitic vol] 9.2 fL 6.2-12.0 [facility] Determination of erythrocyte mean corpuscular volume (MCV)Ordered By: Dr. Swift on 04-29-2022 MCV (RBC) [Entitic vol] 95.7 fL 81-99 [facility] Hematocrit Auto (Bld) [Volum e fraction]Ordered By: Dr. Swift on 04-29-2022 Hematocrit (Bld) [Volume fraction] 37.6 % 37-47 [facility] - Chemistry and C hemistry - challengeOrdered By: Dr. Swift on 04-29-2022 CO2 [Moles/Vol] 30.0 mmol/L 21.0-32.0 [facility] Free T4 [Mass/Vol] 1.18 ng/dL 0.76-1.46 [facility] Urea nitrogen/Creatinine [Mass ratio] 16.5 mg/mg 10-20 [facility] - Hematology and Cell countsOrdered By: Dr. Swift on 04-29-2022 Erythrocyte distribution width (RBC) [Entitic vol] 46.3 fL 35.1-43.9 [facility] Erythrocyte distribution width (RBC) [Ratio] 13.0 % 11.6-14.6 [facility] Immature granulocytes/100 WBC (Bld) 0.300 % 0.0-0.9 [facility] Comment on above: IG% - Immature Granu locytes (promyelocytes, myelocytes and metamyelocytes) > 1% indicates that a LEFT SHIFT is Present. MCH (RBC) [Entitic mass] 32.1 pg 27.0-32.0 [facility] Nucleated RBC/100 WBC (Bld) [Ratio] 0 % 0-5 [facility] MCHC Auto (RBC) [Mass/Vol]Or dered By: Dr. Swift on 04-29-2022 MCHC (RBC) [Mass/Vol] 33.5 g/dL 32-36 [facility] No Panel InformationOrdered By: Dr. Swift on 04-29-2022 Estimated GFR (MDRD) Amer 104 mL/min >60 [facility] Comment on above: GFR Calc Estimated GFR (MDRD) Non-Af Amer 86 mL/min >60 [facility] Comment on above: Non- GFR Calc Free Triiodothyronine (T3) pg/dL 1.7 pg/mL 2.18-3.98 [facility] Thyroid Stimulating Hormone (TSH) 4.51 uIU/mL 0.358-3.74 [facility] Platelets bldOrdered By: Dr. Swift on 04-29-2022 Platelets (Bld) [#/Vol] 294 10*3/uL 150-450 [facility] Serum or plasma calcium evette urement (mass/volume)Ordered By: Dr. Swift on 04-29-2022 Calcium [Mass/Vol] 8.9 mg/dL 8.5-10.1 [facility] Serum or plasma cholesterol in HDL measurement (mass/volume)Ordered By: Dr. Swift on 04-29-2022 Cholesterol in HDL [Mass/Vol] 90 mg/dL >40 [facility] Comment on above: The drugs N-Acetylcy steine and Metamizole may falsely depress this assay. Reference Range HDL <40 mg/dL Low HDL Cholesterol HDL >or= 60 mg/dL High HDL Cholesterol Serum or plasma cholesterol in VLDL measurement (mass/volume)Ordered By: Dr. Swift on 04-29-2022 Cholesterol in VLDL [Mass/Vol] 6 mg/dL 5-40 [facility] Serum or plasma creatinine m easurement (mass/volume)Ordered By: Dr. Swift on 04-29-2022 Creatinine [Mass/Vol] 0.73 mg/dL 0.55-1.02 [facility] Comment on above: The validity of the calculated GFR & GFRAA in patients over 70 years has not been determined. Clinical correlation is essential. Serum or plasma low density lipoprotein (LDL) cholesterol measurement (mass/volume)Ordered By: Dr. Swift on 04-29-2022 Cholesterol in LDL [Mass/Vol] 119 mg/dL 0-130 [facility] Serum or plasma urea nitroge n measurement (mass/volume)Ordered By: Dr. Swift on 04-29-2022 Urea nitrogen [Mass/Vol] 12 mg/dL 7-18 [facility] Thin prep Papanicolaou smear with manual screeningOrdered By: Dr. Swift on 04-29-2022 Thin prep Papanicolaou smear with manual screening 7 5-15 [facility] Absolute lymphocyte countOrd ered By: Dr. Swift on 04-07-2022 Lymphocytes Auto (Unsp spec) [#/Vol] 1.01 10*3/uL 0.83-4.51 [facility] Basophil percentageOrdered B y: Dr. Swift on 04-07-2022 Basophils/100 WBC (Bld) 1.0 % 0-1 [facility] Eosinophils/100 WBC (Bld) 2.8 % 0-5 [facility] Neutrophils (Bld) [#/Vol] 3.2 10*3/uL 2.0-7.7 [facility] Neutrophils/100 WBC (Bld) 64.2 % 47-70 [facility] WBC (Bld) [#/Vol] 5.0 10*3/uL 4.4-11.0 [facility] Blood erythrocytes count (nu mber/volume)Ordered By: Dr. Swift on 04-07-2022 RBC (Bld) [#/Vol] 2.66 10*6/uL 4.2-5.4 [facility] Blood hemoglobin measurement (mass/volume)Ordered By: Dr. Swift on 04-07-2022 Hemoglobin (Bld) [Mass/Vol] 8.5 g/dL 12.0-15.0 [facility] Blood lymphocytes/100 leukoc ytesOrdered By: Dr. Swift on 04-07-2022 Lymphocytes/100 WBC (Bld) 20.2 % 19-41 [facility] Blood monocytes/100 leukocyt esOrdered By: Dr. Swift on 04-07-2022 Monocytes/100 WBC (Bld) 11.4 % 0-10 [facility] Blood platelet mean volumeOr dered By: Dr. Swift on 04-07-2022 Platelet mean volume (Bld) [Entitic vol] 9.3 fL 6.2-12.0 [facility] Determination of erythrocyte mean corpuscular volume (MCV)Ordered By: Dr. Swift on 04-07-2022 MCV (RBC) [Entitic vol] 98.9 fL 81-99 [facility] Hematocrit Auto (Bld) [Volum e fraction]Ordered By: Dr. Swift on 04-07-2022 Hematocrit (Bld) [Volume fraction] 26.3 % 37-47 [facility] Hemoglobin in reticulocytes (mass per reticulocyte)Ordered By: Dr. Swift on 04-07-2022 Hemoglobin (Reticulocytes) [Entitic mass] 31.4 pg 30-35 [facility] Laboratory - Hematology and Cell countsOrdered By: Dr. Swift on 04-07-2022 Erythrocyte distribution width (RBC) [Entitic vol] 57.8 fL 35.1-43.9 [facility] Erythrocyte distribution width (RBC) [Ratio] 16.7 % 11.6-14.6 [facility] Immature granulocytes/100 WBC (Bld) 0.400 % 0.0-0.9 [facility] Comment on above: IG% - Immature Granu locytes (promyelocytes, myelocytes and metamyelocytes) > 1% indicates that a LEFT SHIFT is Present. MCH (RBC) [Entitic mass] 32.0 pg 27.0-32.0 [facility] Nucleated RBC/100 WBC (Bld) [Ratio] 0 % 0-5 [facility] MCHC Auto (RBC) [Mass/Vol]Or dered By: Dr. Swift on 04-07-2022 MCHC (RBC) [Mass/Vol] 32.3 g/dL 32-36 [facility] No Panel InformationOrdered By: Dr. Swift on 04-07-2022 Immature Reticulocyte Fraction 31.00 % 3.00-15.90 [facility] Reticulocyte Count 9.15 % 0.5-1.5 [facility] Platelets bldOrdered By: Dr. Swift on 04-07-2022 Platelets (Bld) [#/Vol] 389 10*3/uL 150-450 [facility] Absolute lymphocyte counton 03-31-2022 Lymphocytes Auto (Unsp spec) [#/Vol] 0.88 10*3/uL 0.83-4.51 [facility] Work Phone: Basophil percentageon 2021 Basophils/100 WBC (Bld) 0.4 % 0-1 [facility] Work Phone: Bilirubin [Mass/Vol] 0.30 mg/dL 0.20-1.[address] [facility] Work Phone: Comment on above: For patients on eltr ombopag therapy, use of Dimension [place] TBIL is not recommended. Chloride [Moles/Vol] 104 mmol/L 98-[address] [facility] Work Phone: Eosinophils/100 WBC (Bld) 0.8 % 0-5 [facility] Work Phone: Glucose [Mass/Vol] 102 mg/dL 74-106 [facility] Work Phone: Comment on above: Fasting Glucose resu lt from 100 to 125 mg/dL suggests IMPAIRED HOMEOSTASIS per A.D.A. criteria. Neutrophils (Bld) [#/Vol] 3.8 10*3/uL 2.0-7.7 [facility] Work Phone: Neutrophils/100 WBC (Bld) 72.8 % 47-70 [facility] Work Phone: Potassium [Moles/Vol] 3.5 mmol/L 3.5-5.1 [facility] Work Phone: Protein [Mass/Vol] 5.3 g/dL 6.4-8.2 [facility] Work Phone: Sodium [Moles/Vol] 137 mmol/L 136-145 [facility] Work Phone: WBC (Bld) [#/Vol] 5.3 10*3/uL 4.4-11.0 [facility] Work Phone: Blood erythrocytes count (nu mber/volume)on 03-31-2022 RBC (Bld) [#/Vol] 2.50 10*6/uL 4.2-5.4 [facility] Work Phone: Blood hemoglobin measurement (mass/volume)on 03-31-2022 Hemoglobin (Bld) [Mass/Vol] 7.7 g/dL 12.0-15.0 [facility] Work Phone: Blood lymphocytes/100 leukoc yteson 03-31-2022 Lymphocytes/100 WBC (Bld) 16.8 % 19-41 [facility] Work Phone: Blood monocytes/100 leukocyt eson 03-31-2022 Monocytes/100 WBC (Bld) 8.8 % 0-10 [facility] Work Phone: Blood platelet mean volumeon 03-31-2022 Platelet mean volume (Bld) [Entitic vol] 10.0 fL 6.2-12.0 [facility] Work Phone: [phone] Determination of erythrocyte mean corpuscular volume (MCV)on 03-31-2022 MCV (RBC) [Entitic vol] 90.0 fL 81-99 [facility] Work Phone: Direct bilirubinon Bilirubin.direct [Mass/Vol] 0.10 mg/dL 0.00-0.30 [facility] Work Phone: Hematocrit Auto (Bld) [Volum e fraction]on 03-31-2022 Hematocrit (Bld) [Volume fraction] 22.5 % 37-47 [facility] Work Phone: INR in Blood by Coagulation assayon 03-31-2022 INR Coag (Bld) [Relative time] 1.1 {INR} [facility] Work Phone: [phone] Laboratory - Chemistry and C hemistry - challengeon 03-31-2022 ALP [Catalytic activity/Vol] 47 U/L 45-117 [facility] Work Phone: ALT [Catalytic activity/Vol] 19 U/L 13-56 [facility] Work Phone: CO2 [Moles/Vol] 28.0 mmol/L 21.0-32.0 [facility] Work Phone: [phone] Globulin (S) [Mass/Vol] 2.4 g/dL 2.2-4.2 [facility] Work Phone: [phone] Urea nitrogen/Creatinine [Mass ratio] 31.2 mg/mg 10-20 [facility] Work Phone: [phone] Laboratory - Coagulationon 1 PT Coag (PPP) [Time] 14.3 s 11.7-14.[address] [facility] Work Phone: [phone] Laboratory - Hematology and Cell countson 03-31-2022 Erythrocyte distribution width (RBC) [Entitic vol] 42.8 fL 35.1-43.9 [facility] Work Phone: [phone] Erythrocyte distribution width (RBC) [Ratio] 13.0 % 11.6-14.6 [facility] Work Phone: [phone] Immature granulocytes/100 WBC (Bld) 0.400 % 0.0-0.9 [facility] Work Phone: [phone] Comment on above: IG% - Immature Granu locytes (promyelocytes, myelocytes and metamyelocytes) > 1% indicates that a LEFT SHIFT is Present. MCH (RBC) [Entitic mass] 30.8 pg 27.0-32.0 [facility] Work Phone: Nucleated RBC/100 WBC (Bld) [Ratio] 0 % 0-5 [facility] Work Phone: [phone] MCHC Auto (RBC) [Mass/Vol]on 03-31-2022 MCHC (RBC) [Mass/Vol] 34.2 g/dL 32-36 [facility] Work Phone: [phone] No Panel Informationon 03-31 Estimated Creatinine Clearance Calc 99.15 ml/min [facility] Work Phone: Estimated GFR (MDRD) Amer 145 mL/min >60 [facility] Work Phone: Comment on above: GFR Calc Estimated GFR (MDRD) Non-Af Amer 120 mL/min >60 [facility] Work Phone: Comment on above: Non- GFR Calc Thyroid Stimulating Hormone (TSH) 4.93 uIU/mL 0.358-3.74 [facility] Work Phone: Platelets bldon 03-31-2022 Platelets (Bld) [#/Vol] 232 10*3/uL 150-450 [facility] Work Phone: Serum or plasma albumin evette urement (mass/volume)on 03-31-2022 Albumin [Mass/Vol] 2.9 g/dL 3.2-5.0 [facility] Work Phone: Serum or plasma albumin/glob ulin mass ratioon 03-31-2022 Albumin/Globulin [Mass ratio] 1.2 {ratio} 0.9-2.4 [facility] Work Phone: Serum or plasma calcium evette urement (mass/volume)on 03-31-2022 Calcium [Mass/Vol] 7.9 mg/dL 8.5-10.1 [facility] Work Phone: Serum or plasma creatinine m easurement (mass/volume)on 03-31-2022 Creatinine [Mass/Vol] 0.54 mg/dL 0.55-1.02 [facility] Work Phone: Comment on above: The validity of the calculated GFR & GFRAA in patients over 70 years has not been determined. Clinical correlation is essential. Serum or plasma urea nitroge n measurement (mass/volume)on 03-31-2022 Urea nitrogen [Mass/Vol] 17 mg/dL 7-18 [facility] Work Phone: Thin prep Papanicolaou smear with manual screeningon 03-31-2022 Thin prep Papanicolaou smear with manual screening 13 U/L 15-37 [facility] Work Phone: [phone] Thin prep Papanicolaou smear with manual screening 5 5-15 [facility] Work Phone: [phone] Thin prep Papanicolaou smear with manual screening 281 mOsm/KG 280-301 [facility] Work Phone: [phone] Absolute lymphocyte counton 03-30-2022 Lymphocytes Auto (Unsp spec) [#/Vol] 0.75 10*3/uL 0.83-4.51 [facility] Work Phone: [phone] Basophil percentageon 2021 Basophils/100 WBC (Bld) 0.2 % 0-1 [facility] Work Phone: [phone] Bilirubin [Mass/Vol] 0.30 mg/dL 0.20-1.[address] [facility] Work Phone: [phone] Comment on above: For patients on eltr ombopag therapy, use of Dimension [place] TBIL is not recommended. Chloride [Moles/Vol] 97 mmol/L 98-[address] [facility] Work Phone: [phone] Eosinophils/100 WBC (Bld) 0.2 % 0-5 [facility] Work Phone: [phone] Glucose [Mass/Vol] 115 mg/dL 74-106 [facility] Work Phone: [phone] Comment on above: Fasting Glucose resu lt from 100 to 125 mg/dL suggests IMPAIRED HOMEOSTASIS per A.D.A. criteria. Neutrophils (Bld) [#/Vol] 11.7 10*3/uL 2.0-7.7 [facility] Work Phone: [phone] Neutrophils/100 WBC (Bld) 89.4 % 47-70 [facility] Work Phone: [phone] Potassium [Moles/Vol] 3.6 mmol/L 3.5-5.1 [facility] Work Phone: [phone] Protein [Mass/Vol] 5.1 g/dL 6.4-8.2 [facility] Work Phone: [phone] Sodium [Moles/Vol] 131 mmol/L 136-145 [facility] Work Phone: WBC (Bld) [#/Vol] 13.1 10*3/uL 4.4-11.0 [facility] Work Phone: Blood erythrocytes count (nu mber/volume)on 03-30-2022 RBC (Bld) [#/Vol] 2.66 10*6/uL 4.2-5.4 [facility] Work Phone: [phone] Blood hemoglobin measurement (mass/volume)on 03-30-2022 Hemoglobin (Bld) [Mass/Vol] 8.4 g/dL 12.0-15.0 [facility] Work Phone: Blood lymphocytes/100 leukoc yteson 03-30-2022 Lymphocytes/100 WBC (Bld) 5.7 % 19-41 [facility] Work Phone: Blood monocytes/100 leukocyt eson 03-30-2022 Monocytes/100 WBC (Bld) 4.1 % 0-10 [facility] Work Phone: Blood platelet mean volumeon 03-30-2022 Platelet mean volume (Bld) [Entitic vol] 9.4 fL 6.2-12.0 [facility] Work Phone: [phone] Determination of erythrocyte mean corpuscular volume (MCV)on 03-30-2022 MCV (RBC) [Entitic vol] 91.4 fL 81-99 [facility] Work Phone: Hematocrit Auto (Bld) [Volum e fraction]on 03-30-2022 Hematocrit (Bld) [Volume fraction] 24.3 % 37-47 [facility] Work Phone: Iron measurement (mass/mass) on 03-30-2022 Iron (Unsp spec) [Mass/Mass] 81 ug/dL 50-170 [facility] Work Phone: [phone] Laboratory - Chemistry and C hemistry - challengeon 03-30-2022 Sodium (U) [Moles/Vol] 63 mmol/L Not Establ. [facility] Work Phone: [phone] ALP [Catalytic activity/Vol] 48 U/L 45-117 [facility] Work Phone: ALT [Catalytic activity/Vol] 19 U/L 13-56 [facility] Work Phone: CO2 [Moles/Vol] 27.0 mmol/L 21.0-32.0 [facility] Work Phone: [phone] Globulin (S) [Mass/Vol] 2.3 g/dL 2.2-4.2 [facility] Work Phone: [phone] Urea nitrogen/Creatinine [Mass ratio] 65.8 mg/mg 10-20 [facility] Work Phone: Laboratory - Hematology and Cell countson 03-30-2022 Erythrocyte distribution width (RBC) [Entitic vol] 42.7 fL 35.1-43.9 [facility] Work Phone: [phone] Erythrocyte distribution width (RBC) [Ratio] 12.9 % 11.6-14.6 [facility] Work Phone: [phone] Immature granulocytes/100 WBC (Bld) 0.400 % 0.0-0.9 [facility] Work Phone: [phone] Comment on above: IG% - Immature Granu locytes (promyelocytes, myelocytes and metamyelocytes) > 1% indicates that a LEFT SHIFT is Present. MCH (RBC) [Entitic mass] 31.6 pg 27.0-32.0 [facility] Work Phone: [phone] Nucleated RBC/100 WBC (Bld) [Ratio] 0 % 0-5 [facility] Work Phone: [phone] MCHC Auto (RBC) [Mass/Vol]on 03-30-2022 MCHC (RBC) [Mass/Vol] 34.6 g/dL 32-36 [facility] Work Phone: [phone] No Panel Informationon 03-30 Urine Potassium 21.0 mmol/L Not Establ. [facility] Work Phone: [phone] Estimated Creatinine Clearance Calc 96.26 ml/min [facility] Work Phone: [phone] Estimated GFR (MDRD) Amer 140 mL/min >60 [facility] Work Phone: Comment on above: GFR Calc Estimated GFR (MDRD) Non-Af Amer 116 mL/min >60 [facility] Work Phone: Comment on above: Non- GFR Calc Total Iron Binding Capacity 269 ug/dL 250-450 [facility] Work Phone: Platelets bldon 03-30-2022 Platelets (Bld) [#/Vol] 258 10*3/uL 150-450 [facility] Work Phone: Serum or plasma albumin evette urement (mass/volume)on 03-30-2022 Albumin [Mass/Vol] 2.8 g/dL 3.2-5.0 [facility] Work Phone: Serum or plasma albumin/glob ulin mass ratioon 03-30-2022 Albumin/Globulin [Mass ratio] 1.2 {ratio} 0.9-2.4 [facility] Work Phone: Serum or plasma calcium evette urement (mass/volume)on 03-30-2022 Calcium [Mass/Vol] 7.8 mg/dL 8.5-10.1 [facility] Work Phone: Serum or plasma creatinine m easurement (mass/volume)on 03-30-2022 Creatinine [Mass/Vol] 0.56 mg/dL 0.55-1.02 [facility] Work Phone: Comment on above: The validity of the calculated GFR & GFRAA in patients over 70 years has not been determined. Clinical correlation is essential. Serum or plasma ferritin greta surement (mass/volume)on 03-30-2022 Ferritin [Mass/Vol] 22 ng/mL 8-252 [facility] Work Phone: Serum or plasma urea nitroge n measurement (mass/volume)on 03-30-2022 Urea nitrogen [Mass/Vol] 37 mg/dL 7-18 [facility] Work Phone: Thin prep Papanicolaou smear with manual screeningon 03-30-2022 Thin prep Papanicolaou smear with manual screening 65 mmol/L Not Establ. [facility] Work Phone: Thin prep Papanicolaou smear with manual screening 13 U/L 15-37 [facility] Work Phone: Thin prep Papanicolaou smear with manual screening 7 5-15 [facility] Work Phone: Urine osmolality measurement on 03-30-2022 Osmolality (U) [Osmolality] 457 mOsm/KG >50 [facility] Work Phone: Comment on above: Normal Urine Referen ce Ranges Random: 50 - 1200 mOsm/kg H20 depending on fluid intake Random: >850 mOsm/kg after 12 hour fluid restriction 24 hour: ~300 - 900 mOsm/kg H2O Eveline 12-07-2021 ELLEN Telephone (MEGHAN) CLEMENTE OSUNA ([id number]) 1960 F Date Time Provider Department 12/07/21 JET MONTANEZ During your visit today, we recorded the following information about you: Jet Montanez DO 12/07/2021 8:14 AM Signed Can let her know her mammogram done at [facility] on 12/06/2021 was normal. A 1 year follow-up mammogram was recommended. Stefany Arana LPN 12/07/2021 8:19 AM Signed Pt notified, voices understanding. Stefany Arana LPN Allergies As of Date: 12/07/2021 (No Known Allergies) Date Reviewed: 01/27/2021 Reviewed by: Elyse Rukcer LPN - Fully Assessed Reason for Visit: Results [95] Cmt: Unilateral screening mammogram normal. Prescriptions as of 12/07/2021 - naproxen sodium (ALEVE) 220 mg tablet Take 220 mg by mouth as needed. - PROAIR HFA 90 mcg/actuation inhaler Inhale 2 Puffs as instructed every 4 hours as needed. - levothyroxine (SYNTHROID) 100 mcg tablet Take 100 mcg by mouth once daily. - lisinopril-hydrochlorothiazi de (PRINZIDE,ZESTORETIC) 10-12.5 mg per tablet Take 1 tablet by mouth once daily. - hydroCHLOROthiazide (HYDRODIURIL, ESIDRIX) 25 mg tablet Take 1/2 tablet by mouth once daily. - sertraline hcl(ZOLOFT 100 MG TAB) Take 1/2 tablet by mouth once daily. Problem List As Of Date 12/07/2021 Noted Resolved Lobular Hyperplasia, Atypical, Breast [N60.99] 08/21/2009 Ductal carcinoma in situ (DCIS) of left breast *01/09/2017 Encounter Status:Closed by STEFANY ARANA LPN on 12/07/21 Normal [facility] Laboratory - Chemistry and C hemistry - challengeon 10-29-2021 Free T4 [Mass/Vol] 1.20 ng/dL 0.76-1.46 [facility] Work Phone: No Panel Informationon 10-29 Free Triiodothyronine (T3) pg/dL 2.4 pg/mL 2.18-3.98 [facility] Work Phone: Thyroid Stimulating Hormone (TSH) 2.75 uIU/mL 0.358-3.74 [facility] Work Phone: Cervical or vagninal specime n microscopic examination by cytology stain (reported ason 09-22-2021 Cytology report Cyto stain Doc (Cvx/Vag) Comment . [facility] Work Phone: Comment on above: The Pap smear is a s creening test designed to aid in thedetection of premalignant and malignant conditions of theuterine cervix. It is not a diagnostic procedure andshould not be used as the sole means of detecting cervicalcancer. Both false-positive and false-negative reports dooccur. Detection in cervical specim en of any of human papilloma virus (HPV) 16, 18, 31, 33,on 09-22-2021 HPV 16+18+31+33+35+39+45+5 1+52+56+58+59+68 DNA Probe+sig amp Ql (Cvx) Negative [facility] Work Phone: Laboratory - Cytologyon [employer] Cyto stain Nom (Cvx/Vag) [ID] Comment . [facility] Work Phone: Comment on above: Faviola Mcginnis, Cytot echnologist (ASCP) Laboratory - Miscellaneous t estson 09-22-2021 Service comment (Unsp spec) [Interp] Comment . [facility] Work Phone: Comment on above: This liquid based Th inPrep(R) pap test was screened withthe use of an image guided system. Service comment (Unsp spec) [Interp] . . [facility] Work Phone: No Panel Informationon 09-22 Pathology report final diagnosis Narrative Comment . [facility] Work Phone: Comment on above: NEGATIVE FOR INTRAEP ITHELIAL LESION OR MALIGNANCY.CELLULAR CHANGES ASSOCIATED WITH ATROPHY ARE PRESENT. Cervical or vagninal specime n microscopic examination by cytology stain (reported ason 06-24-2021 Cytology report Cyto stain Doc (Cvx/Vag) Comment [facility] Work Phone: Comment on above: The Pap smear is a s creening test designed to aid in thedetection of premalignant and malignant conditions of theuterine cervix. It is not a diagnostic procedure andshould not be used as the sole means of detecting cervicalcancer. Both false-positive and false-negative reports dooccur. Detection in cervical specim en of any of human papilloma virus (HPV) 16, 18, 31, 33,on 06-24-2021 HPV 16+18+31+33+35+39+45+5 1+52+56+58+59+66+68 DNA Probe+sig amp Ql (Cvx) Negative Negative [facility] Work Phone: Comment on above: This nucleic acid am plification test detects fourteen high- risk HPV types (16,18,31,33,35,39,45,51,52,56,58,59,66,68)without differentiation.Performed at: [facility], [place] [id number] Director: Carmina Knapp MD, Phone: [phone] at: = - [facility] [id number], [place] [id number] Director: Carmina Knapp MD, Phone: [phone] Laboratory - Cytologyon [employer] Cyto stain Nom (Cvx/Vag) [ID] Comment [facility] Work Phone: Comment on above: Anh Reese Cytot echnologist (ASCP) Pathologist Cyto stain Nom (Cvx/Vag) [ID] Comment [facility] Work Phone: Comment on above: Mary Kay Agarwal MD, Pa thologist Laboratory - Miscellaneous t estson 06-24-2021 Service comment (Unsp spec) [Interp] Comment [facility] Work Phone: Comment on above: COMMENT: SPOKE TO BRUCE RODRIGUEZ (RN) ON 07/01/21. This liquid based Th inPrep(R) pap test was screened withthe use of an image guided system. Service comment (Unsp spec) [Interp] . [facility] Work Phone: No Panel Informationon 06-24 Pap Smear Specimen Adequacy Comment [facility] Work Phone: Comment on above: Specimen processed a nd examined but unsatisfactory for evaluation ofepithelial abnormality because of insufficient cellularity.Specimen processed and examined, but unsatisfactory for evaluation ofepithelial abnormality because of excessive lubricant. Pathology report final diagnosis Narrative Comment [facility] Work Phone: Comment on above: UNSATISFACTORY FOR E VALUATION.SPECIMEN REPROCESSED FOR INTERPRETATION. Cervical or vagninal specime n microscopic examination by cytology stain (reported ason 06-16-2021 Cytology report Cyto stain Doc (Cvx/Vag) Comment [facility] Work Phone: Comment on above: The Pap smear is a s creening test designed to aid in thedetection of premalignant and malignant conditions of theuterine cervix. It is not a diagnostic procedure andshould not be used as the sole means of detecting cervicalcancer. Both false-positive and false-negative reports dooccur. Detection in cervical specim en of any of human papilloma virus (HPV) 16, 18, 31, 33,on 06-16-2021 HPV 16+18+31+33+35+39+45+5 1+52+56+58+59+66+68 DNA Probe+sig amp Ql (Cvx) Negative Negative [facility] Work Phone: Comment on above: This nucleic acid am plification test detects fourteen high- risk HPV types (16,18,31,33,35,39,45,51,52,56,58,59,66,68)without differentiation.Performed at: [address] [id number] Director: Carmina Knapp MD, Phone: [phone] at: =[address] [id number] Director: Carmina Knapp MD, Phone: [phone] Laboratory - Cytologyon 05-20 [employer] Cyto stain Nom (Cvx/Vag) [ID] Comment [facility] Work Phone: Comment on above: Margo Louise Cytotec hnologist (ASCP) Recommended follow-up Cyto stain Nom (Cvx/Vag) Comment [facility] Work Phone: Comment on above: Suggest follow up as clinically appropriate. Laboratory - Miscellaneous t estson 06-16-2021 Service comment (Unsp spec) [Interp] Comment [facility] Work Phone: Comment on above: This liquid based Th inPrep(R) pap test was screened withthe use of an image guided system. Service comment (Unsp spec) [Interp] . [facility] Work Phone: No Panel Informationon 06-16 Pap Smear Specimen Adequacy Comment [facility] Work Phone: Comment on above: Specimen processed a nd examined but unsatisfactory for evaluation ofepithelial abnormality because of insufficient cellularity. Pathology report final diagnosis Narrative Comment [facility] Work Phone: Comment on above: UNSATISFACTORY FOR E VALUATION. Lower GI hemoglobin IA Ql (S tl) Stool Occult Blood (CHRIS) Positive [facility] Work Phone: Vital Signs Date Time Vital Sign Value Performing Clinician Brittney aguirre 09-29-2022 17:56-0400 Body temperature 97 [degF] Chantal Praisler-Wood SALES AND MERCHANDISING REPRESENTATIVE.REGULATORY SUBMISSIONS ASSOCIATE Work Phone: [facility] 09-29-2022 17:56-0400 Body weight 62.6 kg Chantal Praisler-Wood SALES AND MERCHANDISING REPRESENTATIVE.REGULATORY SUBMISSIONS ASSOCIATE Work Phone: [facility] 09-29-2022 17:56-0400 Diastolic blood pressure 80 mm[Hg] Chantal Praisler-Wood SALES AND MERCHANDISING REPRESENTATIVE.REGULATORY SUBMISSIONS ASSOCIATE Work Phone: [facility] 09-29-2022 17:56-0400 Heart rate 78 /min Chantal Praisler-Wood SALES AND MERCHANDISING REPRESENTATIVE.REGULATORY SUBMISSIONS ASSOCIATE Work Phone: [facility] 09-29-2022 17:56-0400 Respiratory rate 14 /min Chantal Praisler-Wood SALES AND MERCHANDISING REPRESENTATIVE.REGULATORY SUBMISSIONS ASSOCIATE Work Phone: [facility] 09-29-2022 17:56-0400 Systolic blood pressure 122 mm[Hg] Chantal Praisler-Wood SALES AND MERCHANDISING REPRESENTATIVE.REGULATORY SUBMISSIONS ASSOCIATE Work Phone: [facility] 06-07-2022 13:30-0500 Body temperature 98.2 [degF] Dr. Jet Swift Work Phone: [facility] 06-07-2022 13:30-0500 Diastolic blood pressure 75 mm[Hg] Dr. Jet Swift Work Phone: [facility] 06-07-2022 13:30-0500 Heart rate 70 /min Dr. Jet Swift Work Phone: [facility] 06-07-2022 13:30-0500 Respiratory rate 16 /min Dr. Jet Swift Work Phone: [facility] 06-07-2022 13:30-0500 SaO2% (BldA) [Mass fraction] 100 % Dr. Jet Swift Work Phone: [facility] 06-07-2022 13:30-0500 Systolic blood pressure 126 mm[Hg] Dr. Jet Swift Work Phone: [facility] 06-07-2022 12:09-0500 Body height 167.[address] Jet Swift Work Phone: [facility] 06-07-2022 12:09-0500 Body mass index (BMI) [Ratio] 21.7 kg/m2 Dr. Jet Swift Work Phone: [facility] 06-07-2022 12:09-0500 Body weight [address] Jet Swift Work Phone: [facility] 03-31-2022 17:20-0400 Body temperature 98.2 [degF] Dr. Jet Swift Work Phone: [facility] Work Phone: 03-31-2022 17:20-0400 Diastolic blood pressure 54 mm[Hg] Dr. Jet Swift Work Phone: [facility] Work Phone: 03-31-2022 17:20-0400 Heart rate 77 /min Dr. Jet Swift Work Phone: [facility] Work Phone: 03-31-2022 17:20-0400 Respiratory rate 16 /min Dr. Jet Swift Work Phone: [facility] Work Phone: 03-31-2022 17:20-0400 SaO2% (BldA) [Mass fraction] 100 % Dr. Jet Swift Work Phone: [facility] Work Phone: 03-31-2022 17:20-0400 Systolic blood pressure 117 mm[Hg] Dr. Jet Swift Work Phone: [facility] Work Phone: 03-31-2022 15:03-0400 Body height 167.[address] Jet Swift Work Phone: [facility] Work Phone: 03-31-2022 15:03-0400 Body weight 58.[address] Jet Swift Work Phone: [facility] Work Phone: 03-31-2022 14:48-0400 Body mass index (BMI) [Ratio] 20.8 kg/m2 Dr. Jet Swift Work Phone: [facility] Work Phone: 03-30-2022 13:08-0400 Body temperature 98.3 [degF] [facility] Work Phone: 03-30-2022 13:08-0400 Diastolic blood pressure 47 mm[Hg] [facility] Work Phone: 03-30-2022 13:08-0400 Heart rate 90 /min [facility] Work Phone: 03-30-2022 13:08-0400 Respiratory rate 18 /min [facility] Work Phone: 03-30-2022 13:08-0400 SaO2% (BldA) [Mass fraction] 100 % [facility] Work Phone: 03-30-2022 13:08-0400 Systolic blood pressure 99 mm[Hg] [facility] Work Phone: 03-30-2022 10:18-0400 Body height 167.64 cm [facility] Work Phone: 03-30-2022 10:18-0400 Body mass index (BMI) [Ratio] 22.4 kg/m2 [facility] Work Phone: 03-30-2022 10:18-0400 Body weight 63 kg [facility] Work Phone: 01-11-2021 15:20-0400 Body mass index (BMI) [Ratio] 29 kg/m2 [facility] Work Phone: Encounters Encounter Date Encounter Type Care Provider Facility Start: 09-07-2024 End: 09-07-[address] Jet Swift MD Work Phone: [facility] Work Phone: Start: 09-07-2024 End: 09-07-[address] Jet Swift MD -Laboratory Work Phone: Start: 09-07-2024 End: 09-07-2024 ambulatory Jet Swift Facility:[facility] Start: 05-28-2024 End: 05-28-[address] Jet Swift MD -Laboratory, [facility] Start: 05-28-2024 End: 05-28-2024 ambulatory Jet Swift Facility:[facility] Start: 05-22-2024 End: 05-22-[address] Jet Swift MD -Laboratory, [facility] Start: 05-22-2024 End: 05-22-2024 ambulatory Jet Swift Facility:[facility] Start: 01-29-2024 End: 01-29-2024 ambulatory Jet Swift Facility:[facility] Start: 01-29-2024 End: 01-29-2024 ambulatory Jet Swift Facility:[facility] Start: 12-11-2023 End: 12-11-2023 ambulatory Jet Swift Facility:[facility] Start: 11-22-2023 End: 11-22-2023 ambulatory Jet Swift Facility:[facility] Start: 12-08-2022 End: 12-08-2022 [facility] Work [facility]: Start: 12-08-2022 End: 12-08-2022 Patient encounter procedure [facility] Start: 10-17-2022 End: 10-17-[address] Jet Swift Work Phone: [facility] Work Phone: Start: 10-17-2022 End: 10-17-[address] Jet Swift Work Phone: [facility] Start: 10-01-2022 Telephone encounter Chantal Jha APRN.REGULATORY SUBMISSIONS ASSOCIATE Work Phone: [facility] Comment on above: Results Start: 09-29-2022 End: 09-29-2022 ambulatory [facility] Facility:[facility] Start: 09-29-2022 End: 09-29-2022 Patient encounter procedure Chantal Burciaga APRN.REGULATORY SUBMISSIONS ASSOCIATE Work Phone: [facility] Comment on above: Dysuria (Primary Dx) Start: 07-23-2022 End: 07-23-[address] Jet Swift Work Phone: [facility] Work Phone: Start: 07-23-2022 End: 07-23-[address] [facility] Start: 07-12-2022 End: 07-12-[address] Jet Swift Work Phone: [facility] Gastroenterology Start: 06-07-2022 Non-patient / Non-visit Dr. Jet Swift Work Phone: [facility] Start: 06-07-2022 End: 06-07-2022 Admission to same day surgery center Dr. eJt Swift Work Phone: [facility] Start: 06-07-2022 End: 06-07-[address] Jet Swift Work Phone: [facility] Work Phone: Start: 04-29-2022 End: 04-29-[address] Jet Swift Work Phone: [facility] Work Phone: Start: 04-29-2022 End: 04-29-[address] Jet Swift Work Phone: [facility] Start: 04-13-2022 End: 04-13-[address] Jet Swift Work Phone: [facility] G[facility] Start: 04-07-2022 End: 04-07-[address] Jet Swift Work Phone: [facility] Work Phone: Start: 04-07-2022 End: 04-07-[address] Jet Swift Work Phone: [facility] Start: 03-31-2022 Non-patient / Non-visit Dr. Jet Swift Work Phone: [facility] Start: 03-31-2022 Non-patient / Non-visit Dr. Jet Swift Work Phone: [facility] Start: 03-30-2022 End: 03-31-2022 Non-patient / Non-visit Dr. Jet Swift Work Phone: [facility] Start: 03-30-2022 End: 03-31-2022 Evaluation and management of inpatient [facility] Start: 12-06-2021 End: 12-06-2021 Patient encounter procedure [facility] Start: 10-29-2021 End: 10-29-2021 [facility] Start: 09-22-2021 End: 09-22-2021 [facility] Start: 06-24-2021 End: 06-24-2021 Patient encounter procedure [facility] Start: 06-16-2021 Patient encounter procedure [facility] Procedures Date Procedure Procedure Detail Performing Clinician Start: 12-08-2022 Screening mammography of right breast Start: 09-29-2022 Urnls dip stick/tablet rgnt auto w/o microscopy Juan R Rodriguez MD Work Phone: Start: 06-07-[address] Jet beard Work Phone: Start: 03-31-[address] Jet beard Work Phone: Start: 12-06-2021 Screening mammography of right breast Measurement of occul t blood in stool specimen using immunoassay Plan of Treatment Date Care Activity Detail Author Start: 09-29-2022 End: 11-29-2022 Bacteria identified in Urine by Culture [facility] Work Phone: Comment on above: Expected: 09/29/2022 , Expires: 11/29/2022 Start: 06-19-2022 DEPRESSION ASSESSMENT DEPRESSION ASS ESSMENT [facility] Start: 06-07-2022 Egd transoral biopsy single/multiple EGD BIOPSY SINGLE/MULTIPLE [facility] Start: 06-07-2022 Patient discharge [facility] Start: 03-31-2022 Patient discharge [facility] Work Phone: Start: 03-30-2022 Catheterization of vein [facility] Work Phone: Start: 03-30-2022 Referral to gastroenterology service [facility] Work Phone: Start: 03-30-2022 Application of intermittent pneumatic compression device [facility] Work Phone: Start: 03-30-2022 Following clinical p athway protocol [facility] Work Phone: Start: 03-30-2022 Assessment of risk o f venous thromboembolism [facility] Work Phone: Start: 03-30-2022 Documentation procedure [facility] Work Phone: Start: 03-30-2022 Insertion of cathete r into peripheral vein [facility] Work Phone: Start: 03-30-2022 Providing care accor ding to standard [facility] Work Phone: Start: 03-30-2022 Provision of activit y privileges [facility] Work Phone: Start: 03-30-2022 [facility] Work Phone: Start: 03-30-2022 Leukocyte reduced re d blood cells [facility] Work Phone: Start: 03-30-2022 Verification routine [facility] Work Phone: Start: 03-30-2022 Admission procedure [facility] Work Phone: Start: 2008 SHINGRIX VACCINE (1 of 2) DODSON GRIX VACCINE (1 of 2) [facility] Start: 12-01-2003 COLOGUARD (FIT-DNA) COLOGUARD (FIT-D NA) [facility] Start: 12-01-2003 Colonoscopy COLONOSCOPY [facility] Start: 12-01-2003 COLORECTAL CANCER SCREENING COLORECTAL CANCER SCREENING [facility] Start: 12-01-[address] COLONOGRAPHY [facility] Start: 12-01-2003 DIABETES SCREEN DIABETES SCREEN [facility] Start: 12-01-2003 FECAL OCCULT BLOOD FECAL OCCULT BLOO D [facility] Start: 12-01-2003 LIPID SCREEN LIPID SCREEN [facility] Start: 12-01-2003 SIGMOIDOSCOPY SIGMOIDOSCOPY [facility] Start: 1998 Mammography MAMMOGRAM [facility] Start: 1988 HPV TESTING HPV TESTING [facility] Start: 12-01-1979 PAP TESTING PAP TESTING [facility] Start: 1977 Urine microalbumin profile DTAP,TDAP ,TD (1 - Tdap) [facility] Start: 1976 [facility]: [facility] HIV SCREENING HIV SCREENING [facility] Start: 06-01-1959 COVID-19 VACCINE (#1) COVID-19 VACCI NE (#1) [facility] Ferritin [Mass/volum e] in Serum or Plasma [facility] Work Phone: Hemoglobin [Mass/vol ume] in Blood [facility] Work Phone: Iron [Mass/mass] in Unspecified specimen [facility] Work Phone: Iron and Iron bindin g capacity panel - Serum or Plasma [facility] Work Phone: Patient Education ED Upper GI Bl eeding (Stable) [facility] Work Phone: Patient referral [facility] Work Phone: Immunizations Immunization Date Immunization Notes Care Provider Fa cility 02-17-2022 influenza, injectabl e, quadrivalent, preservative free Dr. Jet Swift MD Work Phone: [facility] 02-17-2022 influenza, seasonal, injectable Dr. Jet Swift Work Phone: [facility] Payers Date Payer Category Payer Medicare [id number] 2023 Self-pay [id number] 2023 Unknown [id number] 2019 Unknown [id number] 2019 Unknown AULTCARE AULTCAR E SELECT MIR [id number] 2019-Present [phone] [address] [place] [id number] O [id number] 2011 Unknown UMR ROSS [id number] Unknown 0 [id number] Unknown [id number] Unknown [id number] Unknown [id number] Unknown [id number] Unknown [id number] Unknown [id number] Unknown [id number] Social History Date Type Detail Facility Start: 01-11-2021 End: 07-12-2022 Tobacco smoking status MEIS Unknown if ever smoked [facility] Start: 1960 Sex Assigned At Female W [facility] Start: 07-12-2022 End: 09-29-2022 Tobacco smoking status NHIS Never smoked tobacco [facility] Start: 09-29-2022 Tobacco use and exposure Smokeless tobacco non-user [facility] Start: 09-29-2022 Alcohol intake 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 (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) [facility] Start: 09-11-2024 Sex Female (finding) [facility] Medical Equipment Procedure Code Equipment Code Equipment Origin al Text Equipment Identifier Dates SUTURE,LIGA CLIP MED [id number] FDA Start: 01-07-2021 SUTURE,LIGA CLIP MED LT200 FDA Start: 01-07-2021 SUTURE,LIGA CLIP SM LT-100 FDA Start: 01-07-2021 SUTURE,LIGA CLIP SM LT-100 FDA Start: 01-07-2021 SUTURE,LIGA CLIP MED LT200 FDA Start: 01-07-2021 SUTURE,LIGA CLIP MED LT200 FDA Start: 01-07-2021 SUTURE,LIGA CLIP SM LT-100 FDA Start: 01-07-2021 SUTURE,LIGA CLIP SM LT-100 FDA Start: 01-07-2021 SUTURE,LIGA CLIP MED LT200 FDA Start: 01-07-2021 SUTURE,LIGA CLIP MED LT200 FDA Start: 01-07-2021 SUTURE,LIGA CLIP SM LT-100 FDA Start: 01-07-2021 SUTURE,LIGA CLIP SM LT-100 FDA Start: 01-07-2021 SUTURE,LIGA CLIP MED LT200 FDA Start: 01-07-2021 SUTURE,LIGA CLIP MED LT200 FDA Start: 01-07-2021 SUTURE,LIGA CLIP SM LT-100 FDA Start: 01-07-2021 SUTURE,LIGA CLIP SM LT-100 FDA Start: 01-07-2021 SUTURE,LIGA CLIP MED LT200 FDA Start: 01-07-2021 SUTURE,LIGA CLIP MED LT200 FDA Start: 01-07-2021 SUTURE,LIGA CLIP SM LT-100 FDA Start: 01-07-2021 SUTURE,LIGA CLIP SM LT-100 FDA Start: 01-07-2021 SUTURE,LIGA CLIP MED LT200 FDA Start: 01-07-2021 SUTURE,LIGA CLIP MED LT200 FDA Start: 01-07-2021 SUTURE,LIGA CLIP SM LT-100 FDA Start: 01-07-2021 SUTURE,LIGA CLIP SM LT-100 FDA Start: 01-07-2021 SUTURE,LIGA CLIP MED LT200 FDA Start: 01-07-2021 SUTURE,LIGA CLIP MED LT200 FDA Start: 01-07-2021 SUTURE,LIGA CLIP SM LT-100 FDA Start: 01-07-2021 SUTURE,LIGA CLIP SM LT-100 FDA Start: 01-07-2021 SUTURE,LIGA CLIP MED LT200 FDA Start: 01-07-2021 SUTURE,LIGA CLIP MED LT200 FDA Start: 01-07-2021 SUTURE,LIGA CLIP SM LT-100 FDA Start: 01-07-2021 SUTURE,LIGA CLIP SM LT-100 FDA Start: 01-07-2021 SUTURE,LIGA CLIP MED LT200 FDA Start: 01-07-2021 SUTURE,LIGA CLIP MED LT200 FDA Start: 01-07-2021 SUTURE,LIGA CLIP SM LT-100 FDA Start: 01-07-2021 SUTURE,LIGA CLIP SM LT-100 FDA Start: 01-07-2021 SUTURE,LIGA CLIP MED LT200 FDA Start: 01-07-2021 SUTURE,LIGA CLIP MED LT200 FDA Start: 01-07-2021 SUTURE,LIGA CLIP SM LT-100 FDA Start: 01-07-2021 SUTURE,LIGA CLIP SM LT-100 FDA Start: 01-07-2021 SUTURE,LIGA CLIP MED LT200 FDA Start: 01-07-2021 SUTURE,LIGA CLIP MED LT200 FDA Start: 01-07-2021 SUTURE,LIGA CLIP SM LT-100 FDA Start: 01-07-2021 SUTURE,LIGA CLIP SM LT-100 FDA Start: 01-07-2021 Goals Date Patient Goal Desired Activity /State Functional Status Date Assessment Result Facility 03-31-2022 Functional status Ambulates [facility] Work Phone: Mental Status Date Assessment Result Facility 06-07-2022 Cognitive function Voice/Name [facility] Work Phone: 03-31-2022 Cognitive function Voice/Name [facility] Work Phone: 03-30-2022 Cognitive function Level Of Cons ciousness Awake;Alert;Appropriate [facility] Work Phone: Clinical Notes 06-16-2021 to 10-01-2022 Telephone Encounter - Gin Burciaga - 10/01/2022 10:28 AM EDTTelephone Encounter - Gin Burciaga - 10/01/2022 10:27 AM EDTPatient InstructionsChantal Burciaga APRN.CNP - 09/29/2022 6:51 PM EDT Note Date & Type Note Facility 10-01-2022 Miscellaneous Notes Patient given results and verbalized understanding of instructions given. Gin Burciaga ----- Message from Chantal Burciaga APRN.CNP sent at 10/01/2022 8:14 AM EDT ----- Urine culture did not show clear evidence of infection, however it appears sample may have been contaminated with skin bacteria during collection. She may continue to take antibiotic if it has been helpful. Recommend follow up with PCP to ensure hematuria has resolved. Chantal Burciaga CNP documented in this encounter [facility] 09-29-2022 Note HNO ID: [id number] Author: Chantal Burciaga APRN.CNP Service: ? Author Type: Nurse Practitioner Type: Progress Notes Filed: 09/29/2022 7:10 PM Note Text: Subjective UTI Associated symptoms include frequency. Pertinent negatives include no chills, no nausea, no vomiting and no hematuria. Clemente Osuna is a 61 year old female who presents with 2 days of urinary frequency and dysuria. She denies fever, nausea, vomiting, or abdominal pain. She has had some low back pain. She has been taking AZO OTC for the pain. Review of Systems Constitutional: Negative for chills and fever. Respiratory: Negative. Cardiovascular: Negative. Gastrointestinal: Negative for abdominal pain, nausea and vomiting. Genitourinary: Positive for dysuria and frequency. Negative for hematuria. Musculoskeletal: Positive for back pain. BP 122/80 Pulse 78 Temp 36.1 ?C (97 ?F) (Tympanic) Resp 14 Wt 62.6 kg (138 lb) BMI 22.79 kg/m? PAST MEDICAL HISTORY Diagnosis Date Anxiety Hypercholesterolemia Hypertension Hypertrophy of breast lobular hyperplasia, left breast Mammographic microcalcification 07/2009 Thyroid cancer (HCC) 1989 PAST SURGICAL HISTORY Procedure Laterality Date BREAST LUMPECTOMY HX Left 12/21/2016 BRST NDL LOC WIRE PLCMT LT 10/01/2009 LEFT BREAST EXC BREAST LES PREOP PLMT RAD MARKER OPEN 1 LES 10/01/2009 LEFT BREAST Excision breast cyst x3 STEREOTACTIC CORE BIOPSY 08/13/2009 Thryoidectomy Total TONSILLECTOMY HX US BREAST NEEDLE CORE BIOPSY LT ALLERGIES Patient has no known allergies. MEDICATIONS levothyroxine (SYNTHROID) 100 mcg tablet Take 100 mcg by mouth once daily. lisinopril-hydrochlorothiazide (PRINZIDE,ZESTORETIC) 10-12.5 mg per tablet Take 1 tablet by mouth once daily. sertraline hcl(ZOLOFT 100 MG TAB) Take 1/2 tablet by mouth once daily. naproxen sodium (ALEVE) 220 mg tablet Take 220 mg by mouth as needed. PROAIR HFA 90 mcg/actuation inhaler Inhale 2 Puffs as instructed every 4 hours as needed. hydroCHLOROthiazide (HYDRODIURIL, ESIDRIX) 25 mg tablet Take 1/2 tablet by mouth once daily. FAMILY HISTORY Problem Relation Age of Onset other (Heart Disease) Mother other (Heart disease) Father Cancer Maternal Grandfather colon Social History Tobacco Use Smoking status: Never Smokeless tobacco: Never Vaping Use Vaping Use: Never used Substance Use Topics Alcohol use: No Drug use: No Objective Physical Exam Vitals and nursing note reviewed. Constitutional: General: She is not in acute distress. Appearance: Normal appearance. She is not toxic-appearing. Cardiovascular: Rate and Rhythm: Normal rate and regular rhythm. Heart sounds: Normal heart sounds. Pulmonary: Effort: Pulmonary effort is normal. No respiratory distress. Breath sounds: Normal breath sounds. No wheezing. Abdominal: General: There is no distension. Palpations: Abdomen is soft. There is no mass. Tenderness: There is no abdominal tenderness. There is no right CVA tenderness, left CVA tenderness or guarding. Skin: General: Skin is warm and dry. Neurological: Mental Status: She is alert. ASSESSMENT/PLAN: 1. Dysuria - ICD9: 788.1, ICD10: R30.0 acute - UA positive for marleen esterase and nitrates - Send urine for culture - Begin treatment with cephalexin for 7 days - Patient education for prevention given - UA DIP, URINE (POC) - URINE CULTURE - CEPHALEXIN 500 MG CAPSULE - PHENAZOPYRIDINE 200 MG TABLET - Follow-up with your PCP in 3-5 days if symptoms have not improved or sooner if symptoms worsen - Discussed red flags and need for immediate medical evaluation if any occur. - Discussed supportive care treatment with fluids, rest and analgesia. - Discussed expected course of illness Chantal Burciaga APRN.CNP [facility] 09-29-2022 Instructions Chantal Burciaga APRN.CNP - 09/29/2022 7:07 PM EDT ASSESSMENT/PLAN: 1. Dysuria - ICD9: 788.1, ICD10: R30.0 acute - UA positive for marleen esterase and nitrates - Send urine for culture - Begin treatment with cephalexin for 7 days - Patient education for prevention given - UA DIP, URINE (POC) - URINE CULTURE - CEPHALEXIN 500 MG CAPSULE - PHENAZOPYRIDINE 200 MG TABLET - Follow-up with your PCP in 3-5 days if symptoms have not improved or sooner if symptoms worsen - Discussed red flags and need for immediate medical evaluation if any occur. - Discussed supportive care treatment with fluids, rest and analgesia. - Discussed expected course of illness Chantal Burciaga APRN.MIREYA [facility] CARE PATIENT INFO BLADDER INFECTION OVERVIEW Bladder infections are one of the most common infections, causing symptoms of burning with urination and needing to urinate frequently. A bladder infection is a type of urinary tract infection (UTI). Bladder infections are more common is women than men. Most women have an uncomplicated bladder infection that is easily treated with a short course of antibiotics. In men, bladder infections may also affect the prostate gland, and a longer course of treatment may be needed. BLADDER INFECTION CAUSES The urinary tract includes the kidneys (which filter urine), ureters (the tube that carries urine from the kidneys to the bladder), the bladder (which stores urine), and urethra (the tube that carries urine out of the bladder). Bacteria do not normally live in these areas. However, bacteria normally live close to the urethra in women and men who are not circumcised. Bladder infections occur when bacteria travel up the urethra into the bladder. Factors that increase the risk of developing a bladder infection include: Vaginal sex Use of spermicides History of past bladder infections Diabetes In men, not being circumcised or having anal sex increase the risk of bladder infections. BLADDER INFECTION SYMPTOMS The typical symptoms of a bladder infection include: Pain or burning when urinating Frequent need to urinate Urgent need to urinate Blood in the urine Fever, back pain, nausea, or vomiting are not common symptoms of a bladder infection, but can occur in people with a kidney infection (pyelonephritis). If you have these symptoms, you should call your doctor or nurse immediately. Is it a bladder infection or something else? -- Burning with urination can also occur in people with vaginitis (eg, yeast infection) or urethritis (inflammation of the urethra). For this reason, it is important to call your healthcare provider before assuming you have a bladder infection. BLADDER INFECTION DIAGNOSIS Simple bladder infections are usually diagnosed based upon your symptoms alone. However, most patients, especially those who have bladder infection symptoms for the first time, should see a healthcare provider for urine testing. Urine culture -- A urine culture is a test that uses a sample of urine to try and grow bacteria in a laboratory. It usually requires about 48 hours to get results. However, a urine culture is not always required to diagnose a bladder infection. Urine culture is often recommended if: You have never had a bladder infection before You have symptoms that are not typical for bladder infection You have had resistant bladder infections before You have frequent bladder infections You do not begin to feel better within 24 to 48 hours after starting antibiotics You are BLADDER INFECTION TREATMENT Bladder infection -- In young, healthy adolescents and adults with a bladder infection, the usual treatment includes a three to seven day course of antibiotics. The typical drugs chosen are: trimethoprim-sulfamethoxazole (Bactrim ), nitrofurantoin (Macrobid ), ciprofloxacin (Cipro ) or levofloxacin (Levaquin ). In men, the infection may involve your prostate gland and treatment is usually given for at least 7 days. Your symptoms should begin to resolve within one day after starting treatment. It is important to take the full course of antibiotics to completely eliminate the infection. If your symptoms persist for more than two or three days after starting treatment, call your healthcare provider. If needed, you can take a prescription medication that numbs the bladder and urethra (phenazopyridine [Pyridium ]) to reduce the burning pain of some UTIs. A similar medication is available without a prescription (eg, Uristat). Both medications change the color of the urine (usually blue or orange) and can interfere with laboratory testing. You should not take these medications for more than 48 hours due to the risk of side effects. These medications do not treat the infection and must be taken along with an antibiotic. Some providers recommend drinking more fluids while treating bladder infections to help flush bacteria from the bladder. Others believe that drinking more fluids may dilute the antibiotic in the bladder and make the medication less effective. No studies have been performed to address this issue. There are also no good studies on the effectiveness of cranberry juice for treating a bladder infection; we do not recommend using cranberry juice to treat bladder infections. Follow-up care -- Follow-up testing is not needed in healthy, young men or women with a bladder infection if symptoms resolve. women are usually asked to have a repeat urine culture one to two weeks after treatment has ended to make sure the bacteria are no longer in the urine. RECURRENT BLADDER INFECTIONS Bladder infections versus other causes -- Some adults, especially women, develop bladder infections frequently. In this case, it is important to confirm that your symptoms (eg, pain or burning, frequency, and urgency) are caused by a bladder infection. Symptoms are usually similar from one infection to another. The best way to confirm an infection is to have a urine culture. If your urine culture is negative for infection, other causes of pain, burning, and frequency should be investigated. There is no reason to take antibiotics if your urine culture is negative. Need for further testing -- If you continue to develop bladder infections, you may require further testing. If you continue to notice blood in your urine after your bladder infection has cleared, you should have further testing. Preventing recurrent UTIs -- Women with recurrent urinary tract infections may be advised to take steps to prevent bladder infections, including one or more of the following: Changes in control -- Women who develop frequent bladder infections and use spermicides, particularly those who also use a diaphragm, may be encouraged to use an alternate method of control. Cranberry products -- Taking cranberry juice or cranberry tablets has been promoted as one way to help prevent frequent bladder infections. However, this has not been proven. Drinking more fluid and urinating after intercourse -- Although studies have not proven that drinking more fluids or urinating soon after intercourse can prevent infection, some healthcare providers recommend these measures since they are not harmful. Drinking more fluid may help to wash out bacteria that enter the bladder. Postmenopausal women -- Postmenopausal women who develop recurrent bladder infections may benefit from using vaginal estrogen. Vaginal estrogen is available in a flexible ring that is worn in the vagina for three months (eg, Estring ), a small tablet (Vagifem ), or a cream (eg, Premarin or Estrace ). Vaginal estrogen is discussed in more detail in a separate topic review. Antibiotics -- A preventive antibiotic treatment may be recommended if you repeatedly develop bladder infections and have not responded to other preventive measures. Antibiotics are highly effective in preventing recurrent bladder infections and can be taken in several different ways. Preventive antibiotic -- You can take a low dose of an antibiotic once per day or three times per week for six months to several years. Antibiotics following intercourse -- In women who develop urinary tract infections after sex, taking a single low dose antibiotic after intercourse can help to prevent bladder infections. Self-treatment -- A plan to begin antibiotics at the first sign of a bladder infection may be recommended in some situations. Before starting this regimen, it is important that you have had testing (urine cultures) to confirm that your symptoms are caused by a bladder infection; some people have symptoms of a bladder infection but do not actually have an infection. documented in this encounter [facility] 09-29-2022 History of Present illness Narrative Subjective UTI Associated symptoms include frequency. Pertinent negatives include no chills, no nausea, no vomiting and no hematuria. Clemente Osuna is a 61 year old female who presents with 2 days of urinary frequency and dysuria. She denies fever, nausea, vomiting, or abdominal pain. She has had some low back pain. She has been taking AZO OTC for the pain. Review of Systems Constitutional: Negative for chills and fever. Respiratory: Negative. Cardiovascular: Negative. Gastrointestinal: Negative for abdominal pain, nausea and vomiting. Genitourinary: Positive for dysuria and frequency. Negative for hematuria. Musculoskeletal: Positive for back pain. BP 122/80 Pulse 78 Temp 36.1 C (97 F) (Tympanic) Resp 14 Wt 62.6 kg (138 lb) BMI 22.79 kg/m PAST MEDICAL HISTORY Diagnosis Date Anxiety Hypercholesterolemia Hypertension Hypertrophy of breast lobular hyperplasia, left breast Mammographic microcalcification 07/2009 Thyroid cancer (HCC) 1989 PAST SURGICAL HISTORY Procedure Laterality Date BREAST LUMPECTOMY HX Left 12/21/2016 BRST NDL LOC WIRE PLCMT LT 10/01/2009 LEFT BREAST EXC BREAST LES PREOP PLMT RAD MARKER OPEN 1 LES 10/01/2009 LEFT BREAST Excision breast cyst x3 STEREOTACTIC CORE BIOPSY 08/13/2009 Thryoidectomy Total TONSILLECTOMY HX US BREAST NEEDLE CORE BIOPSY LT ALLERGIES Patient has no known allergies. MEDICATIONS levothyroxine (SYNTHROID) 100 mcg tablet Take 100 mcg by mouth once daily. lisinopril-hydrochlorothiazide (PRINZIDE,ZESTORETIC) 10-12.5 mg per tablet Take 1 tablet by mouth once daily. sertraline hcl(ZOLOFT 100 MG TAB) Take 1/2 tablet by mouth once daily. naproxen sodium (ALEVE) 220 mg tablet Take 220 mg by mouth as needed. PROAIR HFA 90 mcg/actuation inhaler Inhale 2 Puffs as instructed every 4 hours as needed. hydroCHLOROthiazide (HYDRODIURIL, ESIDRIX) 25 mg tablet Take 1/2 tablet by mouth once daily. FAMILY HISTORY Problem Relation Age of Onset other (Heart Disease) Mother other (Heart disease) Father Cancer Maternal Grandfather colon Social History Tobacco Use Smoking status: Never Smokeless tobacco: Never Vaping Use Vaping Use: Never used Substance Use Topics Alcohol use: No Drug use: No Objective Physical Exam Vitals and nursing note reviewed. Constitutional: General: She is not in acute distress. Appearance: Normal appearance. She is not toxic-appearing. Cardiovascular: Rate and Rhythm: Normal rate and regular rhythm. Heart sounds: Normal heart sounds. Pulmonary: Effort: Pulmonary effort is normal. No respiratory distress. Breath sounds: Normal breath sounds. No wheezing. Abdominal: General: There is no distension. Palpations: Abdomen is soft. There is no mass. Tenderness: There is no abdominal tenderness. There is no right CVA tenderness, left CVA tenderness or guarding. Skin: General: Skin is warm and dry. Neurological: Mental Status: She is alert. ASSESSMENT/PLAN: 1. Dysuria - ICD9: 788.1, ICD10: R30.0 acute - UA positive for marleen esterase and nitrates - Send urine for culture - Begin treatment with cephalexin for 7 days - Patient education for prevention given - UA DIP, URINE (POC) - URINE CULTURE - CEPHALEXIN 500 MG CAPSULE - PHENAZOPYRIDINE 200 MG TABLET - Follow-up with your PCP in 3-5 days if symptoms have not improved or sooner if symptoms worsen - Discussed red flags and need for immediate medical evaluation if any occur. - Discussed supportive care treatment with fluids, rest and analgesia. - Discussed expected course of illness Chantal Burciaga APRN.REGULATORY [employer]BMISSIONS ASSOCIATE documented in this encounter [facility] 09-22-2021 Note [facility] Work Phone: Pap Smear Specimen Adequacy September 22, 2021 10:01am Comment Satisfactory for evaluation. Endocervical component may not bedistinguished in cases of atrophy. Comment on above: Satisfactory for shyann luation. Endocervical component may not bedistinguished in cases of atrophy. 09-22-2021 Note [facility] Work Phone: Pap Smear Specimen Adequacy September 22, 2021 10:01am Comment . Satisfactory for evaluation. Endocervical component may not bedistinguished in cases of atrophy. Comment on above: Satisfactory for shyann luation. Endocervical component may not bedistinguished in cases of atrophy. 06-16-2021 Note [facility] Work Phone: Pap Smear QC Review June 16, 2021 3:30pm Comment Deborah Florentino, Supervisory Die Forger (ASCP) Comment on above: Deborah Florentino, Sup ervisory Die Forger (ASCP) Evaluation note No assessment information availa ble [facility] Work Phone: Evaluation note Diagnosis Onset Date GI bleed resolved [facility] Work Phone: Evaluation note* Diagnosis Onset Date Resolution Status GI bleed resolved GI bleed acute History of left mastectomy 2020 a cute [facility] Work Phone: Evaluation note* Diagnosis Onset Date Resolution Status History of left mastectomy 2020 a cute GI bleed resolved History of left mastectomy 2020 a cute Erosive gastropathy chronic Gastric ulcer resolved GI bleed resolved [facility] Work Phone: Evaluation note* Diagnosis Dysuria- Primary [facility] Diagnosis Onset Date Resolution Status History of left mastectomy 2020 a cute Erosive gastropathy chronic Gastric ulcer resolved GI bleed resolved [facility] Work Phone: Reason for referral (narrative)No reason for referral information [facility]: Advance Directives Advance Directive Response Recorded Date/ Time Living Will No January 01, 2021 1:16pm Power of Cardiac Catheterization Technician No January 01 1:16pm Advance Directive Response Recorded Date/ Time Name of Medical Power of Cardiac Catheterization Technician ted March 30, 2022 10:58am Living Will Yes March 30 10:58am Power of Cardiac Catheterization Technician Yes March 30, 2022 10:58am Advance Directive Response Recorded Date/ Time Name of Medical Power of Cardiac Catheterization Technician Ted Chenschuyler March 30, 2022 2:17pm Living Will Yes March 30 2:17pm Power of Cardiac Catheterization Technician Yes March 30, 2022 2:17pm Advance Directive Response Recorded Date/ Time Name of Medical Power of Cardiac Catheterization Technician Ted Chenschuyler March 30, 2022 1:17pm Living Will Yes March 30 1:17pm Power of Cardiac Catheterization Technician Yes March 30, 2022 1:17pm Advance Directive Response Recorded Date/ Time Name of Medical Power of Cardiac Catheterization Technician Tednayla Osuna March 30, 2022 1:17pm Name of Medical Power of Cardiac Catheterization Technician LUIS A OSUNA June 03, 2022 2:02pm Living Will Yes June 03, 022 2:02pm Power of Cardiac Catheterization Technician Yes June 03, 2022 2:02pm Advance Directive Response Recorded Date/ Time Name of Medical Power of Cardiac Catheterization Technician LUIS A OSUNA June 03, 2022 2:02pm Living Will Yes June 03, 022 2:02pm Power of Cardiac Catheterization Technician Yes June 03, 2022 2:02pm Advance Directive Response Recorded Date/ Time Living Will Yes June 03, 2 022 3:02pm Power of Cardiac Catheterization Technician Yes June 03, 2022 3:02pm Chief Complaint and Reason for Visit Chief Complaint SCREENING NO VACCINE Chief Complaint SCREENING NO VACCINE GIB, ANEMIA Chief Complaint GI BLEED GIB, ANEMIA GIB, ANEMIA GI BLEED GIB, ANEMIA H FU Reason for Visit GI bleed Chief Complaint GI BLEED GIB, ANEMIA GIB, ANEMIA GI BLEED GIB, ANEMIA H FU Reason for Visit GI bleed GI bleed History of left mastectomy Chief Complaint H FU 2wk f/u EORDERS Reason for Visit History of left mast ectomy GI bleed History of left mastectomy Erosive gastropathy Gastric ulcer GI bleed Chief Complaint 2wk f/u EORDERS Reason for Visit History of left mast ectomy Erosive gastropathy Gastric ulcer GI bleed Chief Complaint SCREENING *RIGHT SHANI AST* Chief Complaint Admit Date INT LAB ORDERS September 07, 2024 9:4 6am Family History Relationship Condition Age at Onset Recorded Date/T surjit mother Cardiac disease Unknown father Hydrocephalus Unknown Summary Purpose Additional Source Comments Goals (unrecognized section and content) Goals may be documented in a n alternate sectionGoals may be documented in an alternate sectionGoals may be documented in an alternate sectionGoals may be documented in an alternate sectionGoals may be documented in an alternate sectionGoals may be documented in an alternate section Care Teams (unrecognized sec tion and content) Team Status: Active Member Role Status Dates Dr. Meenakshi Forrest MD Family Provider Active Dr. Jet Swift MD Primary Care Provider Active Team Status: Inactive Member Role Status Dates Dr. Jet Swift MD Primary Care Provider, Referring Provider Active Dr. Yariel Michele DO Attending Provider Active Team Status: Active Member Role Status Dates Dr. Jet Swift MD Primary Care Provider, Referring Provider Active Dr. Yariel Michele DO Attending Provider, Other Prov ider Active Team Status: Inactive Member Role Status Dates Dr. 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 Jet Swift MD Primary Care Provider, Attending Provider Active Team Status: Inactive Member Role Status Dates Dr. Jet Swift MD Primary Care Provider Active Start: May 22, 2024 End: May 22, 2024 Dr. Jet Swift MD Attending Provider Active Start: May 22, 2024 End: May 22, 2024 Dr. Jet Swift MD Referring Provider Active Start: May 22, 2024 End: May 22, 2024 Team Status: Inactive Member Role Status Dates Dr. Jet Swift MD Primary Care Provider Active Start: May 28, 2024 End: May 28, 2024 Dr. Jet Swift MD Attending Provider Active Start: May 28, 2024 End: May 28, 2024 Team Status: Inactive Member Role Status Dates Dr. Jet Swift MD Primary Care Provider Active Start: September 07, 2024 End: September 07, 2024 Dr. Jet Swift MD Attending Provider Active Start: September 07, 2024 End: September 07, 2024 Dr. Jet Swift MD Referring Provider Active Start: September 07, 2024 End: September 07, 2024 Source Comments (unrecognize d section and content) In the event this informatio n is protected by the Federal Confidentiality of Alcohol and Drug Abuse Patient Records regulations: The Federal rules restrict any use of the information to criminally investigate or prosecute any alcohol or drug abuse patient.[facility] the event this information is protected by the Federal Confidentiality of Alcohol and Drug Abuse Patient Records regulations: The Federal rules restrict any use of the information to criminally investigate or prosecute any alcohol or drug abuse patient.[facility] Reason for Visit (unrecogniz ed section and content) Reason Comments UTI Dysuria, pressure x 2 days Reason Comments Results INFORMATION SOURCE (unrecogn ized section and content) DATE CREATED AUTHOR 10/04/2022 [facility] DATE CREATED AUTHOR AUTHOR'S [place] ATION 09/13/2024 [facility] FOR RECORDS PERTAINING TO PATIENTS WHO ARE OR HAVE BEEN ENROLLED IN A CHEMICAL DEPENDENCY/SUBSTANCEABUSE PROGRAM, SOME INFORMATION MAY BE OMITTED. This clinical summary was aggregated from multiple sources. Caution should be exercised in using it in the provision of clinical care. This summary normalizes information from multiple sources, and as a consequence, information in this document may materially change the coding, format and clinical context of patient data. In addition, data may be omitted in some cases. CLINICAL DECISIONS SHOULD BE BASED ON THE PRIMARY CLINICAL RECORDS. [id number] [facility]. provides no warranty or guarantee of the accuracy or completeness of information in this document.
== END | disposition home or self-care (01) ==
LOC: MFPLAB 10:51
PROVIDERS: PCP Family Medicine; Referring Provider Family Medicine; Visit Provider Family Medicine
DX: I10 Essential (primary) hypertension (principal); E03.9 Hypothyroidism, unspecified
CPT/HCPCS: 36415; 80053; 80061; 84439; 84443; 84481

== ENCOUNTER → 2024-12-11 | Outpatient (CLI) | payer MEDICARE, OTHER, SELFPAY ==
--- NOTE | 2024-12-11 09:57 | BI_ITS ---
EXAM: SCREEN MAMM (CAD) W/ANNETTA UNI R DATE: 12/11/2024 CLINICAL HISTORY: F, Age 64 y/o , SCREENING Personal history of breast cancer. Prior left mastectomy. TECHNIQUE: SCREEN MAMM (CAD) W/ANNETTA UNI R COMPARISON: Prior exam(s) dated December 11, 2023.. FINDINGS: TISSUE DENSITY: The breast tissue is heterogeneously dense, which may obscure small masses. Bilateral Breast Mammographic Findings: No significant masses, calcifications or other abnormalities are identified. Stable densely calcified nodule in the central retroareolar region of the right breast. No suspicious masses, areas of developing architectural distortion, or suspicious calcifications. There has been no significant interval change. BI/SCREEN MAMM (CAD) W/ANNETTA UNI R IMPRESSION: Stable examination OVERALL FINAL ASSESSMENT BI-RADS 2: BENIGN RECOMMEND ANNUAL MAMMOGRAPHIC SCREENING. RECOMMENDATION: Routine annual follow-up in 1 Year A letter with findings and recommendations will be mailed to the patient. Reading Location: [place]
== END | disposition home or self-care (01) ==
LOC: OPBI 09:55
PROVIDERS: PCP Family Medicine; Referring Provider Family Medicine; Visit Provider Family Medicine
DX: Z12.31 Encounter for screening mammogram for malignant neoplasm of breast (principal); Z85.3 Personal history of malignant neoplasm of breast; Z90.12 Acquired absence of left breast and nipple
CPT/HCPCS: 77063; 77067

== ENCOUNTER → 2024-12-19 | Outpatient (CLI) | payer MEDICARE, OTHER, SELFPAY ==
[2024-12-19 16:47] LABS: AST(SGOT) 23 U/L (<=31); Alanine Aminotransfer ALT/SGPT 21 U/L (<=34); Albumin, Serum 4.5 g/dL (3.4-4.8); Alkaline Phosphatase 81 U/L (35-104); Anion Gap 10 (5-15); BUN 15 mg/dL (4-19); BUN/Creat Ratio 22.9 RATIO (10-20); Calcium,Total 9.4 mg/dL (7.6-11.0); Carbon Dioxide 28.5 mmol/L (21.0-32.0); Chloride 91 mmol/L (98-108); Globulin 2.4 g/dL (2.2-4.2); Glucose 92 mg/dL (70-99); Potassium 4.1 mmol/L (3.3-5.1)
[2024-12-23 18:08] LABS: Thyroglobulin, Serum Qt. 0.1 ng/mL (1.5-38.5)
== END | disposition home or self-care (01) ==
LOC: LAB 14:25
PROVIDERS: PCP Family Medicine; Referring Provider Internal Medicine Endocrinology, Diabetes & Metabolism; Visit Provider Internal Medicine Endocrinology, Diabetes & Metabolism
DX: C73 Malignant neoplasm of thyroid gland (principal); R74.8 Abnormal levels of other serum enzymes
CPT/HCPCS: 36415; 80053; 84432; 86800

== ENCOUNTER → 2024-12-25 | Outpatient (CLI) | payer MEDICARE, OTHER, SELFPAY ==
--- NOTE | 2024-12-25 10:30 | BD_ITS ---
PROCEDURE: DEXA BONE DENSITY STUDY 12/25/2024 REASON FOR EXAM: X F, age 64 y/o . Postmenopausal. TECHNIQUE: DEXA BONE DENSITY STUDY COMPARISON: Prior study dated October 21, 2010. FINDINGS: BMD and T-SCORES Lumbar spine: 0.893 g/cm2, T-score -1.3 Levels: L1 through L4 Change from prior: Loss of 18.4%. Left femoral neck: 0.706 g/cm2, T-score -1.3 Femoral neck comparison data not recommended for monitoring change. Left total hip: 0.745 g/cm2, T-score -1.6 Change from prior: Loss of 23.1%. Right femoral neck: 0.698 g/cm2, T-score -1.4 Femoral neck comparison data not recommended for monitoring change. Right total hip: 0.817 g/cm2, T-score -1.0 Change from prior: Loss of 15.8%. The World Health Organization has defined the following categories based on bone density: Normal bone density: T-score equal to or greater than -1.0 Osteopenia: T-score between -1.0 and -2.5 Osteoporosis: T-score equal to or less than -2.5 The patient does meet the pharmacological treatment recommendations for prevention of osteoporosis. BD/Dexa Bone Density Study IMPRESSION: OSTEOPENIA. Recommend follow-up as clinically warranted. Reading Location: [place] [id number]
== END | disposition home or self-care (01) ==
LOC: OPBD 10:18
PROVIDERS: PCP Family Medicine; Referring Provider Internal Medicine Endocrinology, Diabetes & Metabolism; Visit Provider Internal Medicine Endocrinology, Diabetes & Metabolism
DX: C73 Malignant neoplasm of thyroid gland (principal); Z78.0 Asymptomatic menopausal state; M81.0 Age-related osteoporosis without current pathological fracture
CPT/HCPCS: 77080

== ENCOUNTER → 2025-01-20 | Outpatient (CLI) | payer MEDICARE, OTHER, SELFPAY ==
[2025-01-20 15:34] LABS: AST(SGOT) 21 U/L (<=31); Alanine Aminotransfer ALT/SGPT 31 U/L (<=34); Albumin, Serum 4.7 g/dL (3.4-4.8); Alkaline Phosphatase 90 U/L (35-104); Anion Gap 12 (5-15); BUN 13 mg/dL (4-19); BUN/Creat Ratio 17.8 RATIO (10-20); Calcium,Total 9.9 mg/dL (7.6-11.0); Carbon Dioxide 25.5 mmol/L (21.0-32.0); Chloride 94 mmol/L (98-108); Globulin 2.6 g/dL (2.2-4.2); Glucose 101 mg/dL (70-99); Potassium 4.7 mmol/L (3.3-5.1)
== END | disposition home or self-care (01) ==
LOC: LAB 13:19
PROVIDERS: PCP Family Medicine; Referring Provider Internal Medicine Endocrinology, Diabetes & Metabolism; Visit Provider Internal Medicine Endocrinology, Diabetes & Metabolism
DX: I10 Essential (primary) hypertension (principal)
CPT/HCPCS: 36415; 80053

== ENCOUNTER → 2025-04-14 | Outpatient (CLI) | payer MEDICARE, OTHER, SELFPAY ==
[2025-04-14 10:24] LABS: Anion Gap 9 (5-15); BUN 10 mg/dL (4-19); BUN/Creat Ratio 13.8 RATIO (10-20); Calcium,Total 9.2 mg/dL (7.6-11.0); Carbon Dioxide 26.1 mmol/L (21.0-32.0); Chloride 96 mmol/L (98-108); Glucose 120 mg/dL (70-99); Potassium 4.9 mmol/L (3.3-5.1)
== END | disposition home or self-care (01) ==
LOC: LAB 09:29
PROVIDERS: PCP Family Medicine; Referring Provider Internal Medicine Endocrinology, Diabetes & Metabolism; Visit Provider Internal Medicine Endocrinology, Diabetes & Metabolism
DX: I10 Essential (primary) hypertension (principal)
CPT/HCPCS: 36415; 80048

== ENCOUNTER → 2025-05-23 | Outpatient (CLI) | payer MEDICARE, OTHER, SELFPAY ==
[2025-05-23 13:14] LABS: Anion Gap 11 (5-15); BUN 11 mg/dL (4-19); BUN/Creat Ratio 15.7 RATIO (10-20); Calcium,Total 9.7 mg/dL (7.6-11.0); Carbon Dioxide 25.9 mmol/L (21.0-32.0); Chloride 94 mmol/L (98-108); Glucose 100 mg/dL (70-99); Potassium 4.8 mmol/L (3.3-5.1)
== END | disposition home or self-care (01) ==
LOC: MFPLAB 10:04
PROVIDERS: PCP Family Medicine; Visit Provider Family Medicine
DX: I10 Essential (primary) hypertension (principal)
CPT/HCPCS: 36415; 80048